=== PATIENT | male | born 1960 | race African-American/Black ===

== ENCOUNTER 2017-10-23 14:41 | Inpatient (IN) | payer OTHER ==
[2017-10-23 15:20] VITALS: BMI 28.8
--- NOTE | 2017-10-23 16:39 | HP ---
COWS - Scale Resting Pulse: 1= [place] 81-100 Sweatin=Flushed/Facial Moisture Restless Observation: 1= Difficult to Sit Still Pupil Size: 2= Moderately Dilated Bone or Joint Aches: 2= Severe Diffuse Aches Runny Nose/ Eye Tearin= None GI Upset > 30mins: 1= Stomach Cramp Tremor Observation: 1= Tremor [place], Not Seen Yawning Observation: 0= None Anxiety or Irritability: 2=Irritable/Anxious Goose Flesh Skin: 0=Smooth Skin COWS Score: 12 Admission [facility] Chief Complaint: Patient presents for Opiod withdrawal symptoms. Allergies/Adverse Reactions: Allergies Allergy/AdvReac Type Severity Reaction Status Date / Time Penicillins Allergy Severe Difficulty Verified 10/23/17 15:45 Breathing tomato [Tomato] Allergy Severe Hives Verified 10/23/17 15:45 pasta Allergy Severe Hives Uncoded 10/23/17 15:45 History of Present Illness: Patient presents for opiod withdrawal symptoms. Patient started taking Percocet at age 48 prescribed. After discontinuation of medication from MD patient started buying Percocet in the street. Patient takes up to 8 10/325mg tablets daily. Patient denies taking prescribed or non-prescribed Xanax. UDS negative for BZOs. Last time Percocet taken was early this morning. Patient also smoke crack/cocaine for 28 years. Smokes up to 100 dollars daily. Last time used was yesterday. PMH includes asthma. Denies SI/HI and suicide attempts. - Ebola screening Have you traveled outside of the country in the last 21 days: No Have you had contact with anyone from an Ebola affected area: No Have you been sick,other than usual withdrawal symptoms: No Do you have a fever: No - Review of Systems Constitutional: Chills, Night Sweats, Changes in sleep EENT: reports: No Symptoms Reported Respiratory: reports: No Symptoms reported Cardiac: reports: No Symptoms Reported GI: reports: Poor Fluid Intake, Abdominal cramping : reports: No Symptoms Reported Musculoskeletal: reports: Joint Pain, Muscle Pain Integumentary: reports: Sweating Neuro: reports: Headache, Tremors Endocrine: reports: No Symptoms Reported Hematology: reports: No Symptoms Reported Psychiatric: reports: Orientated x3, Anxious, Depressed Patient History - Patient Medical History Hx Anemia: No Hx Asthma: Yes (ON PUMP) Hx Chronic Obstructive Pulmonary Disease (COPD): No Hx Cancer: No Hx Cardiac Disorders: No Hx Congestive Heart Failure: No Hx Hypertension: Yes (not on meds) Hx Hypercholesterolemia: No Hx Pacemaker: No HX Cerebrovascular Accident: No Hx Seizures: No Hx Dementia: No Hx Diabetes: No Hx Gastrointestinal Disorders: No Hx Liver Disease: Yes Hx Genitourinary Disorders: No Hx Sexually Transmitted Disorders: Yes (GONORRHEA 1993) Hx Renal Disease (ESRD): No Hx Thyroid Disease: No Hx Human Immunodeficiency Virus (HIV): No Hx Hepatitis C: Yes (not treated) Hx Depression: No Hx Suicide Attempt: No Hx Bipolar Disorder: No Hx Schizophrenia: No - Patient Surgical History Past Surgical History: Yes Hx Neurologic Surgery: No Hx Cataract Extraction: No Hx Cardiac Surgery: No Hx Lung Surgery: No Hx Breast Surgery: No Hx Breast Biopsy: No Hx Abdominal Surgery: No Hx Appendectomy: Yes (1973) Hx Cholecystectomy: No Hx Genitourinary Surgery: No Hx Section: No Hx Orthopedic Surgery: Yes (right hip replacement in 07/2009) Hx Hysterectomy: No Other Surgical History: left mandible in 1988 Anesthesia Reaction: No - PPD History Results: CXR(-)03/25 PPD to be Administered?: No - Smoking Cessation Smoking history: Former smoker Have you smoked in the past 12 months: No Aproximately how many cigarettes per day: 2 If you are a former smoker, when did you quit?: 12/2015 Cigars Per Day: 0 Hx Chewing Tobacco Use: No Initiated information on smoking cessation: No - Substance & Tx. History Hx Alcohol Use: No Hx Substance Use: Yes Substance Use Type: Cocaine, Opiates Hx Substance Use Treatment: Yes - Substances Abused Cocaine Route: Smoking Frequency: 3-6 times per week Amount used: $100 Age of first use: 28 Date of Last Use: 10/22/17 PERCOCET Route: Oral Frequency: Daily Amount used: 5 -6 10MG PILLS DAILY Age of first use: 48 Date of Last Use: 10/22/17 Family Disease History - Family Disease History Family Disease History: [place]: Mother (breast), Other: Father (chronic alcoholism ) Admission Physical Exam BHS - Vital Signs Vital Signs: Vital Signs - 24 hr 10/23/17 10/23/17 15:18 15:44 Temperature 98.7 F 98.7 F Pulse Rate 93 H 93 H Respiratory 19 19 Rate Blood Pressure 143/91 143/91 - Physical General Appearance: Yes: Appropriately Dressed, Disheveled, Tremorous, Sweating , Anxious HEENTM: Yes: EOMI, Hearing grossly Normal, Normal ENT Inspection, Normocephalic , Normal Voice, CHAN, Pharynx Normal, Other (left lateral nose keloid) Respiratory: Yes: Chest Non-Tender, Lungs Clear, Normal Breath Sounds, No Respiratory Distress, No Accessory Muscle Use Neck: Yes: No masses,lesions,Nodules, Supple Breast: Yes: Breast Exam Deferred Cardiology: Yes: Regular Rhythm, Regular Rate, S1, S2 Abdominal: Yes: Normal Bowel Sounds, Non Tender, Soft Genitourinary: Yes: Within Normal Limits Back: Yes: Muscle Spasm Musculoskeletal: Yes: full range of Motion, Gait Steady, Back pain, Muscle Pain Extremities: Yes: Normal Inspection, Normal Range of Motion, Non-Tender, Tremors 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
[2017-10-23] MEDS ORDERED: MAGNESIUM CITRATE 300 ML BOTTLE PO PRN (16:47)
[2017-10-23] MEDS ORDERED: IBUPROFEN 400 MG TABLET (FP) PO PRN (16:47)
[2017-10-23] MEDS ORDERED: P-EPHED 60MG/TRIPROLIDI 2.5MG TABLET PO PRN (16:47)
[2017-10-23] MEDS ORDERED: MENTHOL/PHENOL 1 EACH UD MM PRN (16:47)
[2017-10-23] MEDS ORDERED: MAGNESIUM HYDROX 2400MG/30ML ORAL SUSPENSION 30 ML CUP PO PRN (16:47)
[2017-10-23] MEDS ORDERED: LOPERAMIDE HCL 2 MG CAPSULE PO PRN (16:47)
[2017-10-23] MEDS ORDERED: hydrOXYzine PAMOATE 50 MG CAPSULE (FP) PO PRN (16:47)
[2017-10-23] MEDS ORDERED: guaiFENesin/D-METHORPHAN HB 10 ML UNIT-DOSE CUPS PO PRN (16:47)
[2017-10-23] MEDS ORDERED: MAG HYDROX/AL HYDROX/SIMETH 30 ML UNIT-DOSE CUP PO PRN (16:47)
[2017-10-23] MEDS ORDERED: ACETAMINOPHEN 325 MG TABLET (FP) PO PRN (16:47)
[2017-10-23] MEDS ORDERED: ALBUTEROL SO4 18 GM HFA INHALER IH PRN (16:48)
[2017-10-23] MEDS ORDERED: METHADONE HCL 10 MG TABLET (FOR DETOX USE ONLY) PO ONE ×2 (18:00→23:00)
[2017-10-23] MEDS ORDERED: MELATONIN 5 MG TABLETS PO PRN (22:00)
[2017-10-23] MEDS: THIAMINE HCL 100 MG TABLET (FP) PO SCH (22:34)
[2017-10-24] MEDS: diazePAM 5 MG TABLET PO PRN ×2 (05:33→22:09)
--- NOTE | 2017-10-24 09:23 | EKG ---
Test Reason : Blood Pressure : / mmHG Vent. Rate : 075 BPM Atrial Rate : 075 BPM P-R Int : 138 ms QRS Dur : 084 ms QT Int : 374 ms P-R-T Axes : 069 049 038 degrees QTc Int : 417 ms NORMAL SINUS RHYTHM MINIMAL VOLTAGE CRITERIA FOR LVH, MAY BE NORMAL VARIANT BORDERLINE ECG WHEN COMPARED WITH ECG OF 09-AUG-2014 15:28, NO SIGNIFICANT CHANGE WAS FOUND Confirmed by KAYA HUFFMAN, LARISSA ([id number]) on 10/24/2017 9:23:00 AM Referred By: Confirmed By:LARISSA KIRKPATRICK MD
[2017-10-24 09:59] LABS: URINE APPEARANCE CLEAR; URINE BILIRUBIN NEGATIVE (<2.0 mg/dL); URINE COLOR YELLOW; URINE GLUCOSE (UA) NEGATIVE (NEGATIVE); URINE KETONE NEGATIVE (NEGATIVE); URINE LEUK ESTERASE NEGATIVE (NEGATIVE); URINE NITRITE NEGATIVE (NEGATIVE); URINE PROTEIN NEGATIVE (NEGATIVE)
[2017-10-24 10:00] LABS: HEMATOCRIT 38.8 % (35.4-49); HEMOGLOBIN 12.6 GM/dL (11.7-16.9); MCH 25.5 pg (25.7-33.7); MCHC 32.5 g/dl (32.0-35.9); MEAN CELL VOLUME 78.5 fl (80-96); MEAN PLT VOLUME 10.2 fl (7.5-11.1); PLATELET COUNT 126 K/MM3 (134-434); RBC 4.95 M/mm3 (4.00-5.60); RDW 18.6 % (11.9-15.9); WHITE BLOOD COUNT 6.7 K/mm3 (4.0-10.0)
[2017-10-24] MEDS ORDERED: METHADONE HCL 10 MG TABLET (FOR DETOX USE ONLY) PO ONE (10:00)
[2017-10-24] MEDS: PRENATAL VITAMINS W/ FOLIC ACID TABLET (FP) PO SCH (10:14)
[2017-10-24 10:42] LABS: CHLORIDE 104 mmol/L (98-107); POTASSIUM 3.8 mmol/L (3.5-5.1); SODIUM 141 mmol/L (136-145)
[2017-10-24 11:12] LABS: ALBUMIN 2.8 g/dl (3.4-5.0); ALK PHOS 207 U/L (45-117); ANION GAP 9 (8-16); BILIRUBIN,TOTAL 0.5 mg/dL (0.2-1.0); BLOOD UREA NITROGEN 17 mg/dL (7-18); CO2 28 mmol/L (21-32); CREATININE 0.9 mg/dL (0.7-1.3); GLUCOSE,RANDOM 251 mg/dL (74-106); SGOT/AST 78 U/L (15-37); SGPT/ALT 124 U/L (12-78)
--- NOTE | 2017-10-24 13:37 | PN ---
S COWS - Scale Resting Pulse: 1= [place] 81-100 Sweatin=Flushed/Facial Moisture Restless Observation: 1= Difficult to Sit Still Pupil Size: 0= Normal to Room Light Bone or Joint Aches: 1= Mild Discomfort Runny Nose/ Eye Tearin= Nasal Congestion GI Upset > 30mins: 2= Nausea/Diarrhea Tremor Observation of Outstretched Hands: 2= Slight Tremor Visible Yawning Observation: 0= None Anxiety or Irritability: 2=Irritable/Anxious Goose Flesh Skin: 0=Smooth Skin COWS Score: 12 S Progress Note (SOAP) Subjective: Denies any complaints Requesting "powder" for foot Objective: 10/24/17 13:34 A & O x 3 Ambulating steadily on unit Refusing to answer assessment questions Irritable Vital Signs Temperature 97.3 F L 10/24/17 10:14 Pulse Rate 95 H 10/24/17 10:14 Respiratory Rate 20 10/24/17 10:14 Blood Pressure 153/83 10/24/17 10:14 O2 Sat by Pulse Oximetry (%) Refuse Bp meds, syayes "I am fine, I dont want anything except the podwer for my foot" Laboratory Last Values WBC 6.7 K/mm3 (4.0-10.0) D 10/24/17 08:00 RBC 4.95 M/mm3 (4.00-5.60) 10/24/17 08:00 Hgb 12.6 GM/dL (11.7-16.9) 10/24/17 08:00 Hct 38.8 % (35.4-49) 10/24/17 08:00 MCV 78.5 fl (80-96) L 10/24/17 08:00 MCH 25.5 pg (25.7-33.7) L 10/24/17 08:00 MCHC 32.5 g/dl (32.0-35.9) 10/24/17 08:00 RDW 18.6 % (11.9-15.9) H 10/24/17 08:00 Plt Count 126 K/MM3 (134-434) L D 10/24/17 08:00 MPV 10.2 fl (7.5-11.1) 10/24/17 08:00 Sodium 141 mmol/L (136-145) 10/24/17 08:00 Potassium 3.8 mmol/L (3.5-5.1) 10/24/17 08:00 Chloride 104 mmol/L (98-107) 10/24/17 08:00 Carbon Dioxide 28 mmol/L (21-32) 10/24/17 08:00 Anion Gap 9 (8-16) 10/24/17 08:00 BUN 17 mg/dL (7-18) 10/24/17 08:00 Creatinine 0.9 mg/dL (0.7-1.3) 10/24/17 08:00 Creat Clearance w eGFR > 60 (>60) 10/24/17 08:00 Random Glucose 251 mg/dL (74-106) H D 10/24/17 08:00 Calcium 8.0 mg/dL (8.5-10.1) L 10/24/17 08:00 Total Bilirubin 0.5 mg/dL (0.2-1.0) D 10/24/17 08:00 AST 78 U/L (15-37) H D 10/24/17 08:00 ALT 124 U/L (12-78) H D 10/24/17 08:00 Alkaline Phosphatase 207 U/L (45-117) H D 10/24/17 08:00 Total Protein 6.0 g/dl (6.4-8.2) L 10/24/17 08:00 Albumin 2.8 g/dl (3.4-5.0) L D 10/24/17 08:00 Urine Color Yellow 10/24/17 08:00 Urine Appearance Clear 10/24/17 08:00 Urine pH 5.0 (5.0-8.0) 10/24/17 08:00 Ur Specific [place] 1.020 (1.001-1.035) 10/24/17 08:00 Urine Protein Negative (NEGATIVE) 10/24/17 08:00 Urine Glucose (UA) Negative (NEGATIVE) 10/24/17 08:00 Urine Ketones Negative (NEGATIVE) 10/24/17 08:00 Urine Blood Negative (NEGATIVE) 10/24/17 08:00 Urine Nitrite Negative (NEGATIVE) 10/24/17 08:00 Urine Bilirubin Negative (<2.0 mg/dL) 10/24/17 08:00 Urine Urobilinogen 2.0 mg/dL (0.2-1.0) 10/24/17 08:00 Ur Leukocyte Esterase Negative (NEGATIVE) 10/24/17 08:00 labs noted. High liver ezymes, + urinobilinogen in line with HEp C 10/24/17 13:38 Assessment: 10/24/17 13:37 withdrawal sx No fungal infection noted to feet Plan: Continue detox efusing Bp meds
[2017-10-24] MEDS: THIAMINE HCL 100 MG TABLET (FP) PO SCH (22:09)
[2017-10-25] MEDS ORDERED: METHADONE HCL 5 MG TABLET (FOR DETOX USE ONLY) PO ONE (10:00)
[2017-10-25] MEDS: PRENATAL VITAMINS W/ FOLIC ACID TABLET (FP) PO SCH (10:14)
--- NOTE | 2017-10-25 13:33 | PN ---
S COWS - Scale Resting Pulse: 2= [place] 101-120 Sweatin= Chills/Flushing Restless Observation: 1= Difficult to Sit Still Pupil Size: 1= Pupils >than Normal Bone or Joint Aches: 1= Mild Discomfort Runny Nose/ Eye Tearin= Nasal Congestion GI Upset > 30mins: 1= Stomach Cramp Tremor Observation of Outstretched Hands: 1= Tremor [place], Not Seen Yawning Observation: 1= 1-2x During Session Anxiety or Irritability: 1=Feels Anxious/Irritable Goose Flesh Skin: 0=Smooth Skin COWS Score: 11 S Progress Note (SOAP) Subjective: BODY RESTLESSNESS JOINT PAIN SWEAT GI DISTRESS ANXIETY Objective: 10/25/17 13:33 Vital Signs Temperature 97.7 F 10/25/17 09:49 Pulse Rate 97 H 10/25/17 09:49 Respiratory Rate 18 10/25/17 09:49 Blood Pressure 129/91 10/25/17 09:49 O2 Sat by Pulse Oximetry (%) Laboratory Last Values WBC 6.7 K/mm3 (4.0-10.0) D 10/24/17 08:00 RBC 4.95 M/mm3 (4.00-5.60) 10/24/17 08:00 Hgb 12.6 GM/dL (11.7-16.9) 10/24/17 08:00 Hct 38.8 % (35.4-49) 10/24/17 08:00 MCV 78.5 fl (80-96) L 10/24/17 08:00 MCH 25.5 pg (25.7-33.7) L 10/24/17 08:00 MCHC 32.5 g/dl (32.0-35.9) 10/24/17 08:00 RDW 18.6 % (11.9-15.9) H 10/24/17 08:00 Plt Count 126 K/MM3 (134-434) L D 10/24/17 08:00 MPV 10.2 fl (7.5-11.1) 10/24/17 08:00 Sodium 141 mmol/L (136-145) 10/24/17 08:00 Potassium 3.8 mmol/L (3.5-5.1) 10/24/17 08:00 Chloride 104 mmol/L (98-107) 10/24/17 08:00 Carbon Dioxide 28 mmol/L (21-32) 10/24/17 08:00 Anion Gap 9 (8-16) 10/24/17 08:00 BUN 17 mg/dL (7-18) 10/24/17 08:00 Creatinine 0.9 mg/dL (0.7-1.3) 10/24/17 08:00 Creat Clearance w eGFR > 60 (>60) 10/24/17 08:00 Random Glucose 251 mg/dL (74-106) H D 10/24/17 08:00 Calcium 8.0 mg/dL (8.5-10.1) L 10/24/17 08:00 Total Bilirubin 0.5 mg/dL (0.2-1.0) D 10/24/17 08:00 AST 78 U/L (15-37) H D 10/24/17 08:00 ALT 124 U/L (12-78) H D 10/24/17 08:00 Alkaline Phosphatase 207 U/L (45-117) H D 10/24/17 08:00 Total Protein 6.0 g/dl (6.4-8.2) L 10/24/17 08:00 Albumin 2.8 g/dl (3.4-5.0) L D 10/24/17 08:00 Urine Color Yellow 10/24/17 08:00 Urine Appearance Clear 10/24/17 08:00 Urine pH 5.0 (5.0-8.0) 10/24/17 08:00 Ur Specific [place] 1.020 (1.001-1.035) 10/24/17 08:00 Urine Protein Negative (NEGATIVE) 10/24/17 08:00 Urine Glucose (UA) Negative (NEGATIVE) 10/24/17 08:00 Urine Ketones Negative (NEGATIVE) 10/24/17 08:00 Urine Blood Negative (NEGATIVE) 10/24/17 08:00 Urine Nitrite Negative (NEGATIVE) 10/24/17 08:00 Urine Bilirubin Negative (<2.0 mg/dL) 10/24/17 08:00 Urine Urobilinogen 2.0 mg/dL (0.2-1.0) 10/24/17 08:00 Ur Leukocyte Esterase Negative (NEGATIVE) 10/24/17 08:00 RPR Titer Nonreactive (NONREACTIVE) 10/24/17 08:00 HIV 1&2 Antibody Screen Negative 10/24/17 08:00 HIV P24 Antigen Negative 10/24/17 08:00 LAB NOTED Assessment: 10/25/17 13:33 WITHDRAWAL SX Plan: CONTINUE DETOX
--- NOTE | 2017-10-25 16:52 | PN ---
S Progress Note Note: Pt's BP continues to be elevated. C/o headache, denies any other c/o Clonidine STAT dose ordered [facility] for a.m Bp monitoring ongoing
[2017-10-25] MEDS ORDERED: cloNIDine HCL 0.1 MG TABLET PO ONE (17:00)
[2017-10-25] MEDS: amLODIPine BESYLATE 10 MG TABLET (FP) PO SCH (17:46)
[2017-10-25] MEDS: THIAMINE HCL 100 MG TABLET (FP) PO SCH (22:32)
[2017-10-25] MEDS: diazePAM 5 MG TABLET PO PRN (22:32)
[2017-10-26] MEDS ORDERED: METHADONE HCL 5 MG TABLET (FOR DETOX USE ONLY) PO ONE (10:00)
[2017-10-26] MEDS: PRENATAL VITAMINS W/ FOLIC ACID TABLET (FP) PO SCH (10:37)
[2017-10-26] MEDS: amLODIPine BESYLATE 10 MG TABLET (FP) PO SCH (10:37)
--- NOTE | 2017-10-26 14:43 | PN ---
BHS Progress Note (SOAP) Subjective: joint pain body ache the nurse offers tylenal / motrin / naproxin patient refuses chill hot trouble sleep at night patient reported fell "last night" in his room, and today in his room, denies dizziness denies shortness of breath due to no consequences of limitations from fall and refusal of ER evaluation and no x ray available after 1300 order x ray both hips for 10/27/17 Objective: 10/26/17 14:43 Vital Signs Temperature 98.8 F 10/26/17 14:04 Pulse Rate 95 H 10/26/17 14:04 Respiratory Rate 18 10/26/17 14:04 Blood Pressure 147/86 10/26/17 14:04 O2 Sat by Pulse Oximetry (%) Laboratory Last Values WBC 6.7 K/mm3 (4.0-10.0) D 10/24/17 08:00 RBC 4.95 M/mm3 (4.00-5.60) 10/24/17 08:00 Hgb 12.6 GM/dL (11.7-16.9) 10/24/17 08:00 Hct 38.8 % (35.4-49) 10/24/17 08:00 MCV 78.5 fl (80-96) L 10/24/17 08:00 MCH 25.5 pg (25.7-33.7) L 10/24/17 08:00 MCHC 32.5 g/dl (32.0-35.9) 10/24/17 08:00 RDW 18.6 % (11.9-15.9) H 10/24/17 08:00 Plt Count 126 K/MM3 (134-434) L D 10/24/17 08:00 MPV 10.2 fl (7.5-11.1) 10/24/17 08:00 Sodium 141 mmol/L (136-145) 10/24/17 08:00 Potassium 3.8 mmol/L (3.5-5.1) 10/24/17 08:00 Chloride 104 mmol/L (98-107) 10/24/17 08:00 Carbon Dioxide 28 mmol/L (21-32) 10/24/17 08:00 Anion Gap 9 (8-16) 10/24/17 08:00 BUN 17 mg/dL (7-18) 10/24/17 08:00 Creatinine 0.9 mg/dL (0.7-1.3) 10/24/17 08:00 Creat Clearance w eGFR > 60 (>60) 10/24/17 08:00 Random Glucose 251 mg/dL (74-106) H D 10/24/17 08:00 Calcium 8.0 mg/dL (8.5-10.1) L 10/24/17 08:00 Total Bilirubin 0.5 mg/dL (0.2-1.0) D 10/24/17 08:00 AST 78 U/L (15-37) H D 10/24/17 08:00 ALT 124 U/L (12-78) H D 10/24/17 08:00 Alkaline Phosphatase 207 U/L (45-117) H D 10/24/17 08:00 Total Protein 6.0 g/dl (6.4-8.2) L 10/24/17 08:00 Albumin 2.8 g/dl (3.4-5.0) L D 10/24/17 08:00 Urine Color Yellow 10/24/17 08:00 Urine Appearance Clear 10/24/17 08:00 Urine pH 5.0 (5.0-8.0) 10/24/17 08:00 Ur Specific [place] 1.020 (1.001-1.035) 10/24/17 08:00 Urine Protein Negative (NEGATIVE) 10/24/17 08:00 Urine Glucose (UA) Negative (NEGATIVE) 10/24/17 08:00 Urine Ketones Negative (NEGATIVE) 10/24/17 08:00 Urine Blood Negative (NEGATIVE) 10/24/17 08:00 Urine Nitrite Negative (NEGATIVE) 10/24/17 08:00 Urine Bilirubin Negative (<2.0 mg/dL) 10/24/17 08:00 Urine Urobilinogen 2.0 mg/dL (0.2-1.0) 10/24/17 08:00 Ur Leukocyte Esterase Negative (NEGATIVE) 10/24/17 08:00 RPR Titer Nonreactive (NONREACTIVE) 10/24/17 08:00 HIV 1&2 Antibody Screen Negative 10/24/17 08:00 HIV P24 Antigen Negative 10/24/17 08:00 lab noted patient ambulating on lam way helping peer sitting down on vital sign chair unwitnessed fall protocol #1 fall precaution ER evaluation patient refuses ER evaluation risks and benefits ER evaluation explained "I do not want to go the the ER" threaten to walk out the unit if ER evaluation 10/26/17 14:48 Assessment: 10/26/17 14:47 withdrawal sx ER evaluation unwitnessed fall 10/26/17 14:48 [id number] ambulance was call in the process of giving report to the ER patient yelling out loud that he does not want to go to ER Plan: continue detox the nurse call off the ambulance hold information to ER offer a cane for ambulation when artificial hip "locked" patient refuses the cane
[2017-10-26] MEDS: LISINOPRIL 5 MG TABLET (FP) PO SCH (22:22)
[2017-10-26] MEDS: THIAMINE HCL 100 MG TABLET (FP) PO SCH (22:23)
[2017-10-27] MEDS ORDERED: METHADONE HCL 10 MG TABLET (FOR DETOX USE ONLY) PO ONE (10:00)
[2017-10-27] MEDS: LISINOPRIL 5 MG TABLET (FP) PO SCH ×2 (10:41→22:40)
[2017-10-27] MEDS: amLODIPine BESYLATE 10 MG TABLET (FP) PO SCH (10:41)
[2017-10-27] MEDS: PRENATAL VITAMINS W/ FOLIC ACID TABLET (FP) PO SCH (10:43)
--- NOTE | 2017-10-27 11:41 | PN ---
BHS Progress Note (SOAP) Subjective: feeling better less joints pain slept through out the night patient refuses x ray of the hips denies pain denies alteration in usual gait Objective: 10/27/17 11:39 Vital Signs Temperature 98.2 F 10/27/17 09:30 Pulse Rate 104 H 10/27/17 09:30 Respiratory Rate 20 10/27/17 09:30 Blood Pressure 133/98 10/27/17 09:30 O2 Sat by Pulse Oximetry (%) Laboratory Last Values WBC 6.7 K/mm3 (4.0-10.0) D 10/24/17 08:00 RBC 4.95 M/mm3 (4.00-5.60) 10/24/17 08:00 Hgb 12.6 GM/dL (11.7-16.9) 10/24/17 08:00 Hct 38.8 % (35.4-49) 10/24/17 08:00 MCV 78.5 fl (80-96) L 10/24/17 08:00 MCH 25.5 pg (25.7-33.7) L 10/24/17 08:00 MCHC 32.5 g/dl (32.0-35.9) 10/24/17 08:00 RDW 18.6 % (11.9-15.9) H 10/24/17 08:00 Plt Count 126 K/MM3 (134-434) L D 10/24/17 08:00 MPV 10.2 fl (7.5-11.1) 10/24/17 08:00 Sodium 141 mmol/L (136-145) 10/24/17 08:00 Potassium 3.8 mmol/L (3.5-5.1) 10/24/17 08:00 Chloride 104 mmol/L (98-107) 10/24/17 08:00 Carbon Dioxide 28 mmol/L (21-32) 10/24/17 08:00 Anion Gap 9 (8-16) 10/24/17 08:00 BUN 17 mg/dL (7-18) 10/24/17 08:00 Creatinine 0.9 mg/dL (0.7-1.3) 10/24/17 08:00 Creat Clearance w eGFR > 60 (>60) 10/24/17 08:00 Random Glucose 251 mg/dL (74-106) H D 10/24/17 08:00 Calcium 8.0 mg/dL (8.5-10.1) L 10/24/17 08:00 Total Bilirubin 0.5 mg/dL (0.2-1.0) D 10/24/17 08:00 AST 78 U/L (15-37) H D 10/24/17 08:00 ALT 124 U/L (12-78) H D 10/24/17 08:00 Alkaline Phosphatase 207 U/L (45-117) H D 10/24/17 08:00 Total Protein 6.0 g/dl (6.4-8.2) L 10/24/17 08:00 Albumin 2.8 g/dl (3.4-5.0) L D 10/24/17 08:00 Urine Color Yellow 10/24/17 08:00 Urine Appearance Clear 10/24/17 08:00 Urine pH 5.0 (5.0-8.0) 10/24/17 08:00 Ur Specific [place] 1.020 (1.001-1.035) 10/24/17 08:00 Urine Protein Negative (NEGATIVE) 10/24/17 08:00 Urine Glucose (UA) Negative (NEGATIVE) 10/24/17 08:00 Urine Ketones Negative (NEGATIVE) 10/24/17 08:00 Urine Blood Negative (NEGATIVE) 10/24/17 08:00 Urine Nitrite Negative (NEGATIVE) 10/24/17 08:00 Urine Bilirubin Negative (<2.0 mg/dL) 10/24/17 08:00 Urine Urobilinogen 2.0 mg/dL (0.2-1.0) 10/24/17 08:00 Ur Leukocyte Esterase Negative (NEGATIVE) 10/24/17 08:00 RPR Titer Nonreactive (NONREACTIVE) 10/24/17 08:00 HIV 1&2 Antibody Screen Negative 10/24/17 08:00 HIV P24 Antigen Negative 10/24/17 08:00 lab noted Assessment: 10/27/17 11:40 mild withdrawal sx Plan: medically supervised detox
[2017-10-27] MEDS: THIAMINE HCL 100 MG TABLET (FP) PO SCH (22:40)
[2017-10-28] MEDS ORDERED: METHADONE HCL 5 MG TABLET (FOR DETOX USE ONLY) PO ONE (06:00)
--- NOTE | 2017-10-28 09:00 | DS ---
[facility] Detox Discharge Summary Admission Date: 10/23/17 Discharge Date: 10/28/17 - History Present History: Opioid Dependence Additional Comments: 56 years old male admitted 10/23/17 for opiate withdrawal sx completed opiate detox regimen tolerate well denies opiate withdrawal sx alert oriented x 3 no acute distress aftercare [facility] - Physical Exam Results Vital Signs: Vital Signs Temperature 98.4 F 10/27/17 22:21 Pulse Rate 98 H 10/27/17 22:21 Respiratory Rate 18 10/28/17 03:30 Blood Pressure 143/80 10/27/17 22:21 O2 Sat by Pulse Oximetry (%) Pertinent Admission Physical Exam Findings: opiate withdrawal sx Vital Signs Temperature 98.4 F 10/27/17 22:21 Pulse Rate 98 H 10/27/17 22:21 Respiratory Rate 18 10/28/17 03:30 Blood Pressure 143/80 10/27/17 22:21 O2 Sat by Pulse Oximetry (%) Laboratory Last Values WBC 6.7 K/mm3 (4.0-10.0) D 10/24/17 08:00 RBC 4.95 M/mm3 (4.00-5.60) 10/24/17 08:00 Hgb 12.6 GM/dL (11.7-16.9) 10/24/17 08:00 Hct 38.8 % (35.4-49) 10/24/17 08:00 MCV 78.5 fl (80-96) L 10/24/17 08:00 MCH 25.5 pg (25.7-33.7) L 10/24/17 08:00 MCHC 32.5 g/dl (32.0-35.9) 10/24/17 08:00 RDW 18.6 % (11.9-15.9) H 10/24/17 08:00 Plt Count 126 K/MM3 (134-434) L D 10/24/17 08:00 MPV 10.2 fl (7.5-11.1) 10/24/17 08:00 Sodium 141 mmol/L (136-145) 10/24/17 08:00 Potassium 3.8 mmol/L (3.5-5.1) 10/24/17 08:00 Chloride 104 mmol/L (98-107) 10/24/17 08:00 Carbon Dioxide 28 mmol/L (21-32) 10/24/17 08:00 Anion Gap 9 (8-16) 10/24/17 08:00 BUN 17 mg/dL (7-18) 10/24/17 08:00 Creatinine 0.9 mg/dL (0.7-1.3) 10/24/17 08:00 Creat Clearance w eGFR > 60 (>60) 10/24/17 08:00 Random Glucose 251 mg/dL (74-106) H D 10/24/17 08:00 Calcium 8.0 mg/dL (8.5-10.1) L 10/24/17 08:00 Total Bilirubin 0.5 mg/dL (0.2-1.0) D 10/24/17 08:00 AST 78 U/L (15-37) H D 10/24/17 08:00 ALT 124 U/L (12-78) H D 10/24/17 08:00 Alkaline Phosphatase 207 U/L (45-117) H D 10/24/17 08:00 Total Protein 6.0 g/dl (6.4-8.2) L 10/24/17 08:00 Albumin 2.8 g/dl (3.4-5.0) L D 10/24/17 08:00 Urine Color Yellow 10/24/17 08:00 Urine Appearance Clear 10/24/17 08:00 Urine pH 5.0 (5.0-8.0) 10/24/17 08:00 Ur Specific [place] 1.020 (1.001-1.035) 10/24/17 08:00 Urine Protein Negative (NEGATIVE) 10/24/17 08:00 Urine Glucose (UA) Negative (NEGATIVE) 10/24/17 08:00 Urine Ketones Negative (NEGATIVE) 10/24/17 08:00 Urine Blood Negative (NEGATIVE) 10/24/17 08:00 Urine Nitrite Negative (NEGATIVE) 10/24/17 08:00 Urine Bilirubin Negative (<2.0 mg/dL) 10/24/17 08:00 Urine Urobilinogen 2.0 mg/dL (0.2-1.0) 10/24/17 08:00 Ur Leukocyte Esterase Negative (NEGATIVE) 10/24/17 08:00 RPR Titer Nonreactive (NONREACTIVE) 10/24/17 08:00 HIV 1&2 Antibody Screen Negative 10/24/17 08:00 HIV P24 Antigen Negative 10/24/17 08:00 lab noted - Treatment Hospital Course: Detox Protocol Followed, Detoxed Safely, Responded well, Discharged Condition Good, Rehab Referral Accepted Patient has Accepted a Rehab Referral to: [facility] - Medication Discharge Medications: Ambulatory Orders Albuterol Sulfate Inhaler - [Ventolin HFA Inhaler -] 2 inh PO Q4H PRN #1 inhaler 10/27/17 Amlodipine Besylate [Norvasc -] 10 mg PO DAILY #30 tablet 10/27/17 - Diagnosis (1) Opioid dependence with withdrawal Current Visit: Yes Status: Acute (2) Hypertension Current Visit: Yes Status: Chronic Qualifiers: Hypertension type: essential hypertension Qualified Code(s): I10 - Essential (primary) hypertension (3) Asthma Current Visit: Yes Status: Chronic Qualifiers: Asthma severity: mild Asthma persistence: intermittent Asthma complication type: with status asthmaticus Qualified Code(s): J45.22 - Mild intermittent asthma with status asthmaticus (4) Hepatitis C Current Visit: No Status: Resolved Qualifiers: Viral hepatitis chronicity: chronic Hepatic coma status: without hepatic coma Qualified Code(s): B18.2 - Chronic viral hepatitis C - AMA Did Patient Leave Against Medical Advice: No
[2017-10-28 11:22] VITALS: BP 120/83; PULSE 102; TEMP 98.4
[2017-10-28] MEDS: PRENATAL VITAMINS W/ FOLIC ACID TABLET (FP) PO SCH (11:26)
[2017-10-28] MEDS: LISINOPRIL 5 MG TABLET (FP) PO SCH (11:26)
[2017-10-28] MEDS: amLODIPine BESYLATE 10 MG TABLET (FP) PO SCH (11:26)
== END 2017-10-28 11:55 | disposition home or self-care (01) | DRG 773 ==
LOC: YASAS 14:41 → Y6N 17:43
PROVIDERS: ADMIT Family Medicine Addiction Medicine; ATTEND Family Medicine Addiction Medicine
PROC: HZ2ZZZZ Detoxification Services for Substance Abuse Treatment (ICD-10-PCS; principal; 2017-10-23)
DX: F11.23 Opioid dependence with withdrawal (principal); F14.20 Cocaine dependence, uncomplicated; F17.210 Nicotine dependence, cigarettes, uncomplicated; F19.24 Other psychoactive substance dependence with psychoactive substance-induced mood disorder; F41.8 Other specified anxiety disorders; I10 Essential (primary) hypertension; J45.22 Mild intermittent asthma with status asthmaticus; B18.2 Chronic viral hepatitis C; Z86.19 Personal history of other infectious and parasitic diseases; Z96.641 Presence of right artificial hip joint; Z91.018 Allergy to other foods; Z88.0 Allergy status to penicillin
CPT/HCPCS: 36415; 71046-TC-FY; 80053; 81003; 85027; 86593; 87389; 93005; 93010; J0735

== ENCOUNTER 2018-01-07 11:27 | Inpatient (IN) | payer OTHER ==
[2018-01-07 13:16] VITALS: BMI 22.2
--- NOTE | 2018-01-07 18:20 | HP ---
COWS - Scale Resting Pulse: 2= [place] 101-120 Sweatin= Chills/Flushing Restless Observation: 1= Difficult to Sit Still Pupil Size: 1= Pupils >than Normal Bone or Joint Aches: 2= Severe Diffuse Aches Runny Nose/ Eye Tearin= Runny Nose/Eyes GI Upset > 30mins: 2= Nausea/Diarrhea Tremor Observation: 0= None Yawning Observation: 1= 1-2x During Session Anxiety or Irritability: 1=Feels Anxious/Irritable Goose Flesh Skin: 3=Piloerection COWS Score: 16 Admission ROS S - HPI Chief Complaint: WITHDRAWAL SYMPTOMS Allergies/Adverse Reactions: Allergies Allergy/AdvReac Type Severity Reaction Status Date / Time Penicillins Allergy Severe Difficulty Verified 01/07/18 16:24 Breathing tomato [Tomato] Allergy Severe Hives Verified 01/07/18 16:24 pasta Allergy Severe Hives Uncoded 01/07/18 16:24 History of Present Illness: 57 Y.O. MAN WITH A HISTORY 8 YEAR HISTORY OF OPIATE DEPENDENCE IS HERE SEEKING DETOX. HE HAS HAD MULTIPLE ADMISSIONS HERE FOR DETOX WITH HIS LAST ADMISSION BEING 10/2017. DOES NOT HAVE A SIGNIFICANT PERIOD OF ILLICIT DRUG ABSTINENCE. Exam Limitations: Physical Impairment - Ebola screening Have you traveled outside of the country in the last 21 days: No Have you been sick,other than usual withdrawal symptoms: No - Review of Systems Constitutional: Chills, Loss of Appetite, Night Sweats, Unintentional Wgt. Loss EENT: reports: Blurred Vision, Tearing Respiratory: reports: No Symptoms reported Cardiac: reports: No Symptoms Reported GI: reports: Diarrhea : reports: No Symptoms Reported Musculoskeletal: reports: Back Pain, Joint Pain (B/L HIP PAIN) Integumentary: reports: No Symptoms Reported Neuro: reports: No Symptoms reported Endocrine: reports: No Symptoms Reported Hematology: reports: No Symptoms Reported Psychiatric: reports: Orientated x3 Other Systems: Reviewed and Negative Patient History - Patient Medical History Hx Anemia: No Hx Asthma: Yes (ON PUMP) Hx Chronic Obstructive Pulmonary Disease (COPD): Yes Hx Cancer: No Hx Cardiac Disorders: No Hx Congestive Heart Failure: No Hx Hypertension: Yes (not on meds) Hx Hypercholesterolemia: No Hx Pacemaker: No HX Cerebrovascular Accident: No Hx Seizures: No Hx Dementia: No Hx Diabetes: No Hx Gastrointestinal Disorders: No Hx Liver Disease: Yes (HEP B (TREATED)) Hx Genitourinary Disorders: No Hx Sexually Transmitted Disorders: Yes (GONORRHEA 1993) Hx Renal Disease (ESRD): No Hx Thyroid Disease: No Hx Human Immunodeficiency Virus (HIV): No Hx Hepatitis C: Yes (not treated) Hx Depression: No Hx Suicide Attempt: No Hx Bipolar Disorder: No Hx Schizophrenia: No - Patient Surgical History Past Surgical History: Yes Hx Neurologic Surgery: No Hx Cataract Extraction: No Hx Cardiac Surgery: No Hx Lung Surgery: No Hx Breast Surgery: No Hx Breast Biopsy: No Hx Abdominal Surgery: No Hx Appendectomy: Yes (1973) Hx Cholecystectomy: No Hx Genitourinary Surgery: No Hx Section: No Hx Orthopedic Surgery: Yes (right wrist fx repair 1973; right hip replacement in 07/2009) Hx Hysterectomy: No Other Surgical History: left mandible in 1988 Anesthesia Reaction: No - PPD History Documented Results: Positive w/proof Results: CXR(-)10/2017 PPD to be Administered?: No - Reproductive History Patient is a Female of Child Bearing Age (11 -55 yrs old): No - Smoking Cessation Smoking history: Former smoker Have you smoked in the past 12 months: No Aproximately how many cigarettes per day: 2 If you are a former smoker, when did you quit?: 12/2015 Cigars Per Day: 0 Hx Chewing Tobacco Use: No Initiated information on smoking cessation: No - Substance & Tx. History Hx Alcohol Use: No Hx Substance Use: Yes Substance Use Type: Opiates Hx Substance Use Treatment: Yes (DETOX: 10/2017; REHAB: 2015) - Substances Abused OXYCODONE Route: Oral Frequency: Daily Amount used: 4-6 30 MG PILLS Age of first use: 48 Date of Last Use: 01/07/18 Family Disease History - Family Disease History Family Disease History: CA: Mother (breast), Other: Father (chronic alcoholism ) Admission Physical Exam BHS - Vital Signs Vital Signs: Vital Signs - 24 hr 01/07/18 13:13 Temperature 99 F Pulse Rate 116 H Respiratory 18 Rate Blood Pressure 151/86 - Physical General Appearance: Yes: Sweating, Anxious HEENTM: Yes: Hearing grossly Normal, Normocephalic, Other (LEFT-SIDED FACIAL DROOPING. 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 NML intact, Fully Oriented, Alert, Motor Strength 5/5, Normal Mood/Affect, Normal Response Integumentary: Yes: Normal Color, Dry, Warm Lymphatic: Yes: Within Normal Limits - Diagnostic (1) Bear's palsy Current Visit: Yes Status: Acute (2) Myopia of left eye Current Visit: Yes Status: Acute (3) Opioid dependence with withdrawal Current Visit: Yes Status: Acute (4) Asthma Current Visit: Yes Status: Chronic Qualifiers: Asthma severity: mild Asthma persistence: intermittent Asthma complication type: with status asthmaticus Qualified Code(s): J45.22 - Mild intermittent asthma with status asthmaticus (5) COPD (chronic obstructive pulmonary disease) Current Visit: Yes Status: Chronic (6) Cocaine dependence Current Visit: Yes Status: Chronic Qualifiers: Substance use status: uncomplicated Qualified Code(s): F14.20 - Cocaine dependence, uncomplicated (7) History of hip replacement, total Current Visit: No Status: Chronic (8) Hypertension Current Visit: Yes Status: Chronic Qualifiers: Hypertension type: essential hypertension Qualified Code(s): I10 - Essential (primary) hypertension (9) Hepatitis C Current Visit: No Status: Resolved Qualifiers: Viral hepatitis chronicity: chronic Hepatic coma status: without hepatic coma Qualified Code(s): B18.2 - Chronic viral hepatitis C Cleared for Admission S - Detox or Rehab [facility] Level of Care: Medically Managed Detox Regimen/Protocol: Methadone [facility] Breath Alcohol Content Breath Alcohol Content: 0 Urine Drug Screen - Results Drug Screen Negative: No Urine Drug Screen Results: AIN-Cocaine, MTD-Methadone, OXY-Oxycodone
[2018-01-07] MEDS ORDERED: hydrOXYzine PAMOATE 50 MG CAPSULE (FP) PO PRN (18:28)
[2018-01-07] MEDS ORDERED: MAGNESIUM HYDROX 2400MG/30ML ORAL SUSPENSION 30 ML CUP PO PRN (18:28)
[2018-01-07] MEDS ORDERED: MENTHOL/PHENOL 1 EACH UD MM PRN (18:28)
[2018-01-07] MEDS ORDERED: IBUPROFEN 400 MG TABLET (FP) PO PRN (18:28)
[2018-01-07] MEDS ORDERED: MAG HYDROX/AL HYDROX/SIMETH 30 ML UNIT-DOSE CUP PO PRN (18:28)
[2018-01-07] MEDS ORDERED: MAGNESIUM CITRATE 300 ML BOTTLE PO PRN (18:28)
[2018-01-07] MEDS ORDERED: METHADONE HCL 10 MG TABLET (FOR DETOX USE ONLY) PO ONE ×2 (18:28→23:00)
[2018-01-07] MEDS ORDERED: guaiFENesin/D-METHORPHAN HB 10 ML UNIT-DOSE CUPS PO PRN (18:28)
[2018-01-07] MEDS ORDERED: ACETAMINOPHEN 325 MG TABLET (FP) PO PRN (18:28)
[2018-01-07] MEDS ORDERED: LOPERAMIDE HCL 2 MG CAPSULE PO PRN (18:28)
[2018-01-07] MEDS ORDERED: P-EPHED 60MG/TRIPROLIDI 2.5MG TABLET PO PRN (18:28)
[2018-01-07] MEDS ORDERED: COLLOIDAL OATMEAL 1 BAR EACH TP PRN (18:29)
[2018-01-07] MEDS ORDERED: ALBUTEROL SO4 8 GM HFA INHALER IH PRN (18:30)
[2018-01-07] MEDS: amLODIPine BESYLATE 10 MG TABLET (FP) PO SCH (19:27)
[2018-01-07] MEDS ORDERED: diphenhydrAMINE HCL 25 MG CAPSULE (FP) PO PRN (22:00)
[2018-01-07] MEDS ORDERED: MELATONIN 5 MG TABLETS PO PRN (22:00)
[2018-01-07] MEDS: THIAMINE HCL 100 MG TABLET (FP) PO SCH (22:24)
[2018-01-07] MEDS: diazePAM 5 MG TABLET PO PRN (22:24)
[2018-01-08 02:01] LABS: URINE APPEARANCE CLEAR; URINE BILIRUBIN NEGATIVE (<2.0 mg/dL); URINE COLOR DKYELLOW; URINE GLUCOSE (UA) 1+ (NEGATIVE); URINE KETONE NEGATIVE (NEGATIVE); URINE LEUK ESTERASE NEGATIVE (NEGATIVE); URINE NITRITE NEGATIVE (NEGATIVE); URINE PROTEIN NEGATIVE (NEGATIVE)
[2018-01-08] MEDS ORDERED: PRENATAL VITAMINS W/ FOLIC ACID TABLET (FP) PO SCH (10:00)
[2018-01-08] MEDS ORDERED: METHADONE HCL 10 MG TABLET (FOR DETOX USE ONLY) PO ONE (10:00)
--- NOTE | 2018-01-08 10:28 | EKG ---
Test Reason : Blood Pressure : / mmHG Vent. Rate : 092 BPM Atrial Rate : 092 BPM P-R Int : 136 ms QRS Dur : 076 ms QT Int : 348 ms P-R-T Axes : 066 041 052 degrees QTc Int : 430 ms NORMAL SINUS RHYTHM WITH SINUS ARRHYTHMIA MODERATE VOLTAGE CRITERIA FOR LVH, MAY BE NORMAL VARIANT BORDERLINE ECG WHEN COMPARED WITH ECG OF 23-OCT-2017 18:43, NO SIGNIFICANT CHANGE WAS FOUND Confirmed by KAYA HUFFMAN, LARISSA ([id number]) on 01/08/2018 10:28:31 AM Referred By: Confirmed By:LARISSA KIRKPATRICK MD
[2018-01-08 10:56] LABS: HEMATOCRIT 42.7 % (35.4-49); HEMOGLOBIN 13.6 GM/dL (11.7-16.9); MCH 25.3 pg (25.7-33.7); MCHC 31.8 g/dl (32.0-35.9); MEAN CELL VOLUME 79.6 fl (80-96); MEAN PLT VOLUME 10.9 fl (7.5-11.1); PLATELET COUNT 171 K/MM3 (134-434); RBC 5.37 M/mm3 (4.00-5.60); RDW 16.3 % (11.9-15.9); WHITE BLOOD COUNT 9.5 K/mm3 (4.0-10.0)
[2018-01-08 11:09] LABS: CHLORIDE 104 mmol/L (98-107); SODIUM 137 mmol/L (136-145)
[2018-01-08 11:18] LABS: ALBUMIN 2.9 g/dl (3.4-5.0); ALK PHOS 248 U/L (45-117); ANION GAP 8 MMOL/L (8-16); BILIRUBIN,TOTAL 0.4 mg/dL (0.2-1.0); BLOOD UREA NITROGEN 20 mg/dL (7-18); CO2 25 mmol/L (21-32); CREATININE 0.7 mg/dL (0.7-1.3); GLUCOSE,RANDOM 281 mg/dL (74-106); SGPT/ALT 123 U/L (12-78); TOT PROT 7.1 g/dl (6.4-8.2)
[2018-01-08 11:29] LABS: POTASSIUM 4.2 mmol/L (3.5-5.1); SGOT/AST 123 U/L (15-37)
--- NOTE | 2018-01-08 11:38 | PN ---
BHS COWS - Scale Resting Pulse: 1= SC 81-100 Sweatin= Chills/Flushing Restless Observation: 3= Extraneous Movement Pupil Size: 1= Pupils >than Normal Bone or Joint Aches: 2= Severe Diffuse Aches Runny Nose/ Eye Tearin= Runny Nose/Eyes GI Upset > 30mins: 2= Nausea/Diarrhea Tremor Observation of Outstretched Hands: 2= Slight Tremor Visible Yawning Observation: 2= >3x During Session Anxiety or Irritability: 2=Irritable/Anxious Goose Flesh Skin: 0=Smooth Skin COWS Score: 18 BHS Progress Note (SOAP) Subjective: alert,irritable,anxious,tremor,pain in the body and back Objective: 01/08/18 11:34 Vital Signs Temperature 9.8 F L 01/08/18 11:22 Pulse Rate 91 H 01/08/18 11:22 Respiratory Rate 18 01/08/18 11:22 Blood Pressure 136/79 01/08/18 11:22 O2 Sat by Pulse Oximetry (%) ekg nsr with sinus arrhythmia,lvh qt/qtc 348/430 Laboratory Last Values WBC 9.5 K/mm3 (4.0-10.0) 01/08/18 07:13 RBC 5.37 M/mm3 (4.00-5.60) 01/08/18 07:13 Hgb 13.6 GM/dL (11.7-16.9) 01/08/18 07:13 Hct 42.7 % (35.4-49) 01/08/18 07:13 MCV 79.6 fl (80-96) L 01/08/18 07:13 MCH 25.3 pg (25.7-33.7) L 01/08/18 07:13 MCHC 31.8 g/dl (32.0-35.9) L 01/08/18 07:13 RDW 16.3 % (11.9-15.9) H 01/08/18 07:13 Plt Count 171 K/MM3 (134-434) D 01/08/18 07:13 MPV 10.9 fl (7.5-11.1) 01/08/18 07:13 Sodium 137 mmol/L (136-145) 01/08/18 07:13 Potassium 4.2 mmol/L (3.5-5.1) 01/08/18 07:13 Chloride 104 mmol/L (98-107) 01/08/18 07:13 Carbon Dioxide 25 mmol/L (21-32) 01/08/18 07:13 Anion Gap 8 MMOL/L (8-16) 01/08/18 07:13 BUN 20 mg/dL (7-18) H 01/08/18 07:13 Creatinine 0.7 mg/dL (0.7-1.3) 01/08/18 07:13 Creat Clearance w eGFR > 60 (>60) 01/08/18 07:13 Random Glucose 281 mg/dL (74-106) H 01/08/18 07:13 Calcium 8.0 mg/dL (8.5-10.1) L 01/08/18 07:13 Total Bilirubin 0.4 mg/dL (0.2-1.0) 01/08/18 07:13 AST 123 U/L (15-37) H D 01/08/18 07:13 ALT 123 U/L (12-78) H 01/08/18 07:13 Alkaline Phosphatase 248 U/L (45-117) H 01/08/18 07:13 Total Protein 7.1 g/dl (6.4-8.2) 01/08/18 07:13 Albumin 2.9 g/dl (3.4-5.0) L 01/08/18 07:13 Urine Color Dkyellow 01/08/18 00:45 Urine Appearance Clear 01/08/18 00:45 Urine pH 6.0 (5.0-8.0) 01/08/18 00:45 Ur Specific [place] 1.023 (1.001-1.035) 01/08/18 00:45 Urine Protein Negative (NEGATIVE) 01/08/18 00:45 Urine Glucose (UA) 1+ (NEGATIVE) H 01/08/18 00:45 Urine Ketones Negative (NEGATIVE) 01/08/18 00:45 Urine Blood Negative (NEGATIVE) 01/08/18 00:45 Urine Nitrite Negative (NEGATIVE) 01/08/18 00:45 Urine Bilirubin Negative (<2.0 mg/dL) 01/08/18 00:45 Urine Urobilinogen 2.0 mg/dL (0.2-1.0) 01/08/18 00:45 Ur Leukocyte Esterase Negative (NEGATIVE) 01/08/18 00:45 Assessment: 01/08/18 11:37 withdrawal symptom Plan: continue detox,glucose 281,ast 123,[id number],d/c tylenol,fasting glucose,bgm monitoring,repeat cmp,inr in am
[2018-01-08] MEDS: amLODIPine BESYLATE 10 MG TABLET (FP) PO SCH (12:03)
[2018-01-08] MEDS: diazePAM 5 MG TABLET PO PRN (22:09)
[2018-01-08] MEDS: THIAMINE HCL 100 MG TABLET (FP) PO SCH (22:09)
[2018-01-09 09:16] VITALS: BP 141/97; PULSE 116; TEMP 97.9
[2018-01-09] MEDS ORDERED: METHADONE HCL 5 MG TABLET (FOR DETOX USE ONLY) PO ONE (10:00)
[2018-01-09 10:07] LABS: INR 0.95 (0.83-1.09); PROTHROMBIN TIME (PATIENT) 10.7 SEC (9.7-13.0)
[2018-01-09 10:22] LABS: CHLORIDE 103 mmol/L (98-107); POTASSIUM 4.1 mmol/L (3.5-5.1); SODIUM 137 mmol/L (136-145)
[2018-01-09 10:49] LABS: ALBUMIN 2.7 g/dl (3.4-5.0); ALK PHOS 200 U/L (45-117); ANION GAP 8 MMOL/L (8-16); BILIRUBIN,TOTAL 0.5 mg/dL (0.2-1.0); BLOOD UREA NITROGEN 19 mg/dL (7-18); CALCIUM 8.2 mg/dL (8.5-10.1); CO2 26 mmol/L (21-32); CREATININE 0.8 mg/dL (0.7-1.3); GLUCOSE,RANDOM 228 mg/dL (74-106); SGOT/AST 136 U/L (15-37); SGPT/ALT 130 U/L (12-78); TOT PROT 6.7 g/dl (6.4-8.2)
--- NOTE | 2018-01-09 11:30 | DS ---
[facility] Detox Discharge Summary Admission Date: 01/07/18 Discharge Date: 01/09/18 - History Present History: Opioid Dependence Additional Comments: patient insists to leave the detox facility states that he wants to go to [facility] rehab patient agrees to call [facility] one day next week for appointment discussed smoking cessation and low carbohydrate diet - Physical Exam Results Vital Signs: Vital Signs Temperature 97.9 F 01/09/18 09:15 Pulse Rate 116 H 01/09/18 09:15 Respiratory Rate 18 01/09/18 09:15 Blood Pressure 141/97 01/09/18 09:15 O2 Sat by Pulse Oximetry (%) Pertinent Admission Physical Exam Findings: opiate withdrawal sx Vital Signs Temperature 97.9 F 01/09/18 09:15 Pulse Rate 116 H 01/09/18 09:15 Respiratory Rate 18 01/09/18 09:15 Blood Pressure 141/97 01/09/18 09:15 O2 Sat by Pulse Oximetry (%) Laboratory Last Values WBC 9.5 K/mm3 (4.0-10.0) 01/08/18 07:13 RBC 5.37 M/mm3 (4.00-5.60) 01/08/18 07:13 Hgb 13.6 GM/dL (11.7-16.9) 01/08/18 07:13 Hct 42.7 % (35.4-49) 01/08/18 07:13 MCV 79.6 fl (80-96) L 01/08/18 07:13 MCH 25.3 pg (25.7-33.7) L 01/08/18 07:13 MCHC 31.8 g/dl (32.0-35.9) L 01/08/18 07:13 RDW 16.3 % (11.9-15.9) H 01/08/18 07:13 Plt Count 171 K/MM3 (134-434) D 01/08/18 07:13 MPV 10.9 fl (7.5-11.1) 01/08/18 07:13 PT with INR 10.70 SEC (9.7-13.0) 01/09/18 07:40 INR 0.95 (0.83-1.09) 01/09/18 07:40 Sodium 137 mmol/L (136-145) 01/09/18 07:40 Potassium 4.1 mmol/L (3.5-5.1) 01/09/18 07:40 Chloride 103 mmol/L (98-107) 01/09/18 07:40 Carbon Dioxide 26 mmol/L (21-32) 01/09/18 07:40 Anion Gap 8 MMOL/L (8-16) 01/09/18 07:40 BUN 19 mg/dL (7-18) H 01/09/18 07:40 Creatinine 0.8 mg/dL (0.7-1.3) 01/09/18 07:40 Creat Clearance w eGFR > 60 (>60) 01/09/18 07:40 POC Glucometer 220 UNITS (80-120) 01/09/18 07:31 Random Glucose 228 mg/dL (74-106) H 01/09/18 07:40 Calcium 8.2 mg/dL (8.5-10.1) L 01/09/18 07:40 Total Bilirubin 0.5 mg/dL (0.2-1.0) 01/09/18 07:40 AST 136 U/L (15-37) H 01/09/18 07:40 ALT 130 U/L (12-78) H 01/09/18 07:40 Alkaline Phosphatase 200 U/L (45-117) H D 01/09/18 07:40 Total Protein 6.7 g/dl (6.4-8.2) 01/09/18 07:40 Albumin 2.7 g/dl (3.4-5.0) L 01/09/18 07:40 Urine Color Dkyellow 01/08/18 00:45 Urine Appearance Clear 01/08/18 00:45 Urine pH 6.0 (5.0-8.0) 01/08/18 00:45 Ur Specific [place] 1.023 (1.001-1.035) 01/08/18 00:45 Urine Protein Negative (NEGATIVE) 01/08/18 00:45 Urine Glucose (UA) 1+ (NEGATIVE) H 01/08/18 00:45 Urine Ketones Negative (NEGATIVE) 01/08/18 00:45 Urine Blood Negative (NEGATIVE) 01/08/18 00:45 Urine Nitrite Negative (NEGATIVE) 01/08/18 00:45 Urine Bilirubin Negative (<2.0 mg/dL) 01/08/18 00:45 Urine Urobilinogen 2.0 mg/dL (0.2-1.0) 01/08/18 00:45 Ur Leukocyte Esterase Negative (NEGATIVE) 01/08/18 00:45 RPR Titer Nonreactive (NONREACTIVE) 01/08/18 07:13 lab noted health teaching on opiate misuse related hepatitc renal as well as endocran system - Treatment Hospital Course: Detox Protocol Followed, Responded well Patient has Accepted a Rehab Referral to: [facility] - Medication Discharge Medications: Ambulatory Orders Albuterol Sulfate Inhaler - [Ventolin HFA Inhaler -] 2 inh PO Q4H PRN #1 inhaler 10/27/17 Amlodipine Besylate [Norvasc -] 10 mg PO DAILY #30 tablet 10/27/17 - Diagnosis (1) Opioid dependence with withdrawal Status: Acute (2) Hypertension Status: Chronic Qualifiers: Hypertension type: essential hypertension Qualified Code(s): I10 - Essential (primary) hypertension (3) Asthma Status: Chronic Qualifiers: Asthma severity: mild Asthma persistence: intermittent Asthma complication type: with status asthmaticus Qualified Code(s): J45.22 - Mild intermittent asthma with status asthmaticus (4) COPD (chronic obstructive pulmonary disease) Status: Chronic Qualifiers: COPD type: emphysema Emphysema type: unspecified Qualified Code(s): J43.9 - Emphysema, unspecified (5) Chronic tachycardia Status: Chronic - AMA Did Patient Leave Against Medical Advice: Yes
[2018-01-10] MEDS ORDERED: METHADONE HCL 5 MG TABLET (FOR DETOX USE ONLY) PO ONE (10:00)
[2018-01-11] MEDS ORDERED: METHADONE HCL 10 MG TABLET (FOR DETOX USE ONLY) PO ONE (10:00)
[2018-01-12] MEDS ORDERED: METHADONE HCL 5 MG TABLET (FOR DETOX USE ONLY) PO ONE (06:00)
== END 2018-01-09 09:26 | disposition left against medical advice (07) | DRG 770 ==
LOC: YASAS 11:27 → Y6N 17:57
PROC: HZ2ZZZZ Detoxification Services for Substance Abuse Treatment (ICD-10-PCS; principal; 2018-01-07)
DX: F11.23 Opioid dependence with withdrawal (principal); F14.23 Cocaine dependence with withdrawal; I10 Essential (primary) hypertension; J45.22 Mild intermittent asthma with status asthmaticus; J43.9 Emphysema, unspecified; R00.0 Tachycardia, unspecified; B18.2 Chronic viral hepatitis C; G51.0 Bell's palsy; H52.12 Myopia, left eye; R73.9 Hyperglycemia, unspecified; Z96.641 Presence of right artificial hip joint; Z87.891 Personal history of nicotine dependence; Z86.19 Personal history of other infectious and parasitic diseases
CPT/HCPCS: 36415; 80053; 81003; 82962; 85027; 85610; 86593; 93005; 93010

== ENCOUNTER 2018-02-26 14:12 | Inpatient (IN) | payer OTHER ==
[2018-02-26 17:13] VITALS: BMI 27.6
--- NOTE | 2018-02-26 19:09 | HP ---
COWS - Scale Resting Pulse: 2= [place] 101-120 Sweatin= Chills/Flushing Restless Observation: 1= Difficult to Sit Still Pupil Size: 1= Pupils >than Normal Bone or Joint Aches: 4=Acute Joint/Muscle Pain Runny Nose/ Eye Tearin= None GI Upset > 30mins: 0= None Tremor Observation: 0= None Yawning Observation: 1= 1-2x During Session Anxiety or Irritability: 2=Irritable/Anxious Goose Flesh Skin: 0=Smooth Skin COWS Score: 12 CIWA Score - CIWA Score Nausea/Vomitin-No Nausea/No Vomiting Muscle Tremors: None Anxiety: 2 Agitation: 0-Normal Activity Paroxysmal Sweats: No Perspiration Orientation: 0-Oriented Tacttile Disturbances: 0-None Auditory Disturbances: 0-None Visual Disturbances: 2-Mild Sensitivity Headache: 6-Very Severe CIWA-Ar Total Score: 10 Admission ROS BHS - HPI Allergies/Adverse Reactions: Allergies Allergy/AdvReac Type Severity Reaction Status Date / Time Penicillins Allergy Severe Difficulty Verified 02/26/18 17:52 Breathing tomato [Tomato] Allergy Severe Hives Verified 02/26/18 17:52 pasta Allergy Severe Hives Uncoded 02/26/18 17:52 History of Present Illness: pt here requesting detox from opiates and alcohol use , reports 6-8 pills of oxycodone ivdu in [place] , needles from the store, denies sharing or re- using , reports x 30 years use , prior detox at this facility , latest use this morning , current symptoms as reported on COWS . ETOH use : 1 pint every other day , denies withdrawal symptoms , denies seizures, blackouts , tremors , + fall while intoxicated 2 days ago, denies injury . PMHx: asthma pshx : total r thr 06/12 steroid abuse psych : denies meds : denies allergies : as above . tobacco : denies utox + camilla , oxy cocaine : 50 $ / day Exam Limitations: No Limitations - Ebola screening Have you traveled outside of the country in the last 21 days: No Have you had contact with anyone from an Ebola affected area: No Have you been sick,other than usual withdrawal symptoms: No Do you have a fever: No - Review of Systems Constitutional: See HPI EENT: reports: See HPI, Other (reports difficulty reading at distance , does not have glasses) Respiratory: reports: Cough, Other (reprots cough x 2 days , reports yellowish sputum) Cardiac: reports: No Symptoms Reported GI: reports: No Symptoms Reported : reports: No Symptoms Reported Integumentary: reports: No Symptoms Reported Neuro: reports: Headache Endocrine: reports: No Symptoms Reported Hematology: reports: No Symptoms Reported Psychiatric: reports: Judgement Intact, Mood/Affect Appropiate, Orientated x3 Patient History - Patient Medical History Hx Anemia: No Hx Asthma: Yes (ON PUMP) Hx Chronic Obstructive Pulmonary Disease (COPD): Yes Hx Cancer: No Hx Cardiac Disorders: No Hx Congestive Heart Failure: No Hx Hypertension: Yes (not on meds) Hx Hypercholesterolemia: No Hx Pacemaker: No HX Cerebrovascular Accident: No Hx Seizures: No Hx Dementia: No Hx Diabetes: No Hx Gastrointestinal Disorders: No Hx Liver Disease: Yes (HEP B (TREATED)) Hx Genitourinary Disorders: No Hx Sexually Transmitted Disorders: Yes (GONORRHEA 1993) Hx Renal Disease (ESRD): No Hx Thyroid Disease: No Hx Human Immunodeficiency Virus (HIV): No Hx Hepatitis C: Yes (not treated) Hx Depression: No Hx Suicide Attempt: No Hx Bipolar Disorder: No Hx Schizophrenia: No - Patient Surgical History Past Surgical History: Yes Hx Neurologic Surgery: No Hx Cataract Extraction: No Hx Cardiac Surgery: No Hx Lung Surgery: No Hx Breast Surgery: No Hx Breast Biopsy: No Hx Abdominal Surgery: No Hx Appendectomy: Yes (1973) Hx Cholecystectomy: No Hx Genitourinary Surgery: No Hx Section: No Hx Orthopedic Surgery: Yes (right wrist fx repair 1973; right hip replacement in 07/2009) Hx Hysterectomy: No Other Surgical History: left mandible in 1988 Anesthesia Reaction: No - PPD History Results: CXR(-)10/2017 - Smoking Cessation Smoking history: Former smoker Have you smoked in the past 12 months: No Aproximately how many cigarettes per day: 2 If you are a former smoker, when did you quit?: 12/2015 Cigars Per Day: 0 Hx Chewing Tobacco Use: No Initiated information on smoking cessation: No - Substances Abused Alcohol Route: Oral Frequency: Daily Amount used: 1/2 GALLON VODKA Age of first use: 14 Date of Last Use: 02/26/18 Crack Route: Smoking Frequency: Daily Amount used: $15-100 Age of first use: 28 Date of Last Use: 02/26/18 Oxycontin Route: Injection Frequency: Daily Amount used: 8-9 5MG PILLS Age of first use: 30 Date of Last Use: 02/26/18 Family Disease History - Family Disease History Family Disease History: CA: Mother (breast), Other: Father (chronic alcoholism ) Admission Physical Exam [facility] - Vital Signs Vital Signs: Vital Signs - 24 hr 02/26/18 17:11 Temperature 99.1 F Pulse Rate 102 H Respiratory 18 Rate Blood Pressure 113/75 - Physical General Appearance: Yes: Mild Distress HEENTM: Yes: EOMI, Normal ENT Inspection, Normocephalic Respiratory: Yes: Chest Non-Tender, Decreased Breath Sounds Neck: Yes: No masses,lesions,Nodules Breast: Yes: Breast Exam Deferred Cardiology: Yes: Regular Rhythm, Regular Rate, Tachycardia Abdominal: Yes: Normal Bowel Sounds, Soft, Protuberent Genitourinary: Yes: Within Normal Limits Back: Yes: Normal Inspection Musculoskeletal: Yes: full range of Motion, Gait Steady Extremities: Yes: Normal Capillary Refill, Normal Inspection, Normal Range of Motion, Non-Tender Neurological: Yes: Within Normal Limits, Fully Oriented, Alert, Motor Strength 5 /5, Normal Mood/Affect Integumentary: Yes: Normal Color, Dry, Warm Lymphatic: Yes: Within Normal Limits - Diagnostic (1) Alcohol dependence with uncomplicated withdrawal Current Visit: No Status: Acute (2) Cocaine dependence with withdrawal Current Visit: No Status: Acute (3) Opioid dependence with withdrawal Current Visit: No Status: Acute S Breath Alcohol Content Breath Alcohol Content: 0 Urine Drug Screen - Results Drug Screen Negative: No Urine Drug Screen Results: CAMILLA-Cocaine, OXY-Oxycodone
[2018-02-26] MEDS ORDERED: P-EPHED 60MG/TRIPROLIDI 2.5MG TABLET PO PRN (19:18)
[2018-02-26] MEDS ORDERED: LOPERAMIDE HCL 2 MG CAPSULE PO PRN (19:18)
[2018-02-26] MEDS ORDERED: MAGNESIUM HYDROX 2400MG/30ML ORAL SUSPENSION 30 ML CUP PO PRN (19:18)
[2018-02-26] MEDS ORDERED: MAGNESIUM CITRATE 300 ML BOTTLE PO PRN (19:18)
[2018-02-26] MEDS ORDERED: MAG HYDROX/AL HYDROX/SIMETH 30 ML UNIT-DOSE CUP PO PRN (19:18)
[2018-02-26] MEDS ORDERED: METHADONE HCL 10 MG TABLET (FOR DETOX USE ONLY) PO ONE ×2 (19:18→23:00)
[2018-02-26] MEDS ORDERED: guaiFENesin/D-METHORPHAN HB 10 ML UNIT-DOSE CUPS PO PRN (19:18)
[2018-02-26] MEDS ORDERED: ACETAMINOPHEN 325 MG TABLET (FP) PO PRN (19:18)
[2018-02-26] MEDS ORDERED: diazePAM 5 MG TABLET PO ONE (19:18)
[2018-02-26] MEDS ORDERED: MENTHOL/PHENOL 1 EACH UD MM PRN (19:18)
[2018-02-26] MEDS ORDERED: ALBUTEROL SO4 0.083% IH SOL 2.5 MG/3 ML VIAL.NEB. NEB PRN (19:20)
[2018-02-26] MEDS ORDERED: MELATONIN 5 MG TABLETS PO PRN (22:00)
[2018-02-26] MEDS: diazePAM 5 MG TABLET PO SCH (22:11)
[2018-02-26] MEDS: THIAMINE HCL 100 MG TABLET (FP) PO SCH (22:11)
[2018-02-27] MEDS: diazePAM 5 MG TABLET PO SCH ×3 (05:48→22:08)
[2018-02-27] MEDS: diazePAM 5 MG TABLET PO PRN (09:18)
[2018-02-27] MEDS ORDERED: METHADONE HCL 10 MG TABLET (FOR DETOX USE ONLY) PO SCH (10:00)
[2018-02-27] MEDS: PRENATAL VITAMINS W/ FOLIC ACID TABLET (FP) PO SCH (10:14)
[2018-02-27 10:41] LABS: URINE APPEARANCE CLEAR; URINE BILIRUBIN NEGATIVE (<2.0 mg/dL); URINE COLOR LTYELLOW; URINE GLUCOSE (UA) 3+ (NEGATIVE); URINE KETONE NEGATIVE (NEGATIVE); URINE LEUK ESTERASE NEGATIVE (NEGATIVE); URINE NITRITE NEGATIVE (NEGATIVE); URINE PROTEIN NEGATIVE (NEGATIVE); URINE UROBILINOGEN NEGATIVE mg/dL (0.2-1.0)
[2018-02-27 11:00] LABS: HEMATOCRIT 40.2 % (35.4-49); HEMOGLOBIN 12.5 GM/dL (11.7-16.9); MCH 24.3 pg (25.7-33.7); MEAN CELL VOLUME 78.4 fl (80-96); MEAN PLT VOLUME 10.2 fl (7.5-11.1); PLATELET COUNT 152 K/MM3 (134-434); RBC 5.13 M/mm3 (4.00-5.60); RDW 16.3 % (11.9-15.9); WHITE BLOOD COUNT 5.8 K/mm3 (4.0-10.0)
[2018-02-27 11:14] LABS: ALBUMIN 2.8 g/dl (3.4-5.0); ALK PHOS 271 U/L (45-117); ANION GAP 8 MMOL/L (8-16); BILIRUBIN,TOTAL 0.5 mg/dL (0.2-1); BLOOD UREA NITROGEN 20 mg/dL (7-18); CALCIUM 8.1 mg/dL (8.5-10.1); CHLORIDE 99 mmol/L (98-107); CO2 29 mmol/L (21-32); CREATININE 0.8 mg/dL (0.55-1.3); GLUCOSE,RANDOM 289 mg/dL (74-106); POTASSIUM 4.1 mmol/L (3.5-5.1); SGOT/AST 124 U/L (15-37); SGPT/ALT 130 U/L (13-61); SODIUM 136 mmol/L (136-145); TOT PROT 6.5 g/dl (6.4-8.2)
[2018-02-27] MEDS ORDERED: MINERAL OIL/PETROLAT/WATER TOPICAL CREAM 113 GM JAR TP PRN (11:23)
--- NOTE | 2018-02-27 11:30 | PN ---
[facility] CIWA - CIWA Score Nausea/Vomitin-No Nausea/No Vomiting Muscle Tremors: 2 Anxiety: 2 Agitation: 2 Paroxysmal Sweats: No Perspiration Orientation: 0-Oriented Tacttile Disturbances: 3-Moderate Itch/Numb/Burn Auditory Disturbances: 0-None Visual Disturbances: 0-None Headache: 0-None Present CIWA-Ar Total Score: 9 BHS COWS - Scale Resting Pulse: 1= [place] 81-100 Sweatin= No chills or Flushing Restless Observation: 1= Difficult to Sit Still Pupil Size: 1= Pupils >than Normal Bone or Joint Aches: 2= Severe Diffuse Aches Runny Nose/ Eye Tearin= None GI Upset > 30mins: 0= None Tremor Observation of Outstretched Hands: 2= Slight Tremor Visible Yawning Observation: 0= None Anxiety or Irritability: 2=Irritable/Anxious Goose Flesh Skin: 0=Smooth Skin COWS Score: 9 S Progress Note (SOAP) Subjective: PATIENT C/O RIGHT HIP PAIN AND BODY ACHES, SHAKES, ANXIETY AND RESTLESSNESS. Objective: 02/27/18 11:28 Vital Signs Temperature 98.1 F 02/27/18 09:46 Pulse Rate 106 H 02/27/18 09:46 Respiratory Rate 18 02/27/18 09:46 Blood Pressure 127/76 02/27/18 09:46 O2 Sat by Pulse Oximetry (%) Laboratory Tests 02/27/18 02/27/18 08:00 08:50 Sodium 136 Potassium 4.1 Chloride 99 Carbon Dioxide 29 Anion Gap 8 BUN 20 H Creatinine 0.8 Creat Clearance w eGFR > 60 Random Glucose 289 H Calcium 8.1 L Total Bilirubin 0.5 AST 124 H ALT 130 H Alkaline Phosphatase 271 H Total Protein 6.5 Albumin 2.8 L Urine Color Ltyellow Urine Appearance Clear Urine pH 7.0 Ur Specific [place] 1.027 Urine Protein Negative Urine Glucose (UA) 3+ H Urine Ketones Negative Urine Blood Negative Urine Nitrite Negative Urine Bilirubin Negative Urine Urobilinogen Negative Ur Leukocyte Esterase Negative PE: +DRY SKIN ALERT AND ORIENTED CAR S1S2 RESP CTA BL EXT +TREMORS, +RIGHT HIP PAIN- LEVEL 5/10 RADIATES TO RIGHT LEG Assessment: 02/27/18 11:29 ELEVATED LFTS WITHDRAWAL SYNDROME Plan: CONTINUE DETOX ADD FLEXERIL TO REGIMEN EUCERIN CREAM FOR DRY SKIN CONTINUE ORAL FLUIDS CHECK AMMONIA LEVEL.
--- NOTE | 2018-02-27 18:09 | EKG ---
Test Reason : Blood Pressure : / mmHG Vent. Rate : 098 BPM Atrial Rate : 098 BPM P-R Int : 134 ms QRS Dur : 078 ms QT Int : 342 ms P-R-T Axes : 062 027 038 degrees QTc Int : 436 ms NORMAL SINUS RHYTHM MINIMAL VOLTAGE CRITERIA FOR LVH, MAY BE NORMAL VARIANT BORDERLINE ECG WHEN COMPARED WITH ECG OF 07-JAN-2018 19:03, NO SIGNIFICANT CHANGE WAS FOUND Confirmed by BRANDEN HUFFMAN, JOAN ([id number]) on 02/27/2018 6:08:44 PM Referred By: Confirmed By:JOAN OTERO MD
[2018-02-27] MEDS: THIAMINE HCL 100 MG TABLET (FP) PO SCH (22:08)
[2018-02-28] MEDS: diazePAM 5 MG TABLET PO PRN (09:05)
[2018-02-28] MEDS: METHADONE HCL 5 MG TABLET (FOR DETOX USE ONLY) PO SCH (10:33)
[2018-02-28] MEDS: PRENATAL VITAMINS W/ FOLIC ACID TABLET (FP) PO SCH (10:33)
[2018-02-28] MEDS: diazePAM 5 MG TABLET PO SCH ×2 (10:33→22:38)
--- NOTE | 2018-02-28 13:17 | PN ---
[facility] CIWA - CIWA Score Nausea/Vomitin Muscle Tremors: 3 Anxiety: 3 Agitation: 3 Paroxysmal Sweats: 3 Orientation: 0-Oriented Tacttile Disturbances: 0-None Auditory Disturbances: 0-None Visual Disturbances: 0-None Headache: 1-Very Mild CIWA-Ar Total Score: 15 [facility] COWS - Scale Resting Pulse: 0= FL 80 or Below Sweatin= Chills/Flushing Restless Observation: 3= Extraneous Movement Pupil Size: 1= Pupils >than Normal Bone or Joint Aches: 2= Severe Diffuse Aches Runny Nose/ Eye Tearin= Runny Nose/Eyes GI Upset > 30mins: 1= Stomach Cramp Tremor Observation of Outstretched Hands: 2= Slight Tremor Visible Yawning Observation: 0= None Anxiety or Irritability: 2=Irritable/Anxious Goose Flesh Skin: 0=Smooth Skin COWS Score: 14 [facility] Progress Note (SOAP) Subjective: Tremor, chills, sweating, interrupted sleep Objective: 02/28/18 13:11 Last Vital Signs Temp Pulse Resp BP Pulse Ox 97.3 F L 72 18 139/83 02/28/18 09:26 02/28/18 09:26 02/28/18 09:26 02/28/18 09:26 Laboratory Tests 02/27/18 02/27/18 02/27/18 08:00 08:00 08:00 WBC 5.8 RBC 5.13 Hgb 12.5 Hct 40.2 MCV 78.4 L MCH 24.3 L MCHC 31.0 L RDW 16.3 H Plt Count 152 MPV 10.2 Sodium 136 Potassium 4.1 Chloride 99 Carbon Dioxide 29 Anion Gap 8 BUN 20 H Creatinine 0.8 Creat Clearance w eGFR > 60 Random Glucose 289 H Calcium 8.1 L Total Bilirubin 0.5 AST 124 H ALT 130 H Alkaline Phosphatase 271 H Ammonia Total Protein 6.5 Albumin 2.8 L Urine Color Urine Appearance Urine pH Ur Specific [place] Urine Protein Urine Glucose (UA) Urine Ketones Urine Blood Urine Nitrite Urine Bilirubin Urine Urobilinogen Ur Leukocyte Esterase RPR Titer Nonreactive 02/27/18 02/28/18 08:50 07:30 WBC RBC Hgb Hct MCV MCH MCHC RDW Plt Count MPV Sodium Potassium Chloride Carbon Dioxide Anion Gap BUN Creatinine Creat Clearance w eGFR Random Glucose Calcium Total Bilirubin AST ALT Alkaline Phosphatase Ammonia 130.13 H Total Protein Albumin Urine Color Ltyellow Urine Appearance Clear Urine pH 7.0 Ur Specific [place] 1.027 Urine Protein Negative Urine Glucose (UA) 3+ H Urine Ketones Negative Urine Blood Negative Urine Nitrite Negative Urine Bilirubin Negative Urine Urobilinogen Negative Ur Leukocyte Esterase Negative RPR Titer Labs reviewed: bun 20, elevated LFTs (AST, ALT, Alk phos), serum glucose 289, ammonia level 130.13; UA 3+ glucose Assessment: 02/28/18 13:17 Withdrawal symptoms Noted with azotemia, hyperglycemia, elevated LFTs, hyperammonemia and glycosuria Plan: Continue detox Azotemia: encouraged PO water intake for hydration Hyperglycemia: most likely due to DM, start diabetic diet (diabetic/low sodium) , start finger stick and insulin sliding scale with coverage, random finger stick x 1 now, consider initiating PO antidiabetic regimen if warranted, repeat fasting glucose, send HbA1c Elevated LFTs: most likely due to alcohol dependence, repeat AST, ALT, Alkaline phosphatase in AM Hyperammonemia: start lactulose 30ml PO TID, repeat ammonia level in AM Glycosuria: most likely due to DM, repeat UA in 2 days
[2018-02-28] MEDS: LACTULOSE 20 GM/30 ML UDC (FOR ORAL USE ONLY) PO SCH ×3 (15:46→22:44)
[2018-02-28] MEDS: INSULIN SLIDING SCALE (NOVOLOG) 1 VIAL SQ SCH (17:30)
[2018-02-28] MEDS: THIAMINE HCL 100 MG TABLET (FP) PO SCH (22:38)
[2018-02-28] MEDS: CYCLOBENZAPRINE HCL 10 MG TABLET (FP) PO PRN (22:41)
[2018-02-28] MEDS: IBUPROFEN 400 MG TABLET (FP) PO PRN (22:41)
[2018-03-01] MEDS: LACTULOSE 20 GM/30 ML UDC (FOR ORAL USE ONLY) PO SCH ×3 (06:22→22:26)
[2018-03-01] MEDS: INSULIN SLIDING SCALE (NOVOLOG) 1 VIAL SQ SCH ×3 (06:22→16:42)
[2018-03-01] MEDS ORDERED: TRIMETHOBENZAMIDE HCL 200MG/2ML INJ IM ONE (10:21)
--- NOTE | 2018-03-01 10:25 | PN ---
[facility] Progress Note (SOAP) Subjective: sweats sleep disturbance Vomitting not feeling well Objective: 03/01/18 10:23 In bed A & O x 3 Vital Signs Temperature 96.1 F L 03/01/18 10:00 Pulse Rate 91 H 03/01/18 10:00 Respiratory Rate 18 03/01/18 10:00 Blood Pressure 137/84 03/01/18 10:00 O2 Sat by Pulse Oximetry (%) Assessment: 03/01/18 10:24 withdrawal sx Plan: tigan for vomiting continue detox increase po hydration when able to tolerate
[2018-03-01] MEDS ORDERED: ONDANSETRON *ODT* 4 MG TABLET SL ONE (13:00)
[2018-03-01] MEDS: IBUPROFEN 400 MG TABLET (FP) PO PRN ×2 (13:06→22:13)
[2018-03-01] MEDS: diazePAM 5 MG TABLET PO SCH ×2 (14:43→22:13)
[2018-03-01] MEDS: METHADONE HCL 5 MG TABLET (FOR DETOX USE ONLY) PO SCH (14:44)
[2018-03-01] MEDS: PRENATAL VITAMINS W/ FOLIC ACID TABLET (FP) PO SCH (14:45)
--- NOTE | 2018-03-01 18:33 | PN ---
[facility] Progress Note (SOAP) Subjective: C/o chest pain which increases when takes a deep breath. States has COPD. States feverish earlier today. C/o generalized body aches. Objective: Alert and oriented. Lungs brionna inspi/exp wheeze throughout. No rales/crackles. O2 Sat = 97% Vital Signs 03/01/18 03/01/18 03/01/18 14:11 14:55 17:11 Temperature 102.7 F H 100.5 F H 100.0 F H Pulse Rate 117 H 104 H Respiratory 18 18 Rate Blood Pressure 125/83 111/79 03/01/18 17:12 Temperature 99.0 F Pulse Rate 92 H Respiratory 18 Rate Blood Pressure 113/76 EKG - reviewed BGM - refused CMP Sodium 136 mmol/L (136-145) 02/27/18 08:00 Potassium 4.1 mmol/L (3.5-5.1) 02/27/18 08:00 Chloride 99 mmol/L (98-107) 02/27/18 08:00 Carbon Dioxide 29 mmol/L (21-32) 02/27/18 08:00 Anion Gap 8 MMOL/L (8-16) 02/27/18 08:00 BUN 20 mg/dL (7-18) H 02/27/18 08:00 Creatinine 0.8 mg/dL (0.55-1.3) 02/27/18 08:00 Creat Clearance w eGFR > 60 (>60) 02/27/18 08:00 Random Glucose 289 mg/dL (74-106) H 02/27/18 08:00 Calcium 8.1 mg/dL (8.5-10.1) L 02/27/18 08:00 Total Bilirubin 0.5 mg/dL (0.2-1) 02/27/18 08:00 AST 124 U/L (15-37) H 02/27/18 08:00 ALT 130 U/L (13-61) H 02/27/18 08:00 Alkaline Phosphatase 271 U/L (45-117) H 02/27/18 08:00 Ammonia 130.13 umol/L (11-32) H 02/28/18 07:30 Total Protein 6.5 g/dl (6.4-8.2) 02/27/18 08:00 Albumin 2.8 g/dl (3.4-5.0) L 02/27/18 08:00 Labs reviewed. Assessment: COPD- Asthma exacerbation Opiate and alcohol withdrawal. Hyperglycemia Elevated Serum Ammonia levels Plan: Albuterol neb treatment Cough meds Continue detox Encourage compliance w/ treatment regimen.
[2018-03-01] MEDS: THIAMINE HCL 100 MG TABLET (FP) PO SCH (22:13)
[2018-03-01] MEDS: CYCLOBENZAPRINE HCL 10 MG TABLET (FP) PO PRN (22:14)
[2018-03-01] MEDS ORDERED: guaiFENesin 200 MG/10 ML 10 ML UNIT-DOSE CUPS PO PRN (22:31)
[2018-03-01] MEDS ORDERED: LACTULOSE 20 GM/30 ML UDC (FOR ORAL USE ONLY) PO ONE (23:25)
[2018-03-02] MEDS: INSULIN SLIDING SCALE (NOVOLOG) 1 VIAL SQ SCH ×3 (06:43→18:24)
[2018-03-02] MEDS: LACTULOSE 20 GM/30 ML UDC (FOR ORAL USE ONLY) PO SCH ×3 (06:43→22:23)
[2018-03-02] MEDS ORDERED: METHADONE HCL 10 MG TABLET (FOR DETOX USE ONLY) PO SCH (10:00)
[2018-03-02] MEDS ORDERED: diazePAM 5 MG TABLET PO SCH (10:00)
[2018-03-02] MEDS: PRENATAL VITAMINS W/ FOLIC ACID TABLET (FP) PO SCH (10:28)
--- NOTE | 2018-03-02 11:14 | PN ---
[facility] Progress Note Note: PATIENT CONTINUES WITH DETOX REGIMEN. PATIENT ANXIOUS/IRRITABLE AT TIMES. REFUSING BGM DESPITE EDUCATING REGARGDING RISKS FACTORS WITH NONCOMPLIANCE. Vital Signs Temperature 98.4 F 03/02/18 09:34 Pulse Rate 97 H 03/02/18 09:34 Respiratory Rate 17 03/02/18 09:34 Blood Pressure 120/75 03/02/18 09:34 O2 Sat by Pulse Oximetry (%) Laboratory Tests 02/27/18 02/27/18 02/27/18 08:00 08:00 08:00 WBC 5.8 RBC 5.13 Hgb 12.5 Hct 40.2 MCV 78.4 L MCH 24.3 L MCHC 31.0 L RDW 16.3 H Plt Count 152 MPV 10.2 Sodium 136 Potassium 4.1 Chloride 99 Carbon Dioxide 29 Anion Gap 8 BUN 20 H Creatinine 0.8 Creat Clearance w eGFR > 60 Random Glucose 289 H Calcium 8.1 L Total Bilirubin 0.5 AST 124 H ALT 130 H Alkaline Phosphatase 271 H Ammonia Total Protein 6.5 Albumin 2.8 L Urine Color Urine Appearance Urine pH Ur Specific [place] Urine Protein Urine Glucose (UA) Urine Ketones Urine Blood Urine Nitrite Urine Bilirubin Urine Urobilinogen Ur Leukocyte Esterase RPR Titer Nonreactive 02/27/18 02/28/18 08:50 07:30 WBC RBC Hgb Hct MCV MCH MCHC RDW Plt Count MPV Sodium Potassium Chloride Carbon Dioxide Anion Gap BUN Creatinine Creat Clearance w eGFR Random Glucose Calcium Total Bilirubin AST ALT Alkaline Phosphatase Ammonia 130.13 H Total Protein Albumin Urine Color Ltyellow Urine Appearance Clear Urine pH 7.0 Ur Specific [place] 1.027 Urine Protein Negative Urine Glucose (UA) 3+ H Urine Ketones Negative Urine Blood Negative Urine Nitrite Negative Urine Bilirubin Negative Urine Urobilinogen Negative Ur Leukocyte Esterase Negative RPR Titer WITHDRAWAL SX ELEVATED AMMONIA LEVEL CONTINUE DETOX ORDERED ENCOURAGE ORAL FLUIDS CONTINUE TO MONITOR CLINICALLY
[2018-03-02 17:35] LABS: URINE APPEARANCE CLEAR; URINE BILIRUBIN NEGATIVE (<2.0 mg/dL); URINE COLOR LTYELLOW; URINE GLUCOSE (UA) 3+ (NEGATIVE); URINE KETONE NEGATIVE (NEGATIVE); URINE LEUK ESTERASE NEGATIVE (NEGATIVE); URINE NITRITE NEGATIVE (NEGATIVE); URINE PROTEIN NEGATIVE (NEGATIVE)
[2018-03-02] MEDS: THIAMINE HCL 100 MG TABLET (FP) PO SCH (22:20)
[2018-03-03] MEDS ORDERED: ONDANSETRON *ODT* 4 MG TABLET SL PRN (05:08)
[2018-03-03] MEDS ORDERED: METHADONE HCL 5 MG TABLET (FOR DETOX USE ONLY) PO SCH (06:00)
[2018-03-03] MEDS: LACTULOSE 20 GM/30 ML UDC (FOR ORAL USE ONLY) PO SCH ×3 (06:58→23:08)
[2018-03-03] MEDS: INSULIN SLIDING SCALE (NOVOLOG) 1 VIAL SQ SCH ×3 (06:58→17:54)
[2018-03-03] MEDS ORDERED: METHADONE HCL 5 MG TABLET (FOR DETOX USE ONLY) ONE (10:19)
[2018-03-03] MEDS: PRENATAL VITAMINS W/ FOLIC ACID TABLET (FP) PO SCH (10:19)
--- NOTE | 2018-03-03 12:32 | PN ---
[facility] Progress Note Note: PATIENT COMPLETED DETOX REGIMEN. STATED " I FEEL SICK". PATIENT C/O COUGH, CHILLS AND BODY ACHES. Vital Signs Temperature 100.7 F H 03/03/18 10:28 Pulse Rate 110 H 03/03/18 10:28 Respiratory Rate 20 03/03/18 10:28 Blood Pressure 119/79 03/03/18 10:28 O2 Sat by Pulse Oximetry (%) Laboratory Tests 02/27/18 02/27/18 02/27/18 08:00 08:00 08:00 WBC 5.8 RBC 5.13 Hgb 12.5 Hct 40.2 MCV 78.4 L MCH 24.3 L MCHC 31.0 L RDW 16.3 H Plt Count 152 MPV 10.2 Sodium 136 Potassium 4.1 Chloride 99 Carbon Dioxide 29 Anion Gap 8 BUN 20 H Creatinine 0.8 Creat Clearance w eGFR > 60 POC Glucometer Random Glucose 289 H Calcium 8.1 L Total Bilirubin 0.5 AST 124 H ALT 130 H Alkaline Phosphatase 271 H Ammonia Total Protein 6.5 Albumin 2.8 L Urine Color Urine Appearance Urine pH Ur Specific [place] Urine Protein Urine Glucose (UA) Urine Ketones Urine Blood Urine Nitrite Urine Bilirubin Urine Urobilinogen Ur Leukocyte Esterase RPR Titer Nonreactive 02/27/18 02/28/18 03/02/18 08:50 07:30 12:30 WBC RBC Hgb Hct MCV MCH MCHC RDW Plt Count MPV Sodium Potassium Chloride Carbon Dioxide Anion Gap BUN Creatinine Creat Clearance w eGFR POC Glucometer Random Glucose Calcium Total Bilirubin AST ALT Alkaline Phosphatase Ammonia 130.13 H 104.08 H Total Protein Albumin Urine Color Ltyellow Urine Appearance Clear Urine pH 7.0 Ur Specific [place] 1.027 Urine Protein Negative Urine Glucose (UA) 3+ H Urine Ketones Negative Urine Blood Negative Urine Nitrite Negative Urine Bilirubin Negative Urine Urobilinogen Negative Ur Leukocyte Esterase Negative RPR Titer 03/02/18 03/02/18 13:33 16:24 WBC RBC Hgb Hct MCV MCH MCHC RDW Plt Count MPV Sodium Potassium Chloride Carbon Dioxide Anion Gap BUN Creatinine Creat Clearance w eGFR POC Glucometer 349 Random Glucose Calcium Total Bilirubin AST ALT Alkaline Phosphatase Ammonia Total Protein Albumin Urine Color Ltyellow Urine Appearance Clear Urine pH 8.0 Ur Specific [place] 1.028 Urine Protein Negative Urine Glucose (UA) 3+ H Urine Ketones Negative Urine Blood Negative Urine Nitrite Negative Urine Bilirubin Negative Urine Urobilinogen 2.0 Ur Leukocyte Esterase Negative RPR Titer LOW GRADE TEMP WITHDRAWAL SX ELEVATED AMMONIA LEVEL CXR ORDERED RESULTS SHOW NO CHANGES SINCE PREVIOUS XRAY LEVAQUIN 500MG DAILY X 7 DAYS CONTINUE LACTULOSE ENCOURAGE ORAL FLUIDS MOTRIN PRN FOR TEMP CONTINUE TO MONITOR
--- NOTE | 2018-03-03 19:28 | PN ---
S Progress Note Note: Vital Signs Temperature 100.4 F H 03/03/18 17:48 Pulse Rate 94 H 03/03/18 17:48 Respiratory Rate 16 03/03/18 17:48 Blood Pressure 118/76 03/03/18 17:48 O2 Sat by Pulse Oximetry (%) Patient with elevated temp on levoquin, refuses ibuprofen for fever Patient Aox3, no distress resting comfortably in bed full ROM skin intact Patient advised on the importance to adhere to treatment recommendations and risk of declining tx. Patient verbalize understanding. Will start ASA 81 mg QD for elevated temp increase fluids continue to monitor
[2018-03-03] MEDS: ASPIRIN COATED 81 MG TABLET.EC PO SCH (19:46)
[2018-03-03] MEDS: THIAMINE HCL 100 MG TABLET (FP) PO SCH (23:08)
[2018-03-04] MEDS: LACTULOSE 20 GM/30 ML UDC (FOR ORAL USE ONLY) PO SCH ×2 (06:13→13:05)
[2018-03-04] MEDS: INSULIN SLIDING SCALE (NOVOLOG) 1 VIAL SQ SCH ×2 (06:48→11:37)
[2018-03-04 09:43] VITALS: BP 125/88; PULSE 95; TEMP 97
[2018-03-04] MEDS: ASPIRIN COATED 81 MG TABLET.EC PO SCH (10:15)
[2018-03-04] MEDS: PRENATAL VITAMINS W/ FOLIC ACID TABLET (FP) PO SCH (10:15)
--- NOTE | 2018-03-04 11:26 | DS ---
[facility] Detox Discharge Summary Admission Date: 02/26/18 Discharge Date: 03/04/18 - History Present History: Alcohol Dependence, Opioid Dependence - Physical Exam Results Vital Signs: Vital Signs Temperature 97.0 F L 03/04/18 09:42 Pulse Rate 95 H 03/04/18 09:42 Respiratory Rate 18 03/04/18 09:42 Blood Pressure 125/88 03/04/18 09:42 O2 Sat by Pulse Oximetry (%) Pertinent Admission Physical Exam Findings: PATIENT COMPLETED DETOX WITHOUT ADVERSE EVENT. PATIENT MEDICALLY STABLE. DENIES SI/HI. PATIENT STATES HE FEELS BETTER. CXR NEGATIVE. PATIENT CONTINUES WITH LEVAQUIN AND IS AFEBRILE THIS MORNING. ACCEPTED REHAB REFERRAL TO [facility]. PATIENT ENCOURAGED TO COMPLETE REHAB TO PREVENT RELAPSE. - Treatment Hospital Course: Detox Protocol Followed, Detoxed Safely, Responded well, Discharged Condition Good, Rehab Referral Accepted Patient has Accepted a Rehab Referral to: [facility] - Medication Discharge Medications: Ambulatory Orders NK [No Known Home Medication] 02/26/18 - Diagnosis (1) Alcohol dependence with uncomplicated withdrawal Current Visit: Yes Status: Resolved - AMA Did Patient Leave Against Medical Advice: No
== END 2018-03-04 13:59 | disposition other institution (70) | DRG 773 ==
LOC: YASAS 14:12 → Y3N 17:55
PROC: HZ2ZZZZ Detoxification Services for Substance Abuse Treatment (ICD-10-PCS; principal; 2018-02-26)
DX: F11.23 Opioid dependence with withdrawal (principal); F10.230 Alcohol dependence with withdrawal, uncomplicated; F14.23 Cocaine dependence with withdrawal; F12.20 Cannabis dependence, uncomplicated; F19.282 Other psychoactive substance dependence with psychoactive substance-induced sleep disorder; I10 Essential (primary) hypertension; R50.9 Fever, unspecified; E72.20 Disorder of urea cycle metabolism, unspecified; R73.9 Hyperglycemia, unspecified; J44.1 Chronic obstructive pulmonary disease with (acute) exacerbation; J45.22 Mild intermittent asthma with status asthmaticus; R00.0 Tachycardia, unspecified; R94.5 Abnormal results of liver function studies; B18.2 Chronic viral hepatitis C; H52.12 Myopia, left eye; R81 Glycosuria; R79.89 Other specified abnormal findings of blood chemistry; Z87.891 Personal history of nicotine dependence; Z88.0 Allergy status to penicillin
CPT/HCPCS: 36415; 71046-TC-FY; 80053; 81003; 82140; 82962; 85027; 86593; 93005; 93010; 94640; Q0162

== ENCOUNTER 2018-03-04 14:22 | Inpatient (IN) | payer OTHER ==
[2018-03-04] MEDS ORDERED: MAG HYDROX/AL HYDROX/SIMETH 30 ML UNIT-DOSE CUP PO PRN (15:02)
[2018-03-04] MEDS ORDERED: LOPERAMIDE HCL 2 MG CAPSULE PO PRN (15:02)
[2018-03-04] MEDS ORDERED: MAGNESIUM HYDROX 2400MG/30ML ORAL SUSPENSION 30 ML CUP PO PRN (15:02)
[2018-03-04] MEDS ORDERED: guaiFENesin/D-METHORPHAN HB 10 ML UNIT-DOSE CUPS PO PRN (15:02)
[2018-03-04] MEDS ORDERED: ACETAMINOPHEN 325 MG TABLET (FP) PO PRN (15:02)
[2018-03-04] MEDS ORDERED: P-EPHED 60MG/TRIPROLIDI 2.5MG TABLET PO PRN (15:02)
[2018-03-04] MEDS ORDERED: IBUPROFEN 400 MG TABLET (FP) PO PRN (15:02)
[2018-03-04] MEDS ORDERED: MAGNESIUM CITRATE 300 ML BOTTLE PO PRN (15:02)
[2018-03-04] MEDS ORDERED: MENTHOL/PHENOL 1 EACH UD MM PRN (15:02)
[2018-03-04] MEDS ORDERED: hydrOXYzine PAMOATE 25 MG CAPSULE (FP) PO PRN (15:02)
[2018-03-04] MEDS ORDERED: CYCLOBENZAPRINE HCL 10 MG TABLET (FP) PO PRN (15:03)
--- NOTE | 2018-03-04 15:06 | HP ---
[facility]ARG[facility] Rehab Assess/Revision - Admission History Admitted to Rehab from: [facility] [place] - Vital signs Vital Signs: Vital Signs Period Temp Pulse Resp BP Sys/Reyna Pulse Ox Last 24 Hr 98.7 F 99 18 124/88 - Findings Detox History & Physical reviewed: Yes Concur with findings: Yes Inpatient Rehab Admission - Initial Determination Are CD services needed?: Yes Free of communicable disease: Yes Not in need of hospitalization: Yes - Rehab Admission Criteria Previous failed treatment: Yes Poor recovery environment: Yes Comorbidities: Yes Lacks judgement: Yes Patient is meeting Inpatient Rehab admission criteria:: Yes
--- NOTE | 2018-03-04 16:23 | HP ---
Psychiatrist Admission - Data Date of interview: 03/04/18 Admission source: [facility] Identifying data: Patient is a 57 year old single male, without children, domiciled, unemployed, and is supported by [facility]. This is one of multiple admissions for patient. Patient admitted to for alcohol dependence although he denies drinking alcohol. As per admission note he reported drinking 1/2 gallon of vodka daily Medical History: Asthma, hypertension, Hep C, Hep B (treated) Gonorrhea in 1993 , COPD, right wrist fx repair 1973; right hip replacement in 07/2009, left mandible surgery in 1988 Psychiatric History: Patient giving minimal information on psychiatric history. Patient reports two psychiatric hospitalizations, most recently at [facility] in 2016 for PTSD. States he was diagnosed with PTSD in 2009 after a "[facility] incident." Patient denies h/o outpatient psychiatric care. He denies h/o suicide attempt. Physical/Sexual Abuse/Trauma History: denies. Vital Signs: Vital Signs - 24 hr 03/04/18 14:30 Temperature 98.7 F Pulse Rate 99 H Respiratory 18 Rate Blood Pressure 124/88 Allergies/Adverse Reactions: Allergies Allergy/AdvReac Type Severity Reaction Status Date / Time Penicillins Allergy Severe Difficulty Verified 03/04/18 14:29 Breathing tomato [Tomato] Allergy Severe Hives Verified 03/04/18 14:29 pasta Allergy Severe Hives Uncoded 03/04/18 14:29 Date of last physical exam: 02/26/18 Concur with the findings of this exam: Yes - Substance Abuse/Tx History Hx Alcohol Use: Yes (he denies but as per chart he reported drinking 1/2 gallon of vodka daily) Hx Substance Use: Yes (Varies) Substance Use Type: Opiates Hx Substance Use Treatment: Yes ([facility] in 2016) Mental Status Exam - Mental Status Exam Alert and Oriented to: Time, Place, Person Cognitive Function: Good Patient Appearance: Well Groomed Mood: Withdrawn, Euthymic, Irritable Affect: Mood Congruent Patient Behavior: Cooperative Speech Pattern: Appropriate Voice Loudness: Mildly Soft/Quiet Thought Process: Intact, Goal Oriented Thought Disorder: Not Present Hallucinations: Denies Suicidal Ideation: Denies Homicidal Ideation: Denies Insight/Judgement: Poor Sleep: Fair Appetite: Fair Muscle strength/Tone: Normal Gait/Station: Normal Psychiatric Findings - Problem List ([place] 1, 2,3) (1) Substance induced mood disorder Current Visit: Yes Status: Acute (2) Alcohol dependence Current Visit: Yes Status: Acute (3) Cocaine dependence Current Visit: No Status: Chronic Qualifiers: Substance use status: uncomplicated Qualified Code(s): F14.20 - Cocaine dependence, uncomplicated (4) Opioid dependence Current Visit: Yes Status: Acute - Initial Treatment Plan Initial Treatment Plan: Psychoeducation provided. Detoxification in progress. Observation.
[2018-03-04] MEDS: INSULIN SLIDING SCALE (NOVOLOG) 1 VIAL SQ SCH (16:47)
[2018-03-04] MEDS: LACTULOSE 20 GM/30 ML UDC (FOR ORAL USE ONLY) PO SCH (21:42)
[2018-03-04] MEDS: THIAMINE HCL 100 MG TABLET (FP) PO SCH (21:43)
[2018-03-04] MEDS ORDERED: MELATONIN 5 MG TABLETS PO PRN (22:00)
[2018-03-05] MEDS: LACTULOSE 20 GM/30 ML UDC (FOR ORAL USE ONLY) PO SCH ×2 (06:25→21:37)
[2018-03-05] MEDS: INSULIN SLIDING SCALE (NOVOLOG) 1 VIAL SQ SCH ×3 (06:26→16:57)
[2018-03-05] MEDS: PRENATAL VITAMINS W/ FOLIC ACID TABLET (FP) PO SCH (10:13)
[2018-03-05] MEDS: ASPIRIN 81 MG CHEWABLE TABLETS PO SCH (10:13)
--- NOTE | 2018-03-05 11:32 | PN ---
[facility] Progress Note Note: PT ADMITTED TO REHAB FROM DETOX YESTERDAY. PT WAS SPOKEN TO TODAY RE: NONCOMPLIANCE TO BGM AND HYPERGLYCEMIC CARE, HIGH AMMONIA MONITORING AND LACTULOSE ADMINISTRATION . PT HAS A LONG STANDING HX OF HYPERGLYCEMIA FROM PREVIOUS ADMISSIONS BUT OFTEN REFUSES TREATMENT OR DENIES HE HAS NO DM. PT REPORTS HE HAS NOT FOLLOWED UP WITH PRIMARY CARE. PT HAS A HX OF HTN,ASTHMA,HEP C AND AVASCULAR NECROSIS OF HIP. STATES HIV+ SINCE 1992 AND ON ATRIPLA BUT DID NOT BRING HIS MEDICATION AND NO PHARMACY CONFIRMATION OF CURRENT USE. PT DENIES HAVING IT IN ALL PREVIOUS H/P AND LAST SEROLOGY TEST OF 10/24/17 INDICATES NEGATIVE RESULT. PT WAS SPOKEN TO ABOUT RESULTS AND CLAIM OF TAKING MEDICATION. PT DOES NOT APPEAR TO HAVE ANY EXPLANATION. PT STATES HE HAS PRIMARY CARE AT [facility] ON [address]. Vital Signs - 24 hr 03/04/18 03/05/18 03/05/18 14:30 00:30 03:30 Temperature 98.7 F Pulse Rate 99 H Respiratory 18 18 18 Rate Blood Pressure 124/88 03/05/18 07:07 Temperature 98.6 F Pulse Rate 90 Respiratory 18 Rate Blood Pressure 147/83 Laboratory Tests 03/05/18 08:35 Ammonia 77.44 H NAD PLAN:PT STATES HE WILL FOLLOW THROUGH WITH HIS PRIMARY CARE AFTER REHAB PT VERBALIZED HE WILL COMPLY WITH TREATMENT WHILE IN REHAB FOR HIS OWN HEALTH BENEFIT.
[2018-03-05] MEDS ORDERED: INSULIN (NOVOLOG) ASPART 100 UNITS/ML 10ML VIAL ONE ×2 (11:44→16:58)
[2018-03-05] MEDS: THIAMINE HCL 100 MG TABLET (FP) PO SCH (21:38)
[2018-03-06] MEDS ORDERED: INSULIN (NOVOLOG) ASPART 100 UNITS/ML 10ML VIAL ONE ×2 (06:26→11:55)
[2018-03-06] MEDS: INSULIN SLIDING SCALE (NOVOLOG) 1 VIAL SQ SCH ×3 (07:03→17:09)
[2018-03-06] MEDS: LACTULOSE 20 GM/30 ML UDC (FOR ORAL USE ONLY) PO SCH ×2 (10:16→21:47)
[2018-03-06] MEDS: ASPIRIN 81 MG CHEWABLE TABLETS PO SCH (10:16)
[2018-03-06] MEDS: PRENATAL VITAMINS W/ FOLIC ACID TABLET (FP) PO SCH (10:16)
[2018-03-06] MEDS: THIAMINE HCL 100 MG TABLET (FP) PO SCH (21:47)
[2018-03-07] MEDS ORDERED: INSULIN (NOVOLOG) ASPART 100 UNITS/ML 10ML VIAL ONE ×3 (06:31→23:01)
[2018-03-07] MEDS: INSULIN SLIDING SCALE (NOVOLOG) 1 VIAL SQ SCH ×3 (07:08→17:04)
[2018-03-07] MEDS: PRENATAL VITAMINS W/ FOLIC ACID TABLET (FP) PO SCH (09:46)
[2018-03-07] MEDS: ASPIRIN 81 MG CHEWABLE TABLETS PO SCH (09:46)
[2018-03-07] MEDS: LACTULOSE 20 GM/30 ML UDC (FOR ORAL USE ONLY) PO SCH ×2 (09:47→22:26)
[2018-03-07] MEDS: THIAMINE HCL 100 MG TABLET (FP) PO SCH (22:27)
[2018-03-08] MEDS: INSULIN SLIDING SCALE (NOVOLOG) 1 VIAL SQ SCH ×3 (06:40→16:55)
[2018-03-08] MEDS: ASPIRIN 81 MG CHEWABLE TABLETS PO SCH (10:36)
[2018-03-08] MEDS: LACTULOSE 20 GM/30 ML UDC (FOR ORAL USE ONLY) PO SCH ×2 (10:37→22:28)
[2018-03-08] MEDS: PRENATAL VITAMINS W/ FOLIC ACID TABLET (FP) PO SCH (10:37)
[2018-03-08] MEDS ORDERED: COLLOIDAL OATMEAL 1 BAR EACH TP PRN (11:50)
[2018-03-08] MEDS ORDERED: INSULIN (NOVOLOG) ASPART 100 UNITS/ML 10ML VIAL ONE ×2 (12:13→16:53)
[2018-03-08] MEDS: MINERAL OIL/PETROLAT/WATER TOPICAL CREAM 113 GM JAR TP SCH (14:33)
[2018-03-08] MEDS: THIAMINE HCL 100 MG TABLET (FP) PO SCH (22:28)
[2018-03-09] MEDS: INSULIN SLIDING SCALE (NOVOLOG) 1 VIAL SQ SCH ×3 (06:17→16:56)
[2018-03-09] MEDS: ASPIRIN 81 MG CHEWABLE TABLETS PO SCH (10:34)
[2018-03-09] MEDS: LACTULOSE 20 GM/30 ML UDC (FOR ORAL USE ONLY) PO SCH ×2 (10:34→22:15)
[2018-03-09] MEDS: PRENATAL VITAMINS W/ FOLIC ACID TABLET (FP) PO SCH (10:34)
[2018-03-09] MEDS: MINERAL OIL/PETROLAT/WATER TOPICAL CREAM 113 GM JAR TP SCH (10:34)
[2018-03-09] MEDS ORDERED: INSULIN (NOVOLOG) ASPART 100 UNITS/ML 10ML VIAL ONE ×2 (12:02→16:57)
[2018-03-09] MEDS: THIAMINE HCL 100 MG TABLET (FP) PO SCH (22:15)
[2018-03-10] MEDS ORDERED: INSULIN (NOVOLOG) ASPART 100 UNITS/ML 10ML VIAL ONE ×2 (06:36→17:04)
[2018-03-10] MEDS: INSULIN SLIDING SCALE (NOVOLOG) 1 VIAL SQ SCH ×3 (07:17→17:02)
[2018-03-10] MEDS: ASPIRIN 81 MG CHEWABLE TABLETS PO SCH (10:22)
[2018-03-10] MEDS: LACTULOSE 20 GM/30 ML UDC (FOR ORAL USE ONLY) PO SCH (10:22)
[2018-03-10] MEDS: PRENATAL VITAMINS W/ FOLIC ACID TABLET (FP) PO SCH (10:22)
[2018-03-10] MEDS: MINERAL OIL/PETROLAT/WATER TOPICAL CREAM 113 GM JAR TP SCH (10:23)
--- NOTE | 2018-03-10 11:57 | PN ---
[facility] Progress Note (SOAP) Subjective: PT REPORTS TO NURSE CINDY THAT HIS RIGHT HIP LOCKED UP ON HIM AND HE FELL LAST NIGHT WHILE GOING TO THE BATHROOM BUT BRACED HIMSELF WITH HIS HANDS ON THE FLOOR. DENIES ANY HEAD INVOLVEMENT. REPORTS HAPPENS SOMETIMES DUE TO HIS HIP PROBLEMS-HX OF TOTAL HIP REPLACEMENT. Objective: 03/10/18 15:21 Vital Signs (72 hours) 03/08/18 03/08/18 03/08/18 00:30 03:30 07:07 Temperature 98.9 F Pulse Rate 99 H Respiratory 18 18 18 Rate Blood Pressure 124/86 03/09/18 03/09/18 03/09/18 00:30 03:30 07:13 Temperature 98.4 F Pulse Rate 92 H Respiratory 18 18 18 Rate Blood Pressure 135/93 03/10/18 03/10/18 03/10/18 00:30 03:30 06:30 Temperature Pulse Rate Respiratory 18 18 18 Rate Blood Pressure 03/10/18 07:01 Temperature 99.0 F Pulse Rate 92 H Respiratory 18 Rate Blood Pressure 126/90 Laboratory Tests 03/05/18 03/05/18 03/05/18 08:35 11:38 16:55 POC Glucometer 338 223 Ammonia 77.44 H 03/06/18 03/06/18 03/06/18 06:23 11:52 17:08 POC Glucometer 214 335 158 Ammonia 03/07/18 03/07/18 03/07/18 06:28 11:55 16:58 POC Glucometer 218 390 197 Ammonia 03/08/18 03/08/18 03/08/18 06:39 12:08 16:38 POC Glucometer 159 279 329 Ammonia 03/09/18 03/09/18 03/09/18 06:15 11:58 16:53 POC Glucometer 162 264 267 Ammonia 03/10/18 03/10/18 06:32 11:50 POC Glucometer 227 187 Ammonia 03/10/18 15:21 NO INJURY NOTED Assessment: 03/10/18 15:22 FALL-UNWITNESSED Plan: FALL PROTOCOL #2
[2018-03-10 15:54] LABS: HEMATOCRIT 45.1 % (35.4-49); HEMOGLOBIN 14.3 GM/dL (11.7-16.9); MCH 24.9 pg (25.7-33.7); MCHC 31.7 g/dl (32.0-35.9); MEAN CELL VOLUME 78.4 fl (80-96); MEAN PLT VOLUME 10.7 fl (7.5-11.1); PLATELET COUNT 167 K/MM3 (134-434); RBC 5.75 M/mm3 (4.00-5.60); RDW 17.5 % (11.9-15.9); WHITE BLOOD COUNT 4.7 K/mm3 (4.0-10.0)
[2018-03-10 16:23] LABS: ALBUMIN 2.9 g/dl (3.4-5.0); ALK PHOS 247 U/L (45-117); ANION GAP 8 MMOL/L (8-16); BILIRUBIN,TOTAL 0.8 mg/dL (0.2-1); BLOOD UREA NITROGEN 14 mg/dL (7-18); CALCIUM 8.5 mg/dL (8.5-10.1); CHLORIDE 102 mmol/L (98-107); CO2 27 mmol/L (21-32); CREATININE 0.8 mg/dL (0.55-1.3); GLUCOSE,RANDOM 272 mg/dL (74-106); POTASSIUM 4.3 mmol/L (3.5-5.1); SGOT/AST 127 U/L (15-37); SGPT/ALT 118 U/L (13-61); SODIUM 138 mmol/L (136-145); TOT PROT 7.2 g/dl (6.4-8.2)
[2018-03-10] MEDS: THIAMINE HCL 100 MG TABLET (FP) PO SCH (23:15)
[2018-03-11] MEDS: INSULIN SLIDING SCALE (NOVOLOG) 1 VIAL SQ SCH ×3 (07:11→16:23)
[2018-03-11] MEDS: PRENATAL VITAMINS W/ FOLIC ACID TABLET (FP) PO SCH (10:39)
[2018-03-11] MEDS: ASPIRIN 81 MG CHEWABLE TABLETS PO SCH (10:39)
[2018-03-11] MEDS: MINERAL OIL/PETROLAT/WATER TOPICAL CREAM 113 GM JAR TP SCH (10:41)
[2018-03-11] MEDS ORDERED: INSULIN (NOVOLOG) ASPART 100 UNITS/ML 10ML VIAL ONE (16:23)
[2018-03-11] MEDS: THIAMINE HCL 100 MG TABLET (FP) PO SCH (21:43)
[2018-03-12] MEDS: INSULIN SLIDING SCALE (NOVOLOG) 1 VIAL SQ SCH ×3 (08:02→16:31)
[2018-03-12] MEDS: PRENATAL VITAMINS W/ FOLIC ACID TABLET (FP) PO SCH (10:36)
[2018-03-12] MEDS: MINERAL OIL/PETROLAT/WATER TOPICAL CREAM 113 GM JAR TP SCH (10:37)
[2018-03-12] MEDS: ASPIRIN 81 MG CHEWABLE TABLETS PO SCH (10:37)
[2018-03-12] MEDS ORDERED: INSULIN (NOVOLOG) ASPART 100 UNITS/ML 10ML VIAL ONE (12:02)
[2018-03-12] MEDS: THIAMINE HCL 100 MG TABLET (FP) PO SCH (21:44)
[2018-03-13] MEDS: INSULIN SLIDING SCALE (NOVOLOG) 1 VIAL SQ SCH ×3 (06:05→16:55)
[2018-03-13] MEDS: ASPIRIN 81 MG CHEWABLE TABLETS PO SCH (09:47)
[2018-03-13] MEDS: PRENATAL VITAMINS W/ FOLIC ACID TABLET (FP) PO SCH (09:47)
[2018-03-13] MEDS: MINERAL OIL/PETROLAT/WATER TOPICAL CREAM 113 GM JAR TP SCH (09:47)
[2018-03-13] MEDS ORDERED: INSULIN (NOVOLOG) ASPART 100 UNITS/ML 10ML VIAL ONE ×3 (11:55→16:54)
[2018-03-13] MEDS: THIAMINE HCL 100 MG TABLET (FP) PO SCH (22:39)
[2018-03-14] MEDS: INSULIN SLIDING SCALE (NOVOLOG) 1 VIAL SQ SCH ×3 (06:49→17:05)
[2018-03-14] MEDS: ASPIRIN 81 MG CHEWABLE TABLETS PO SCH (09:51)
[2018-03-14] MEDS: MINERAL OIL/PETROLAT/WATER TOPICAL CREAM 113 GM JAR TP SCH (09:51)
[2018-03-14] MEDS: PRENATAL VITAMINS W/ FOLIC ACID TABLET (FP) PO SCH (09:51)
[2018-03-14] MEDS ORDERED: INSULIN (NOVOLOG) ASPART 100 UNITS/ML 10ML VIAL ONE (11:50)
[2018-03-14] MEDS: THIAMINE HCL 100 MG TABLET (FP) PO SCH (21:35)
[2018-03-15] MEDS: INSULIN SLIDING SCALE (NOVOLOG) 1 VIAL SQ SCH ×2 (06:39→11:33)
[2018-03-15 06:55] VITALS: BP 112/71; PULSE 99; TEMP 97.8
[2018-03-15] MEDS: PRENATAL VITAMINS W/ FOLIC ACID TABLET (FP) PO SCH (10:28)
[2018-03-15] MEDS: ASPIRIN 81 MG CHEWABLE TABLETS PO SCH (10:28)
[2018-03-15] MEDS: MINERAL OIL/PETROLAT/WATER TOPICAL CREAM 113 GM JAR TP SCH (10:29)
--- NOTE | 2018-03-15 11:23 | PN ---
Psychiatric Progress Note Vital Signs: Vital Signs Period Temp Pulse Resp BP Sys/Reyna Pulse Ox Last 24 Hr 97.8 F 99 18-18 112/71 Date of Session: 03/15/18 Chief Complaint:: Discharge visit Current Medications: Active Medications Generic Name Dose Route Start Last Admin Trade Name Freq PRN Reason Stop Dose Admin Al Hydroxide/Mg Hydroxide 30 ml 03/04/18 15:02 Mylanta Oral Suspension - PO Q6H PRN DYSPEPSIA Aspirin 81 mg 03/05/18 10:00 03/15/18 10:28 Asa - PO 81 mg DAILY VERÓNICA Administration Cyclobenzaprine HCl 10 mg 03/04/18 15:03 Flexeril - PO TID PRN MUSCLE SPASMS Eucalyptus/Menthol/Phenol/Sorbitol 1 each 03/04/18 15:02 Cepastat Lozenge - MM Q4H PRN SORE THROAT Guaifenesin 10 ml 03/04/18 15:02 Robitussin Dm - PO Q6H PRN COUGH Hydroxyzine Pamoate 25 mg 03/04/18 15:02 Vistaril - PO Q4H PRN AGITATION Ibuprofen 400 mg 03/04/18 15:02 Motrin - PO Q6H PRN Pain Level 4-6 Insulin Aspart 1 vial 03/04/18 16:30 03/15/18 06:39 Novolog Vial Sliding Scale - SQ Not Given [facility]AC [facility] Protocol Loperamide HCl 4 mg 03/04/18 15:02 Imodium - PO Q6H PRN DIARRHEA Magnesium Citrate 300 ml 03/04/18 15:02 Citroma - PO Q48H PRN CONSTIPATION Magnesium Hydroxide 30 ml 03/04/18 15:02 Milk Of Magnesia - PO DAILY PRN CONSTIPATION Melatonin 5 mg 03/04/18 22:00 Melatonin PO HS PRN INSOMNIA Multi-Ingredient Lotion 1 applic 03/08/18 12:15 03/15/18 10:29 Eucerin (Small Jar) - TP 1 applic DAILY VERÓNICA Administration Multivit/Folic Acid/Iron 1 tab 03/05/18 10:00 03/15/18 10:28 Vitamins (Sjr) - PO 1 tab DAILY VERÓNICA Administration Pseudoephedrine/Triprolidine 1 combo 03/04/18 15:02 Actifed - PO TID PRN NASAL CONGESTION Thiamine HCl 100 mg 03/04/18 22:00 11/04/18 21:35 Vitamin B1 - PO Not Given HS [facility] Current Side Effect: No Lab tests ordered: No Lab tests reviewed: Yes Provider note:: nursing home treatment Total face to face time:: 30 Mental Status Exam - Mental Status Exam Alert and Oriented to: Time, Place, Person Cognitive Function: Grossly Intact Patient Appearance: Well Groomed Mood: Euthymic Affect: Appropriate, Normal Range Patient Behavior: Cooperative Speech Pattern: Clear Voice Loudness: Normal Thought Process: Goal Oriented Thought Disorder: Not Present Hallucinations: Denies Suicidal Ideation: Denies Homicidal Ideation: Denies Insight/Judgement: Fair Sleep: Fair Appetite: Good Muscle strength/Tone: Normal Gait/Station: Normal Psychiatric Treatment Plan - Problem List (1) Alcohol dependence Current Visit: Yes (2) Opioid dependence Current Visit: Yes (3) Substance induced mood disorder Current Visit: Yes (4) Bear's palsy Current Visit: No
--- NOTE | 2018-03-15 11:25 | PN ---
S Progress Note Note: REHAB COMPLETED AND PT REPORTS HE IS DISCHARGED TODAY TO FOLLOW UP WITH AFTERCARE REFERRAL. PT INSTRUCTED TO FOLLOW UP WITH HIS PMD FOR MEDICAL MANAGEMENT OF COMORBID CONDITIONS. Vital Signs 03/15/18 03/15/18 03:30 06:55 Temperature 97.8 F Pulse Rate 99 H Respiratory 18 18 Rate Blood Pressure 112/71 NAD PLAN':PT IS DISCHARGING TODAY.
[2018-03-15] MEDS ORDERED: INSULIN (NOVOLOG) ASPART 100 UNITS/ML 10ML VIAL ONE (11:32)
== END 2018-03-15 11:45 | disposition home or self-care (01) | DRG 772 ==
LOC: YASAS 14:22 → Y5N 14:24
PROVIDERS: ADMIT Psychiatry & Neurology Psychiatry; ATTEND Psychiatry & Neurology Psychiatry
PROC: HZ42ZZZ Group Counseling for Substance Abuse Treatment, Cognitive-Behavioral (ICD-10-PCS; principal; 2018-03-04)
DX: F11.20 Opioid dependence, uncomplicated (principal); F10.20 Alcohol dependence, uncomplicated; F14.20 Cocaine dependence, uncomplicated; F19.24 Other psychoactive substance dependence with psychoactive substance-induced mood disorder; G51.0 Bell's palsy; I10 Essential (primary) hypertension; J45.909 Unspecified asthma, uncomplicated; B18.2 Chronic viral hepatitis C; E11.9 Type 2 diabetes mellitus without complications; Z87.438 Personal history of other diseases of male genital organs; Z91.19 Patient's noncompliance with other medical treatment and regimen; Z96.641 Presence of right artificial hip joint; Z88.0 Allergy status to penicillin; W18.30XA Fall on same level, unspecified, initial encounter; Y93.9 Activity, unspecified; Y92.238 Other place in hospital as the place of occurrence of the external cause
CPT/HCPCS: 36415; 80053; 82140; 82962; 85027

== ENCOUNTER 2018-04-24 10:53 | Inpatient (IN) | payer OTHER ==
[2018-04-24 11:18] VITALS: BMI 29.7
--- NOTE | 2018-04-24 11:41 | HP ---
COWS - Scale Resting Pulse: 0= [place] 80 or Below Sweatin= Chills/Flushing Restless Observation: 1= Difficult to Sit Still Pupil Size: 0= Normal to Room Light Bone or Joint Aches: 1= Mild Discomfort Runny Nose/ Eye Tearin= Runny Nose/Eyes GI Upset > 30mins: 1= Stomach Cramp Tremor Observation: 2= Slight Tremor Visible Yawning Observation: 1= 1-2x During Session Anxiety or Irritability: 1=Feels Anxious/Irritable Goose Flesh Skin: 0=Smooth Skin COWS Score: 10 Admission ROS S - HPI Chief Complaint: I need help, I want to stop being an addict, this is it, I'm serious Allergies/Adverse Reactions: Allergies Allergy/AdvReac Type Severity Reaction Status Date / Time Penicillins Allergy Severe Difficulty Verified 04/24/18 12:23 Breathing pasta Allergy Severe Hives Uncoded 04/24/18 12:23 History of Present Illness: 57 yo gentleman here for opiate detox. This is one of multiple admissions for treatment. No seizures but states he has had black outs and overdoses, last one a few weeks ago. He was last here for detox and rehab 02/26-03/15/18. He was supposed to go to [facility] after leaving here but the bed was not available and he relapsed within a few days. urine tox + bzo and he admits to sometimes using ativan but not regularly. He is not currently drinking alcohol. Unable to check [place] as down for maintenance today until 10pm. Exam Limitations: Clinical Condition - Ebola screening Have you traveled outside of the country in the last 21 days: No (N) Have you had contact with anyone from an Ebola affected area: No Have you been sick,other than usual withdrawal symptoms: No Do you have a fever: No - Review of Systems Constitutional: Chills, Loss of Appetite, Changes in sleep EENT: reports: Blurred Vision, Nose Congestion Respiratory: reports: No Symptoms reported Cardiac: reports: No Symptoms Reported GI: reports: Diarrhea, Nausea : reports: Dysuria Musculoskeletal: reports: Back Pain, Muscle Pain Integumentary: reports: No Symptoms Reported Neuro: reports: Headache Endocrine: reports: No Symptoms Reported Hematology: reports: No Symptoms Reported Psychiatric: reports: Judgement Intact, Mood/Affect Appropiate, Anxious Patient History - Patient Medical History Hx Anemia: No Hx Asthma: Yes (non compliant with meds) Hx Chronic Obstructive Pulmonary Disease (COPD): Yes (non compliant with meds) Hx Cancer: No Hx Cardiac Disorders: No Hx Congestive Heart Failure: No Hx Hypertension: Yes (noncompliant with meds) Hx Hypercholesterolemia: No Hx Pacemaker: No HX Cerebrovascular Accident: No Hx Seizures: No Hx Dementia: No Hx Diabetes: Yes (no meds currently) Hx Gastrointestinal Disorders: No Hx Liver Disease: Yes (HEP B (TREATED)) Hx Genitourinary Disorders: No Hx Sexually Transmitted Disorders: Yes (GONORRHEA 1993) Hx Renal Disease (ESRD): No Hx Thyroid Disease: No Hx Human Immunodeficiency Virus (HIV): Yes (states it is not HIV1 or 2 but another kind, no meds CD4 =780 (HIV+ 1993)) Hx Hepatitis C: Yes (not treated) Hx Depression: No Hx Suicide Attempt: No (denies) Hx Bipolar Disorder: No Hx Schizophrenia: No Other Medical History: dry, sensitive skin; flat arches - Patient Surgical History Past Surgical History: Yes Hx Neurologic Surgery: No Hx Cataract Extraction: No Hx Cardiac Surgery: No Hx Lung Surgery: No Hx Breast Surgery: No Hx Breast Biopsy: No Hx Abdominal Surgery: No Hx Appendectomy: Yes (1973) Hx Cholecystectomy: No Hx Genitourinary Surgery: No Hx Section: No Hx Orthopedic Surgery: Yes (right wrist fx repair 1973; right hip replacement in 07/2009) Hx Hysterectomy: No Other Surgical History: left mandible in 1983 Anesthesia Reaction: No - PPD History Previous Implant?: Yes Documented Results: Positive w/o proof Implanted On Prior R Admission?: No Date: 05/11/95 (treated at , [facility]/B6) Results: CXR(-)10/2017 PPD to be Administered?: No - Reproductive History Patient is a Female of Child Bearing Age (11 -55 yrs old): No (male) - Smoking Cessation Smoking history: Current every day smoker Have you smoked in the past 12 months: No Aproximately how many cigarettes per day: 10 If you are a former smoker, when did you quit?: 12/2015 Cigars Per Day: 0 Hx Chewing Tobacco Use: No Initiated information on smoking cessation: Yes 'Breaking Loose' booklet given: 04/24/18 (give on floor) - Substance & Tx. History Hx Alcohol Use: No Hx Substance Use: Yes Substance Use Type: Opiates Hx Substance Use Treatment: Yes (detox, rehab) - Substances Abused roxicodone Route: Injection Frequency: 1-2 times per week Amount used: 120mg Age of first use: 45 Date of Last Use: 04/23/18 percocet Route: Oral Frequency: 3-6 times per week Amount used: eight percocet 10/325 Age of first use: 48 Date of Last Use: 04/22/18 ativan Route: Oral Frequency: 1-2 times per week Amount used: 1mg Age of first use: 50 Date of Last Use: 04/21/18 Family Disease History - Family Disease History Family Disease History: [place]: Mother (, breast cancer), Other: Father ( , chronic alcoholism ), Sister (twin sister- living -ex drug user) Admission Physical Exam [facility] - Vital Signs Vital Signs: Vital Signs - 24 hr 04/24/18 11:16 Temperature 96.2 F L Pulse Rate 120 H Respiratory 20 Rate Blood Pressure 128/99 - Physical General Appearance: Yes: Nourished, Appropriately Dressed, Moderate Distress, Obese, Irritable, Anxious HEENTM: Yes: EOMI, Hearing grossly Normal, Normocephalic, Normal Voice, Pharynx Normal, Other Respiratory: Yes: Normal Breath Sounds, No Respiratory Distress Neck: Yes: No masses,lesions,Nodules, Supple Breast: Yes: Breast Exam Deferred Cardiology: Yes: Regular Rhythm, Regular Rate Abdominal: Yes: Soft Genitourinary: Yes: Hesitency, Dysuria Back: Yes: Normal Inspection Musculoskeletal: Yes: full range of Motion, Gait Steady, Back pain, Muscle Pain Extremities: Yes: Normal Inspection, Non-Tender, Other (mild limp due to hip replacement) Neurological: Yes: Alert, Normal Mood/Affect, Normal Response Integumentary: Yes: Normal Color, Warm, [place] (left arm - no abscess noted), Other (grape size keloid left nasal fold) Lymphatic: Yes: Within Normal Limits - Addiitonal Findings: dgh=420 - Diagnostic (1) Opioid dependence with withdrawal Current Visit: Yes Status: Acute (2) HIV (human immunodeficiency virus infection) Current Visit: Yes Status: Chronic Comment: non type 1 or type 2 - (3) COPD (chronic obstructive pulmonary disease) Current Visit: Yes Status: Chronic Qualifiers: COPD type: emphysema Emphysema type: unspecified Qualified Code(s): J43.9 - Emphysema, unspecified (4) Hepatitis C Current Visit: Yes Status: Chronic Qualifiers: Viral hepatitis chronicity: chronic Hepatic coma status: without hepatic coma Qualified Code(s): B18.2 - Chronic viral hepatitis C (5) History of hip replacement, total Current Visit: Yes Status: Chronic Qualifiers: Laterality: right Qualified Code(s): Z96.641 - Presence of right artificial hip joint (6) Nicotine dependence Current Visit: Yes Status: Chronic (7) Sensitive skin Current Visit: Yes Status: Chronic (8) Diabetes mellitus Current Visit: Yes Status: Acute Qualifiers: Diabetes mellitus type: type 2 Diabetes mellitus note teller insulin use: without fdc use Diabetes mellitus complication status: with hyperglycemia Qualified Code(s): E11.65 - Type 2 diabetes mellitus with hyperglycemia Cleared for Admission BHS - Detox or Rehab [facility] Level of Care: Medically Managed Detox Regimen/Protocol: Methadone S Breath Alcohol Content Breath Alcohol Content: 0 Urine Drug Screen - Results Drug Screen Negative: No Urine Drug Screen Results: BZO-Benzodiazepines, OXY-Oxycodone
[2018-04-24] MEDS ORDERED: guaiFENesin/D-METHORPHAN HB 10 ML UNIT-DOSE CUPS PO PRN (11:56)
[2018-04-24] MEDS ORDERED: MAG HYDROX/AL HYDROX/SIMETH 30 ML UNIT-DOSE CUP PO PRN (11:56)
[2018-04-24] MEDS ORDERED: P-EPHED 60MG/TRIPROLIDI 2.5MG TABLET PO PRN (11:56)
[2018-04-24] MEDS ORDERED: IBUPROFEN 400 MG TABLET (FP) PO PRN (11:56)
[2018-04-24] MEDS ORDERED: ACETAMINOPHEN 325 MG TABLET (FP) PO PRN (11:56)
[2018-04-24] MEDS ORDERED: MAGNESIUM CITRATE 300 ML BOTTLE PO PRN (11:56)
[2018-04-24] MEDS ORDERED: LOPERAMIDE HCL 2 MG CAPSULE PO PRN (11:56)
[2018-04-24] MEDS ORDERED: MAGNESIUM HYDROX 2400MG/30ML ORAL SUSPENSION 30 ML CUP PO PRN (11:56)
[2018-04-24] MEDS ORDERED: MENTHOL/PHENOL 1 EACH UD MM PRN (11:56)
[2018-04-24] MEDS ORDERED: COLLOIDAL OATMEAL 1 BAR EACH TP PRN (11:58)
[2018-04-24] MEDS ORDERED: METHADONE HCL 10 MG TABLET (FOR DETOX USE ONLY) PO ONE ×2 (13:00→23:00)
[2018-04-24] MEDS ORDERED: INSULIN (NOVOLOG) ASPART 100 UNITS/ML 10ML VIAL SQ ONE (13:44)
[2018-04-24] MEDS ORDERED: INSULIN SLIDING SCALE (NOVOLOG) 1 VIAL SQ ONE (13:59)
[2018-04-24] MEDS: INSULIN SLIDING SCALE (NOVOLOG) 1 VIAL SQ SCH ×2 (17:30→22:26)
[2018-04-24 19:00] LABS: URINE APPEARANCE CLEAR; URINE BILIRUBIN NEGATIVE (<2.0 mg/dL); URINE COLOR YELLOW; URINE GLUCOSE (UA) 3+ (NEGATIVE); URINE KETONE NEGATIVE (NEGATIVE); URINE LEUK ESTERASE NEGATIVE (NEGATIVE); URINE NITRITE NEGATIVE (NEGATIVE); URINE PROTEIN NEGATIVE (NEGATIVE)
[2018-04-24] MEDS ORDERED: MELATONIN 5 MG TABLETS PO PRN (22:00)
[2018-04-24] MEDS: diazePAM 5 MG TABLET PO PRN (22:26)
[2018-04-24] MEDS: THIAMINE HCL 100 MG TABLET (FP) PO SCH (22:26)
[2018-04-25] MEDS: diazePAM 5 MG TABLET PO PRN (03:46)
[2018-04-25] MEDS ORDERED: INSULIN SLIDING SCALE (NOVOLOG) 1 VIAL SQ ONE (05:29)
[2018-04-25] MEDS: INSULIN SLIDING SCALE (NOVOLOG) 1 VIAL SQ SCH ×4 (06:53→22:45)
[2018-04-25] MEDS ORDERED: METHADONE HCL 10 MG TABLET (FOR DETOX USE ONLY) PO ONE (10:00)
[2018-04-25] MEDS: PRENATAL VITAMINS W/ FOLIC ACID TABLET (FP) PO SCH (10:11)
[2018-04-25 10:45] LABS: HEMATOCRIT 43.3 % (35.4-49); HEMOGLOBIN 13.3 GM/dL (11.7-16.9); MCH 24.7 pg (25.7-33.7); MCHC 30.8 g/dl (32.0-35.9); MEAN CELL VOLUME 80.2 fl (80-96); MEAN PLT VOLUME 10.8 fl (7.5-11.1); PLATELET COUNT 148 K/MM3 (134-434); RDW 16.8 % (11.9-15.9); WHITE BLOOD COUNT 13.5 K/mm3 (4.0-10.0)
[2018-04-25 10:56] LABS: ALBUMIN 3.2 g/dl (3.4-5.0); ALK PHOS 233 U/L (45-117); ANION GAP 10 MMOL/L (8-16); BILIRUBIN,TOTAL 0.6 mg/dL (0.2-1); BLOOD UREA NITROGEN 18 mg/dL (7-18); CALCIUM 7.9 mg/dL (8.5-10.1); CHLORIDE 103 mmol/L (98-107); CO2 24 mmol/L (21-32); CREATININE 0.8 mg/dL (0.55-1.3); GLUCOSE,RANDOM 265 mg/dL (74-106); SGOT/AST 58 U/L (15-37); SGPT/ALT 99 U/L (13-61); SODIUM 136 mmol/L (136-145); TOT PROT 7.1 g/dl (6.4-8.2)
[2018-04-25] MEDS: BACITRACIN 15 GM TUBE TOPICAL OINTMENT TP SCH ×2 (11:19→22:48)
[2018-04-25] MEDS ORDERED: metFORMIN HCL 500 MG TABLET (FP) PO ONE (17:22)
--- NOTE | 2018-04-25 17:33 | PN ---
BHS COWS - Scale Resting Pulse: 2= [place] 101-120 Sweatin= Chills/Flushing Restless Observation: 3= Extraneous Movement Pupil Size: 0= Normal to Room Light Bone or Joint Aches: 2= Severe Diffuse Aches Runny Nose/ Eye Tearin= Runny Nose/Eyes GI Upset > 30mins: 3= Vomiting/Diarrhea Tremor Observation of Outstretched Hands: 2= Slight Tremor Visible Yawning Observation: 1= 1-2x During Session Anxiety or Irritability: 2=Irritable/Anxious Goose Flesh Skin: 0=Smooth Skin COWS Score: 18 BHS Progress Note (SOAP) Subjective: Joint and back pain, sweating, chills, tremor, interrupted sleep, agitation. Patient reports pulling out toenails from big toes because they were hanging out. Objective: 04/25/18 17:30 Last Vital Signs Temp Pulse Resp BP Pulse Ox 97.2 F L 101 H 156 H 147/83 04/25/18 13:40 04/25/18 13:40 04/25/18 13:40 04/25/18 13:40 Resp: 156 (charting error, to be corrected) Elevated b/p noted (denies htn) Laboratory Tests 04/24/18 04/24/18 04/24/18 12:44 16:13 16:58 WBC RBC Hgb Hct MCV MCH MCHC RDW Plt Count MPV Platelet Comment Sodium Potassium Chloride Carbon Dioxide Anion Gap BUN Creatinine Creat Clearance w eGFR POC Glucometer 372 195 Random Glucose Calcium Total Bilirubin AST ALT Alkaline Phosphatase Total Protein Albumin Urine Color Yellow Urine Appearance Clear Urine pH 5.0 D Ur Specific [place] 1.033 Urine Protein Negative Urine Glucose (UA) 3+ H Urine Ketones Negative Urine Blood Negative Urine Nitrite Negative Urine Bilirubin Negative Urine Urobilinogen 2.0 Ur Leukocyte Esterase Negative RPR Titer 04/24/18 04/25/18 04/25/18 21:51 05:27 07:30 WBC 13.5 H RBC 5.40 Hgb 13.3 Hct 43.3 MCV 80.2 MCH 24.7 L MCHC 30.8 L RDW 16.8 H Plt Count 148 MPV 10.8 Platelet Comment No clumping noted Sodium Potassium Chloride Carbon Dioxide Anion Gap BUN Creatinine Creat Clearance w eGFR POC Glucometer 324 253 Random Glucose Calcium Total Bilirubin AST ALT Alkaline Phosphatase Total Protein Albumin Urine Color Urine Appearance Urine pH Ur Specific [place] Urine Protein Urine Glucose (UA) Urine Ketones Urine Blood Urine Nitrite Urine Bilirubin Urine Urobilinogen Ur Leukocyte Esterase RPR Titer 04/25/18 04/25/18 04/25/18 07:30 07:30 10:58 WBC RBC Hgb Hct MCV MCH MCHC RDW Plt Count MPV Platelet Comment Sodium 136 Potassium 4.0 Chloride 103 Carbon Dioxide 24 Anion Gap 10 BUN 18 Creatinine 0.8 Creat Clearance w eGFR > 60 POC Glucometer 350 Random Glucose 265 H Calcium 7.9 L Total Bilirubin 0.6 AST 58 H ALT 99 H Alkaline Phosphatase 233 H Total Protein 7.1 Albumin 3.2 L Urine Color Urine Appearance Urine pH Ur Specific [place] Urine Protein Urine Glucose (UA) Urine Ketones Urine Blood Urine Nitrite Urine Bilirubin Urine Urobilinogen Ur Leukocyte Esterase RPR Titer Nonreactive Labs reviewed: Ca 7.9, wbc 13.5, alk phos 233, UA shows 3+ glucose, elevated glucose due to DMT2 Assessment: 04/25/18 17:32 Withdrawal symptoms Noted with leukocytosis, hypocalcemia, elevated alkaline phosphatase, glycosuria Plan: Continue detox Leukocytosis: asymptomatic, repeat CBC Hypocalcemia: start calcium carbonate 650mg PO daily, repeat serum calcium in couple days Elevated alkaline phosphatase: repeat alk phos Glycosuria: encouraged PO water intake
[2018-04-25] MEDS: CALCIUM CARBONATE 650 MG TABLET PO SCH (20:28)
[2018-04-25] MEDS: THIAMINE HCL 100 MG TABLET (FP) PO SCH (22:48)
[2018-04-26] MEDS: INSULIN SLIDING SCALE (NOVOLOG) 1 VIAL SQ SCH ×4 (06:36→21:09)
[2018-04-26] MEDS: metFORMIN HCL 500 MG TABLET (FP) PO SCH ×2 (06:36→17:00)
[2018-04-26] MEDS ORDERED: INSULIN SLIDING SCALE (NOVOLOG) 1 VIAL SQ ONE (06:58)
[2018-04-26] MEDS ORDERED: METHADONE HCL 5 MG TABLET (FOR DETOX USE ONLY) PO ONE (10:00)
[2018-04-26 10:06] LABS: BASO % 0.2 % (0-2.0); EOS % 0.4 % (0-4.5); HEMATOCRIT 40.1 % (35.4-49); HEMOGLOBIN 13.2 GM/dL (11.7-16.9); LYMPH % 15.3 % (8-40); MCH 26.2 pg (25.7-33.7); MCHC 32.9 g/dl (32.0-35.9); MEAN CELL VOLUME 79.5 fl (80-96); MEAN PLT VOLUME 10.6 fl (7.5-11.1); MONO % 16.1 % (3.8-10.2); PLATELET COUNT 134 K/MM3 (134-434); RBC 5.04 M/mm3 (4.00-5.60); RDW 16.6 % (11.9-15.9); WHITE BLOOD COUNT 7.1 K/mm3 (4.0-10.0)
[2018-04-26] MEDS: PRENATAL VITAMINS W/ FOLIC ACID TABLET (FP) PO SCH (10:18)
[2018-04-26] MEDS: BACITRACIN 15 GM TUBE TOPICAL OINTMENT TP SCH ×2 (10:18→21:09)
[2018-04-26] MEDS: CALCIUM CARBONATE 650 MG TABLET PO SCH (11:59)
--- NOTE | 2018-04-26 13:32 | PN ---
BHS COWS - Scale Resting Pulse: 1= [place] 81-100 (manual count ap = 92) Sweatin= Chills/Flushing Restless Observation: 1= Difficult to Sit Still Pupil Size: 1= Pupils >than Normal Bone or Joint Aches: 2= Severe Diffuse Aches Runny Nose/ Eye Tearin= Nasal Congestion GI Upset > 30mins: 2= Nausea/Diarrhea Tremor Observation of Outstretched Hands: 1= Tremor [place], Not Seen Yawning Observation: 2= >3x During Session Anxiety or Irritability: 1=Feels Anxious/Irritable Goose Flesh Skin: 0=Smooth Skin COWS Score: 13 S Progress Note (SOAP) Subjective: body aches joints pain tremor social with peers in day room history of asthma and hypertension and diabetes Objective: 04/26/18 13:56 Vital Signs Temperature 98.5 F 04/26/18 13:07 Pulse Rate 112 H 04/26/18 13:07 Respiratory Rate 18 04/26/18 13:07 Blood Pressure 145/92 04/26/18 13:07 O2 Sat by Pulse Oximetry (%) Laboratory Last Values WBC 7.1 K/mm3 (4.0-10.0) 04/26/18 07:00 RBC 5.04 M/mm3 (4.00-5.60) 04/26/18 07:00 Hgb 13.2 GM/dL (11.7-16.9) 04/26/18 07:00 Hct 40.1 % (35.4-49) 04/26/18 07:00 MCV 79.5 fl (80-96) L 04/26/18 07:00 MCH 26.2 pg (25.7-33.7) 04/26/18 07:00 MCHC 32.9 g/dl (32.0-35.9) 04/26/18 07:00 RDW 16.6 % (11.9-15.9) H 04/26/18 07:00 Plt Count 134 K/MM3 (134-434) 04/26/18 07:00 MPV 10.6 fl (7.5-11.1) 04/26/18 07:00 Absolute Neuts (auto) 4.8 K/mm3 (1.5-8.0) 04/26/18 07:00 Neutrophils % 68.0 % (42.8-82.8) D 04/26/18 07:00 Lymphocytes % 15.3 % (8-40) D 04/26/18 07:00 Monocytes % 16.1 % (3.8-10.2) H D 04/26/18 07:00 Eosinophils % 0.4 % (0-4.5) D 04/26/18 07:00 Basophils % 0.2 % (0-2.0) 04/26/18 07:00 Nucleated RBC % 0 % (0-0) 04/26/18 07:00 Platelet Comment No clumping noted 04/25/18 07:30 Sodium 136 mmol/L (136-145) 04/25/18 07:30 Potassium 4.0 mmol/L (3.5-5.1) 04/25/18 07:30 Chloride 103 mmol/L (98-107) 04/25/18 07:30 Carbon Dioxide 24 mmol/L (21-32) 04/25/18 07:30 Anion Gap 10 MMOL/L (8-16) 04/25/18 07:30 BUN 18 mg/dL (7-18) 04/25/18 07:30 Creatinine 0.8 mg/dL (0.55-1.3) 04/25/18 07:30 Creat Clearance w eGFR > 60 (>60) 04/25/18 07:30 POC Glucometer 273 UNITS (80-120) 04/26/18 11:56 Random Glucose 265 mg/dL (74-106) H 04/25/18 07:30 Calcium 7.9 mg/dL (8.5-10.1) L 04/25/18 07:30 Total Bilirubin 0.6 mg/dL (0.2-1) 04/25/18 07:30 AST 58 U/L (15-37) H 04/25/18 07:30 ALT 99 U/L (13-61) H 04/25/18 07:30 Alkaline Phosphatase 227 U/L (45-117) H 04/26/18 07:00 Total Protein 7.1 g/dl (6.4-8.2) 04/25/18 07:30 Albumin 3.2 g/dl (3.4-5.0) L 04/25/18 07:30 Urine Color Yellow 04/24/18 16:13 Urine Appearance Clear 04/24/18 16:13 Urine pH 5.0 (5.0-8.0) D 04/24/18 16:13 Ur Specific [place] 1.033 (1.010-1.035) 04/24/18 16:13 Urine Protein Negative (NEGATIVE) 04/24/18 16:13 Urine Glucose (UA) 3+ (NEGATIVE) H 04/24/18 16:13 Urine Ketones Negative (NEGATIVE) 04/24/18 16:13 Urine Blood Negative (NEGATIVE) 04/24/18 16:13 Urine Nitrite Negative (NEGATIVE) 04/24/18 16:13 Urine Bilirubin Negative (<2.0 mg/dL) 04/24/18 16:13 Urine Urobilinogen 2.0 mg/dL (0.2-1.0) 04/24/18 16:13 Ur Leukocyte Esterase Negative (NEGATIVE) 04/24/18 16:13 RPR Titer Nonreactive (NONREACTIVE) 04/25/18 07:30 lab noted low C++ Assessment: 04/26/18 13:56 withdrawal sx Plan: continue detox
[2018-04-26] MEDS ORDERED: ALBUTEROL SO4 8 GM HFA INHALER IH PRN (13:33)
[2018-04-26] MEDS: amLODIPine BESYLATE 10 MG TABLET (FP) PO SCH (14:56)
[2018-04-26] MEDS: diazePAM 5 MG TABLET PO PRN (21:09)
[2018-04-26] MEDS: THIAMINE HCL 100 MG TABLET (FP) PO SCH (21:09)
[2018-04-27] MEDS ORDERED: INSULIN SLIDING SCALE (NOVOLOG) 1 VIAL SQ ONE (06:00)
[2018-04-27] MEDS: metFORMIN HCL 500 MG TABLET (FP) PO SCH ×2 (06:14→17:16)
[2018-04-27] MEDS: INSULIN SLIDING SCALE (NOVOLOG) 1 VIAL SQ SCH ×4 (07:37→22:08)
[2018-04-27] MEDS ORDERED: METHADONE HCL 5 MG TABLET (FOR DETOX USE ONLY) PO ONE (10:00)
[2018-04-27] MEDS: PRENATAL VITAMINS W/ FOLIC ACID TABLET (FP) PO SCH (10:13)
[2018-04-27] MEDS: diazePAM 5 MG TABLET PO PRN (10:13)
[2018-04-27] MEDS: BACITRACIN 15 GM TUBE TOPICAL OINTMENT TP SCH ×2 (10:14→22:08)
[2018-04-27] MEDS: amLODIPine BESYLATE 10 MG TABLET (FP) PO SCH (10:15)
[2018-04-27] MEDS: CALCIUM CARBONATE 650 MG TABLET PO SCH (10:15)
--- NOTE | 2018-04-27 14:37 | PN ---
BHS Progress Note (SOAP) Subjective: body aches tremor muscle cramping sweat restlessness dry skin Objective: 04/27/18 14:35 Vital Signs Temperature 99.2 F 04/27/18 09:11 Pulse Rate 97 H 04/27/18 09:11 Respiratory Rate 18 04/27/18 09:11 Blood Pressure 133/84 04/27/18 09:11 O2 Sat by Pulse Oximetry (%) Laboratory Last Values WBC 7.1 K/mm3 (4.0-10.0) 04/26/18 07:00 RBC 5.04 M/mm3 (4.00-5.60) 04/26/18 07:00 Hgb 13.2 GM/dL (11.7-16.9) 04/26/18 07:00 Hct 40.1 % (35.4-49) 04/26/18 07:00 MCV 79.5 fl (80-96) L 04/26/18 07:00 MCH 26.2 pg (25.7-33.7) 04/26/18 07:00 MCHC 32.9 g/dl (32.0-35.9) 04/26/18 07:00 RDW 16.6 % (11.9-15.9) H 04/26/18 07:00 Plt Count 134 K/MM3 (134-434) 04/26/18 07:00 MPV 10.6 fl (7.5-11.1) 04/26/18 07:00 Absolute Neuts (auto) 4.8 K/mm3 (1.5-8.0) 04/26/18 07:00 Neutrophils % 68.0 % (42.8-82.8) D 04/26/18 07:00 Lymphocytes % 15.3 % (8-40) D 04/26/18 07:00 Monocytes % 16.1 % (3.8-10.2) H D 04/26/18 07:00 Eosinophils % 0.4 % (0-4.5) D 04/26/18 07:00 Basophils % 0.2 % (0-2.0) 04/26/18 07:00 Nucleated RBC % 0 % (0-0) 04/26/18 07:00 Platelet Comment No clumping noted 04/25/18 07:30 Sodium 136 mmol/L (136-145) 04/25/18 07:30 Potassium 4.0 mmol/L (3.5-5.1) 04/25/18 07:30 Chloride 103 mmol/L (98-107) 04/25/18 07:30 Carbon Dioxide 24 mmol/L (21-32) 04/25/18 07:30 Anion Gap 10 MMOL/L (8-16) 04/25/18 07:30 BUN 18 mg/dL (7-18) 04/25/18 07:30 Creatinine 0.8 mg/dL (0.55-1.3) 04/25/18 07:30 Creat Clearance w eGFR > 60 (>60) 04/25/18 07:30 POC Glucometer 241 UNITS (80-120) 04/27/18 11:46 Random Glucose 265 mg/dL (74-106) H 04/25/18 07:30 Calcium 7.9 mg/dL (8.5-10.1) L 04/25/18 07:30 Total Bilirubin 0.6 mg/dL (0.2-1) 04/25/18 07:30 AST 58 U/L (15-37) H 04/25/18 07:30 ALT 99 U/L (13-61) H 04/25/18 07:30 Alkaline Phosphatase 227 U/L (45-117) H 04/26/18 07:00 Total Protein 7.1 g/dl (6.4-8.2) 04/25/18 07:30 Albumin 3.2 g/dl (3.4-5.0) L 04/25/18 07:30 Urine Color Yellow 04/24/18 16:13 Urine Appearance Clear 04/24/18 16:13 Urine pH 5.0 (5.0-8.0) D 04/24/18 16:13 Ur Specific [place] 1.033 (1.010-1.035) 04/24/18 16:13 Urine Protein Negative (NEGATIVE) 04/24/18 16:13 Urine Glucose (UA) 3+ (NEGATIVE) H 04/24/18 16:13 Urine Ketones Negative (NEGATIVE) 04/24/18 16:13 Urine Blood Negative (NEGATIVE) 04/24/18 16:13 Urine Nitrite Negative (NEGATIVE) 04/24/18 16:13 Urine Bilirubin Negative (<2.0 mg/dL) 04/24/18 16:13 Urine Urobilinogen 2.0 mg/dL (0.2-1.0) 04/24/18 16:13 Ur Leukocyte Esterase Negative (NEGATIVE) 04/24/18 16:13 RPR Titer Nonreactive (NONREACTIVE) 04/25/18 07:30 lab noted low Ca++ continue ca++ supplement 04/27/18 14:36 Assessment: 04/27/18 14:37 withdrawal sx 04/27/18 14:37 dry skin Plan: continue detox encourage provide aveeno soap eucerin cream
[2018-04-27] MEDS: MINERAL OIL/PETROLAT/WATER TOPICAL CREAM 113 GM JAR TP SCH ×2 (15:00→22:07)
[2018-04-27] MEDS: THIAMINE HCL 100 MG TABLET (FP) PO SCH (22:09)
[2018-04-28] MEDS: metFORMIN HCL 500 MG TABLET (FP) PO SCH ×2 (06:09→19:30)
[2018-04-28] MEDS: INSULIN SLIDING SCALE (NOVOLOG) 1 VIAL SQ SCH ×4 (06:29→22:50)
[2018-04-28] MEDS: amLODIPine BESYLATE 10 MG TABLET (FP) PO SCH (09:15)
[2018-04-28] MEDS: PRENATAL VITAMINS W/ FOLIC ACID TABLET (FP) PO SCH (09:15)
[2018-04-28] MEDS: CALCIUM CARBONATE 650 MG TABLET PO SCH (09:16)
[2018-04-28] MEDS: BACITRACIN 15 GM TUBE TOPICAL OINTMENT TP SCH ×2 (09:16→22:53)
[2018-04-28] MEDS ORDERED: METHADONE HCL 10 MG TABLET (FOR DETOX USE ONLY) PO ONE (10:00)
--- NOTE | 2018-04-28 11:03 | PN ---
[facility] Progress Note Note: PATIENT CONTINUES WITH DETOX REGIMEN. C/O INTERRUPTED SLEEP, MILD BODY ACHES. Vital Signs Temperature 98.2 F 04/28/18 09:02 Pulse Rate 110 H 04/28/18 09:02 Respiratory Rate 18 04/28/18 09:02 Blood Pressure 134/80 04/28/18 09:02 O2 Sat by Pulse Oximetry (%) Laboratory Tests 04/24/18 04/24/18 04/24/18 12:44 16:13 16:58 WBC RBC Hgb Hct MCV MCH MCHC RDW Plt Count MPV Absolute Neuts (auto) Neutrophils % Lymphocytes % Monocytes % Eosinophils % Basophils % Nucleated RBC % Platelet Comment Sodium Potassium Chloride Carbon Dioxide Anion Gap BUN Creatinine Creat Clearance w eGFR POC Glucometer 372 195 Random Glucose Calcium Total Bilirubin AST ALT Alkaline Phosphatase Total Protein Albumin Urine Color Yellow Urine Appearance Clear Urine pH 5.0 D Ur Specific [place] 1.033 Urine Protein Negative Urine Glucose (UA) 3+ H Urine Ketones Negative Urine Blood Negative Urine Nitrite Negative Urine Bilirubin Negative Urine Urobilinogen 2.0 Ur Leukocyte Esterase Negative RPR Titer 04/24/18 04/25/18 04/25/18 21:51 05:27 07:30 WBC 13.5 H RBC 5.40 Hgb 13.3 Hct 43.3 MCV 80.2 MCH 24.7 L MCHC 30.8 L RDW 16.8 H Plt Count 148 MPV 10.8 Absolute Neuts (auto) Neutrophils % Lymphocytes % Monocytes % Eosinophils % Basophils % Nucleated RBC % Platelet Comment No clumping noted Sodium Potassium Chloride Carbon Dioxide Anion Gap BUN Creatinine Creat Clearance w eGFR POC Glucometer 324 253 Random Glucose Calcium Total Bilirubin AST ALT Alkaline Phosphatase Total Protein Albumin Urine Color Urine Appearance Urine pH Ur Specific [place] Urine Protein Urine Glucose (UA) Urine Ketones Urine Blood Urine Nitrite Urine Bilirubin Urine Urobilinogen Ur Leukocyte Esterase RPR Titer 04/25/18 04/25/18 04/25/18 07:30 07:30 10:58 WBC RBC Hgb Hct MCV MCH MCHC RDW Plt Count MPV Absolute Neuts (auto) Neutrophils % Lymphocytes % Monocytes % Eosinophils % Basophils % Nucleated RBC % Platelet Comment Sodium 136 Potassium 4.0 Chloride 103 Carbon Dioxide 24 Anion Gap 10 BUN 18 Creatinine 0.8 Creat Clearance w eGFR > 60 POC Glucometer 350 Random Glucose 265 H Calcium 7.9 L Total Bilirubin 0.6 AST 58 H ALT 99 H Alkaline Phosphatase 233 H Total Protein 7.1 Albumin 3.2 L Urine Color Urine Appearance Urine pH Ur Specific [place] Urine Protein Urine Glucose (UA) Urine Ketones Urine Blood Urine Nitrite Urine Bilirubin Urine Urobilinogen Ur Leukocyte Esterase RPR Titer Nonreactive 04/25/18 04/25/18 04/26/18 16:27 22:44 05:30 WBC RBC Hgb Hct MCV MCH MCHC RDW Plt Count MPV Absolute Neuts (auto) Neutrophils % Lymphocytes % Monocytes % Eosinophils % Basophils % Nucleated RBC % Platelet Comment Sodium Potassium Chloride Carbon Dioxide Anion Gap BUN Creatinine Creat Clearance w eGFR POC Glucometer 183 287 167 Random Glucose Calcium Total Bilirubin AST ALT Alkaline Phosphatase Total Protein Albumin Urine Color Urine Appearance Urine pH Ur Specific [place] Urine Protein Urine Glucose (UA) Urine Ketones Urine Blood Urine Nitrite Urine Bilirubin Urine Urobilinogen Ur Leukocyte Esterase RPR Titer 04/26/18 04/26/18 04/26/18 07:00 07:00 11:56 WBC 7.1 RBC 5.04 Hgb 13.2 Hct 40.1 MCV 79.5 L MCH 26.2 MCHC 32.9 RDW 16.6 H Plt Count 134 MPV 10.6 Absolute Neuts (auto) 4.8 Neutrophils % 68.0 D Lymphocytes % 15.3 D Monocytes % 16.1 H D Eosinophils % 0.4 D Basophils % 0.2 Nucleated RBC % 0 Platelet Comment Sodium Potassium Chloride Carbon Dioxide Anion Gap BUN Creatinine Creat Clearance w eGFR POC Glucometer 273 Random Glucose Calcium Total Bilirubin AST ALT Alkaline Phosphatase 227 H Total Protein Albumin Urine Color Urine Appearance Urine pH Ur Specific [place] Urine Protein Urine Glucose (UA) Urine Ketones Urine Blood Urine Nitrite Urine Bilirubin Urine Urobilinogen Ur Leukocyte Esterase RPR Titer 04/26/18 04/26/18 04/27/18 16:32 20:58 05:44 WBC RBC Hgb Hct MCV MCH MCHC RDW Plt Count MPV Absolute Neuts (auto) Neutrophils % Lymphocytes % Monocytes % Eosinophils % Basophils % Nucleated RBC % Platelet Comment Sodium Potassium Chloride Carbon Dioxide Anion Gap BUN Creatinine Creat Clearance w eGFR POC Glucometer 176 262 179 Random Glucose Calcium Total Bilirubin AST ALT Alkaline Phosphatase Total Protein Albumin Urine Color Urine Appearance Urine pH Ur Specific [place] Urine Protein Urine Glucose (UA) Urine Ketones Urine Blood Urine Nitrite Urine Bilirubin Urine Urobilinogen Ur Leukocyte Esterase RPR Titer 12/04/27/18 04/27/18 11:46 16:32 20:36 WBC RBC Hgb Hct MCV MCH MCHC RDW Plt Count MPV Absolute Neuts (auto) Neutrophils % Lymphocytes % Monocytes % Eosinophils % Basophils % Nucleated RBC % Platelet Comment Sodium Potassium Chloride Carbon Dioxide Anion Gap BUN Creatinine Creat Clearance w eGFR POC Glucometer 241 185 195 Random Glucose Calcium Total Bilirubin AST ALT Alkaline Phosphatase Total Protein Albumin Urine Color Urine Appearance Urine pH Ur Specific [place] Urine Protein Urine Glucose (UA) Urine Ketones Urine Blood Urine Nitrite Urine Bilirubin Urine Urobilinogen Ur Leukocyte Esterase RPR Titer 04/28/18 05:29 WBC RBC Hgb Hct MCV MCH MCHC RDW Plt Count MPV Absolute Neuts (auto) Neutrophils % Lymphocytes % Monocytes % Eosinophils % Basophils % Nucleated RBC % Platelet Comment Sodium Potassium Chloride Carbon Dioxide Anion Gap BUN Creatinine Creat Clearance w eGFR POC Glucometer 145 Random Glucose Calcium Total Bilirubin AST ALT Alkaline Phosphatase Total Protein Albumin Urine Color Urine Appearance Urine pH Ur Specific [place] Urine Protein Urine Glucose (UA) Urine Ketones Urine Blood Urine Nitrite Urine Bilirubin Urine Urobilinogen Ur Leukocyte Esterase RPR Titer PE: ALERT AND ORIENTED X 3 SKIN WARM AND DRY CAR S1S2 RESP CTA BL EXT FULL ROM, AMB AD LYNN A/P WITHDRAWAL SX FOR D/C TO REHAB IN AM CONTINUE DETOX ENCOURAGE ORAL FLUIDS CONTINUE TO MONITOR CLINICALLY
[2018-04-28 21:49] VITALS: BP 132/80; PULSE 107; TEMP 99.6
[2018-04-28] MEDS: THIAMINE HCL 100 MG TABLET (FP) PO SCH (22:53)
[2018-04-28] MEDS: MINERAL OIL/PETROLAT/WATER TOPICAL CREAM 113 GM JAR TP SCH (22:53)
[2018-04-29] MEDS ORDERED: METHADONE HCL 5 MG TABLET (FOR DETOX USE ONLY) PO ONE (06:00)
[2018-04-29] MEDS: INSULIN SLIDING SCALE (NOVOLOG) 1 VIAL SQ SCH (07:01)
[2018-04-29] MEDS: metFORMIN HCL 500 MG TABLET (FP) PO SCH (07:01)
--- NOTE | 2018-04-29 13:11 | DS ---
[facility] Detox Discharge Summary Admission Date: 04/24/18 Discharge Date: 04/29/18 - History Present History: Opioid Dependence - Physical Exam Results Vital Signs: Vital Signs Temperature 99.6 F 04/28/18 21:47 Pulse Rate 107 H 04/28/18 21:47 Respiratory Rate 18 04/29/18 03:30 Blood Pressure 132/80 04/28/18 21:47 O2 Sat by Pulse Oximetry (%) Pertinent Admission Physical Exam Findings: PATIENT COMPLETED DETOX WITHOUT ADVERSE EVENT. PATIENT MEDICALLY STABLE AND DENIES SI/HI. PATIENT ENCOURAGED TO ATTEND GROUP MEETINGS TO PREVENT RELAPSE AND TO FOLLOW UP WITH PCP WITHIN ONE WEEK OF D/C. PATIENT GIVEN D/C INSTRUCTION BY STAFF. - Treatment Hospital Course: Detox Protocol Followed, Detoxed Safely, Responded well, Discharged Condition Good - Medication Discharge Medications: Ambulatory Orders Albuterol Sulfate Inhaler - [Ventolin Hfa Inhaler -] 2 inh PO Q4H 04/26/18 Amlodipine Besylate [Norvasc -] 10 mg PO DAILY 04/26/18 - Diagnosis (1) Opioid dependence with withdrawal Status: Resolved - AMA Did Patient Leave Against Medical Advice: No
== END 2018-04-29 09:10 | disposition home or self-care (01) | DRG 773 ==
LOC: YASAS 10:53 → Y3N 12:42
PROC: HZ2ZZZZ Detoxification Services for Substance Abuse Treatment (ICD-10-PCS; principal; 2018-04-27)
DX: F11.23 Opioid dependence with withdrawal (principal); F17.210 Nicotine dependence, cigarettes, uncomplicated; E11.65 Type 2 diabetes mellitus with hyperglycemia; E83.51 Hypocalcemia; L98.8 Other specified disorders of the skin and subcutaneous tissue; R74.8 Abnormal levels of other serum enzymes; D72.829 Elevated white blood cell count, unspecified; J43.9 Emphysema, unspecified; Z21 Asymptomatic human immunodeficiency virus [HIV] infection status; B18.2 Chronic viral hepatitis C; R81 Glycosuria; L85.3 Xerosis cutis; Z96.641 Presence of right artificial hip joint; Z88.0 Allergy status to penicillin; Z91.14 Patient's other noncompliance with medication regimen; Z87.438 Personal history of other diseases of male genital organs; E66.9 Obesity, unspecified; Z68.29 Body mass index [BMI] 29.0-29.9, adult
CPT/HCPCS: 36415; 80053; 81003; 82962; 84075; 85025; 85027; 86593

== ENCOUNTER 2018-06-03 12:19 | Inpatient (IN) | payer OTHER ==
[2018-06-03 13:17] VITALS: BMI 30.7
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
[2018-06-03] MEDS ORDERED: MAGNESIUM CITRATE 300 ML BOTTLE PO PRN (14:00)
[2018-06-03] MEDS ORDERED: MENTHOL/PHENOL 1 EACH UD MM PRN (14:00)
[2018-06-03] MEDS ORDERED: IBUPROFEN 400 MG TABLET (FP) PO PRN (14:00)
[2018-06-03] MEDS ORDERED: guaiFENesin/D-METHORPHAN HB 10 ML UNIT-DOSE CUPS PO PRN (14:00)
[2018-06-03] MEDS ORDERED: ACETAMINOPHEN 325 MG TABLET (FP) PO PRN (14:00)
[2018-06-03] MEDS ORDERED: MAGNESIUM HYDROX 2400MG/30ML ORAL SUSPENSION 30 ML CUP PO PRN (14:00)
[2018-06-03] MEDS ORDERED: MAG HYDROX/AL HYDROX/SIMETH 30 ML UNIT-DOSE CUP PO PRN (14:00)
[2018-06-03] MEDS ORDERED: P-EPHED 60MG/TRIPROLIDI 2.5MG TABLET PO PRN (14:00)
[2018-06-03] MEDS ORDERED: COLLOIDAL OATMEAL 1 BAR EACH TP PRN (14:04)
[2018-06-03] MEDS ORDERED: METHADONE HCL 10 MG TABLET (FOR DETOX USE ONLY) PO ONE ×2 (17:00→23:00)
[2018-06-03] MEDS: ALBUTEROL SO4 8 GM HFA INHALER IH SCH ×2 (17:39→22:12)
[2018-06-03] MEDS: cloNIDine HCL 0.1 MG TABLET PO PRN (22:11)
[2018-06-03] MEDS: THIAMINE HCL 100 MG TABLET (FP) PO SCH (22:11)
[2018-06-03] MEDS: hydrOXYzine PAMOATE 25 MG CAPSULE (FP) PO PRN (22:14)
[2018-06-04] MEDS: ALBUTEROL SO4 8 GM HFA INHALER IH SCH ×2 (04:14→05:45)
[2018-06-04] MEDS: cloNIDine HCL 0.1 MG TABLET PO PRN ×2 (06:18→22:18)
[2018-06-04] MEDS ORDERED: ALBUTEROL SO4 8 GM HFA INHALER IH PRN (09:43)
[2018-06-04] MEDS ORDERED: METHADONE HCL 10 MG TABLET (FOR DETOX USE ONLY) PO ONE (10:00)
[2018-06-04] MEDS: PRENATAL VITAMINS W/ FOLIC ACID TABLET (FP) PO SCH (10:18)
[2018-06-04 10:44] LABS: ALBUMIN 2.9 g/dl (3.4-5.0); ALK PHOS 258 U/L (45-117); ANION GAP 10 MMOL/L (8-16); BILIRUBIN,TOTAL 0.3 mg/dL (0.2-1); BLOOD UREA NITROGEN 16 mg/dL (7-18); CALCIUM 8.1 mg/dL (8.5-10.1); CHLORIDE 104 mmol/L (98-107); CO2 24 mmol/L (21-32); CREATININE 0.9 mg/dL (0.55-1.3); POTASSIUM 3.9 mmol/L (3.5-5.1); SGOT/AST 53 U/L (15-37); SGPT/ALT 95 U/L (13-61); SODIUM 138 mmol/L (136-145); TOT PROT 6.8 g/dl (6.4-8.2)
[2018-06-04 10:50] LABS: HEMATOCRIT 37.7 % (35.4-49); HEMOGLOBIN 12.5 GM/dL (11.7-16.9); MCH 26.3 pg (25.7-33.7); MCHC 33.1 g/dl (32.0-35.9); MEAN CELL VOLUME 79.5 fl (80-96); MEAN PLT VOLUME 9.9 fl (7.5-11.1); PLATELET COUNT 152 K/MM3 (134-434); RBC 4.74 M/mm3 (4.00-5.60); RDW 15.6 % (11.9-15.9)
[2018-06-04 12:39] LABS: GLUCOSE,RANDOM 313 mg/dL (74-106)
--- NOTE | 2018-06-04 13:16 | PN ---
[facility] COWS - Scale Resting Pulse: 1= [place] 81-100 Sweatin=Flushed/Facial Moisture Restless Observation: 1= Difficult to Sit Still Pupil Size: 0= Normal to Room Light Bone or Joint Aches: 1= Mild Discomfort Runny Nose/ Eye Tearin= Nasal Congestion GI Upset > 30mins: 0= None Tremor Observation of Outstretched Hands: 1= Tremor [place], Not Seen Yawning Observation: 0= None Anxiety or Irritability: 1=Feels Anxious/Irritable Goose Flesh Skin: 3=Piloerection COWS Score: 11 BHS Progress Note (SOAP) Subjective: dry skin sweats interrupted sleep Objective: 06/04/18 13:14 Vital Signs Temperature 98.1 F 06/04/18 09:56 Pulse Rate 88 06/04/18 09:56 Respiratory Rate 18 06/04/18 09:56 Blood Pressure 132/84 06/04/18 09:56 O2 Sat by Pulse Oximetry (%) Laboratory Tests 06/04/18 06/04/18 07:00 07:00 WBC 9.0 RBC 4.74 Hgb 12.5 Hct 37.7 MCV 79.5 L MCH 26.3 MCHC 33.1 RDW 15.6 Plt Count 152 MPV 9.9 Sodium 138 Potassium 3.9 Chloride 104 Carbon Dioxide 24 Anion Gap 10 BUN 16 Creatinine 0.9 Creat Clearance w eGFR > 60 Random Glucose 313 H* Calcium 8.1 L Total Bilirubin 0.3 AST 53 H ALT 95 H Alkaline Phosphatase 258 H Total Protein 6.8 Albumin 2.9 L aaox3 ambulating no acute distress Assessment: 06/04/18 13:14 withdrawal sx Plan: continue detox increase fluids lac hydrin lotion
[2018-06-04] MEDS: AMMONIUM LACTATE 12% LOTION 225 GM BOTTLE TP SCH ×2 (15:27→22:18)
[2018-06-04] MEDS ORDERED: INSULIN (NOVOLOG) ASPART 100 UNITS/ML 10ML VIAL ONE (17:03)
[2018-06-04] MEDS: INSULIN (NOVOLOG) ASPART 100 UNITS/ML 10ML VIAL SQ SCH (17:05)
[2018-06-04] MEDS: THIAMINE HCL 100 MG TABLET (FP) PO SCH (22:18)
[2018-06-04] MEDS: hydrOXYzine PAMOATE 25 MG CAPSULE (FP) PO PRN (22:18)
[2018-06-04] MEDS: MELATONIN 5 MG TABLETS PO PRN (22:18)
[2018-06-05] MEDS: INSULIN (NOVOLOG) ASPART 100 UNITS/ML 10ML VIAL SQ SCH ×3 (07:52→17:26)
[2018-06-05] MEDS ORDERED: METHADONE HCL 5 MG TABLET (FOR DETOX USE ONLY) PO ONE (10:00)
[2018-06-05] MEDS: PRENATAL VITAMINS W/ FOLIC ACID TABLET (FP) PO SCH (11:05)
[2018-06-05] MEDS: AMMONIUM LACTATE 12% LOTION 225 GM BOTTLE TP SCH ×2 (11:06→22:21)
--- NOTE | 2018-06-05 13:54 | PN ---
[facility] COWS - Scale Resting Pulse: 0= [place] 80 or Below Sweatin=Flushed/Facial Moisture Restless Observation: 1= Difficult to Sit Still Pupil Size: 0= Normal to Room Light Bone or Joint Aches: 1= Mild Discomfort Runny Nose/ Eye Tearin= Nasal Congestion GI Upset > 30mins: 2= Nausea/Diarrhea Tremor Observation of Outstretched Hands: 1= Tremor [place], Not Seen Yawning Observation: 0= None Anxiety or Irritability: 2=Irritable/Anxious Goose Flesh Skin: 0=Smooth Skin COWS Score: 10 BHS Progress Note (SOAP) Subjective: Tremors, interrupted sleep and irritability Objective: 06/05/18 13:52 Vital Signs 06/05/18 06/05/18 06:00 09:50 Temperature 97.9 F 97.9 F Pulse Rate 74 85 Respiratory 18 18 Rate Blood Pressure 104/60 148/89 Laboratory Last Values WBC 9.0 K/mm3 (4.0-10.0) 06/04/18 07:00 RBC 4.74 M/mm3 (4.00-5.60) 06/04/18 07:00 Hgb 12.5 GM/dL (11.7-16.9) 06/04/18 07:00 Hct 37.7 % (35.4-49) 06/04/18 07:00 MCV 79.5 fl (80-96) L 06/04/18 07:00 MCH 26.3 pg (25.7-33.7) 06/04/18 07:00 MCHC 33.1 g/dl (32.0-35.9) 06/04/18 07:00 RDW 15.6 % (11.9-15.9) 06/04/18 07:00 Plt Count 152 K/MM3 (134-434) 06/04/18 07:00 MPV 9.9 fl (7.5-11.1) 06/04/18 07:00 Sodium 138 mmol/L (136-145) 06/04/18 07:00 Potassium 3.9 mmol/L (3.5-5.1) 06/04/18 07:00 Chloride 104 mmol/L (98-107) 06/04/18 07:00 Carbon Dioxide 24 mmol/L (21-32) 06/04/18 07:00 Anion Gap 10 MMOL/L (8-16) 06/04/18 07:00 BUN 16 mg/dL (7-18) 06/04/18 07:00 Creatinine 0.9 mg/dL (0.55-1.3) 06/04/18 07:00 Creat Clearance w eGFR > 60 (>60) 06/04/18 07:00 POC Glucometer 150 UNITS (80-120) 06/05/18 11:16 Random Glucose 313 mg/dL (74-106) H* 06/04/18 07:00 Calcium 8.1 mg/dL (8.5-10.1) L 06/04/18 07:00 Total Bilirubin 0.3 mg/dL (0.2-1) 06/04/18 07:00 AST 53 U/L (15-37) H 06/04/18 07:00 ALT 95 U/L (13-61) H 06/04/18 07:00 Alkaline Phosphatase 258 U/L (45-117) H 06/04/18 07:00 Total Protein 6.8 g/dl (6.4-8.2) 06/04/18 07:00 Albumin 2.9 g/dl (3.4-5.0) L 06/04/18 07:00 RPR Titer Nonreactive (NONREACTIVE) 06/04/18 07:00 Labs noted Elevated serum glucose, capillary blood glucose levels in the 150s Assessment: 06/05/18 13:55 Withdrawal sx Plan: Continue detox Continue insulin sliding scale
[2018-06-05] MEDS ORDERED: INSULIN (NOVOLOG) ASPART 100 UNITS/ML 10ML VIAL ONE (16:54)
[2018-06-05] MEDS: THIAMINE HCL 100 MG TABLET (FP) PO SCH (22:21)
[2018-06-05] MEDS: MELATONIN 5 MG TABLETS PO PRN (22:21)
[2018-06-06] MEDS ORDERED: INSULIN (NOVOLOG) ASPART 100 UNITS/ML 10ML VIAL ONE (07:42)
[2018-06-06] MEDS: INSULIN (NOVOLOG) ASPART 100 UNITS/ML 10ML VIAL SQ SCH ×3 (07:46→17:48)
[2018-06-06] MEDS ORDERED: METHADONE HCL 10 MG TABLET (FOR DETOX USE ONLY) PO ONE (10:00)
[2018-06-06] MEDS: PRENATAL VITAMINS W/ FOLIC ACID TABLET (FP) PO SCH (10:17)
[2018-06-06] MEDS: AMMONIUM LACTATE 12% LOTION 225 GM BOTTLE TP SCH ×2 (12:01→23:43)
[2018-06-06] MEDS ORDERED: cloNIDine HCL 0.1 MG TABLET PO PRN (17:37)
--- NOTE | 2018-06-06 17:40 | PN ---
S Progress Note (SOAP) Subjective: Itching, back pain, irritable, joint pain, chills, interrupted sleep Objective: 06/06/18 17:36 Last Vital Signs Temp Pulse Resp BP Pulse Ox 99.7 F H 104 H 18 144/95 06/06/18 14:35 06/06/18 14:35 06/06/18 14:35 06/06/18 14:35 HTN noted (has h/o htn, on prn clonidine) Laboratory Tests 06/04/18 06/04/18 06/04/18 07:00 07:00 07:00 WBC 9.0 RBC 4.74 Hgb 12.5 Hct 37.7 MCV 79.5 L MCH 26.3 MCHC 33.1 RDW 15.6 Plt Count 152 MPV 9.9 Sodium 138 Potassium 3.9 Chloride 104 Carbon Dioxide 24 Anion Gap 10 BUN 16 Creatinine 0.9 Creat Clearance w eGFR > 60 POC Glucometer Random Glucose 313 H* Calcium 8.1 L Total Bilirubin 0.3 AST 53 H ALT 95 H Alkaline Phosphatase 258 H Total Protein 6.8 Albumin 2.9 L RPR Titer Nonreactive 06/04/18 06/05/18 06/05/18 16:37 06:01 11:16 WBC RBC Hgb Hct MCV MCH MCHC RDW Plt Count MPV Sodium Potassium Chloride Carbon Dioxide Anion Gap BUN Creatinine Creat Clearance w eGFR POC Glucometer 158 175 150 Random Glucose Calcium Total Bilirubin AST ALT Alkaline Phosphatase Total Protein Albumin RPR Titer 06/05/18 06/06/18 06/06/18 16:45 05:28 11:57 WBC RBC Hgb Hct MCV MCH MCHC RDW Plt Count MPV Sodium Potassium Chloride Carbon Dioxide Anion Gap BUN Creatinine Creat Clearance w eGFR POC Glucometer 181 336 140 Random Glucose Calcium Total Bilirubin AST ALT Alkaline Phosphatase Total Protein Albumin RPR Titer Labs reviewed Assessment: 06/06/18 17:38 Withdrawal symptoms Plan: Continue detox Encouraged PO water hydration Encouraged adherence to diabetic diet Patient for discharge tomorrow. To follow up with his PCP within 1 week.
[2018-06-06] MEDS: THIAMINE HCL 100 MG TABLET (FP) PO SCH (23:42)
[2018-06-07] MEDS ORDERED: METHADONE HCL 5 MG TABLET (FOR DETOX USE ONLY) PO ONE (06:00)
[2018-06-07] MEDS: INSULIN (NOVOLOG) ASPART 100 UNITS/ML 10ML VIAL SQ SCH (08:03)
--- NOTE | 2018-06-07 09:42 | DS ---
[facility] Detox Discharge Summary Admission Date: 06/03/18 Discharge Date: 06/07/18 - History Present History: Alcohol Dependence, Cocaine Dependence, Opioid Dependence - Physical Exam Results Vital Signs: Vital Signs Temperature 98.6 F 06/06/18 17:39 Pulse Rate 103 H 06/06/18 17:39 Respiratory Rate 18 06/07/18 03:30 Blood Pressure 132/88 06/06/18 17:39 O2 Sat by Pulse Oximetry (%) - Treatment Hospital Course: Detox Protocol Followed, Detoxed Safely, Responded well, Discharged Condition Good, Rehab Referral Accepted - Medication Discharge Medications: Ambulatory Orders Albuterol Sulfate Inhaler - [Ventolin Hfa Inhaler -] 2 inh PO Q4H 04/26/18 - Diagnosis (1) Opioid dependence with withdrawal Current Visit: Yes Status: Chronic (2) Asthma Current Visit: Yes Status: Chronic Qualifiers: Asthma severity: mild Asthma persistence: intermittent Asthma complication type: unspecified Qualified Code(s): J45.20 - Mild intermittent asthma, uncomplicated (3) COPD (chronic obstructive pulmonary disease) Current Visit: Yes Status: Chronic Qualifiers: COPD type: emphysema Emphysema type: unspecified Qualified Code(s): J43.9 - Emphysema, unspecified (4) Cocaine dependence with withdrawal Current Visit: Yes Status: Chronic (5) Diabetes mellitus Current Visit: Yes Status: Chronic Qualifiers: Diabetes mellitus type: type 2 Diabetes mellitus long-term insulin use: 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 Diabetes mellitus complication status: with hyperglycemia Qualified Code(s): E11.65 - Type 2 diabetes mellitus with hyperglycemia (6) Hepatitis C Current Visit: Yes Status: Chronic Qualifiers: Viral hepatitis chronicity: chronic Hepatic coma status: without hepatic coma Qualified Code(s): B18.2 - Chronic viral hepatitis C (7) Hypertension Current Visit: Yes Status: Chronic Qualifiers: Hypertension type: essential hypertension Qualified Code(s): I10 - Essential (primary) hypertension (8) Myopia of left eye Current Visit: No Status: Acute (9) Chronic tachycardia Current Visit: No Status: Chronic (10) HIV (human immunodeficiency virus infection) Current Visit: No Status: Chronic Qualifiers: HIV symptom status: unspecified Qualified Code(s): B20 - Human immunodeficiency virus [HIV] disease (11) History of hip replacement, total Current Visit: No Status: Chronic Qualifiers: Laterality: right Qualified Code(s): Z96.641 - Presence of right artificial hip joint (12) Nicotine dependence Current Visit: Yes Status: Chronic (13) PTSD (post-traumatic stress disorder) Current Visit: No Status: Chronic (14) Anxiety and depression Current Visit: No Status: Suspected (15) Drug-induced mood disorder Current Visit: No Status: Suspected - AMA Did Patient Leave Against Medical Advice: No (pt declined reha; going to see his PCP)
[2018-06-07 09:52] VITALS: BP 148/100; PULSE 102; TEMP 98.2
[2018-06-07] MEDS: PRENATAL VITAMINS W/ FOLIC ACID TABLET (FP) PO SCH (10:04)
[2018-06-07] MEDS: AMMONIUM LACTATE 12% LOTION 225 GM BOTTLE TP SCH (10:05)
== END 2018-06-07 10:49 | disposition home or self-care (01) | DRG 773 ==
LOC: YASAS 12:19 → Y6N 16:12
PROVIDERS: ADMIT Neuromusculoskeletal Medicine & OMM; ATTEND Neuromusculoskeletal Medicine & OMM
PROC: HZ2ZZZZ Detoxification Services for Substance Abuse Treatment (ICD-10-PCS; principal; 2018-06-03)
DX: F11.23 Opioid dependence with withdrawal (principal); F14.20 Cocaine dependence, uncomplicated; F17.210 Nicotine dependence, cigarettes, uncomplicated; F19.24 Other psychoactive substance dependence with psychoactive substance-induced mood disorder; F41.8 Other specified anxiety disorders; F32.9 Major depressive disorder, single episode, unspecified; F43.10 Post-traumatic stress disorder, unspecified; Z21 Asymptomatic human immunodeficiency virus [HIV] infection status; I10 Essential (primary) hypertension; J45.20 Mild intermittent asthma, uncomplicated; J43.9 Emphysema, unspecified; E11.65 Type 2 diabetes mellitus with hyperglycemia; H52.12 Myopia, left eye; B18.2 Chronic viral hepatitis C; Z96.641 Presence of right artificial hip joint; Z88.0 Allergy status to penicillin; Z79.4 Long term (current) use of insulin
CPT/HCPCS: 36415; 80053; 82962; 85027; 86593; J0735

== ENCOUNTER 2018-10-19 11:21 | Inpatient (IN) | payer OTHER ==
[2018-10-19 11:48] VITALS: BMI 28.1
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
[2018-10-19] MEDS ORDERED: AMMONIUM LACTATE 12% LOTION 225 GM BOTTLE TP PRN (14:03)
[2018-10-19] MEDS ORDERED: COLLOIDAL OATMEAL 1 BAR EACH TP PRN (14:03)
[2018-10-19] MEDS ORDERED: ACETAMINOPHEN 325 MG TABLET (FP) PO PRN ×2 (14:04)
[2018-10-19] MEDS ORDERED: MENTHOL/PHENOL 1 EACH UD MM PRN (14:04)
[2018-10-19] MEDS ORDERED: MAGNESIUM CITRATE 300 ML BOTTLE PO PRN (14:04)
[2018-10-19] MEDS ORDERED: hydrOXYzine PAMOATE 25 MG CAPSULE (FP) PO PRN (14:04)
[2018-10-19] MEDS ORDERED: MAGNESIUM HYDROX 2400MG/30ML ORAL SUSPENSION 30 ML CUP PO PRN (14:04)
[2018-10-19] MEDS ORDERED: MAG HYDROX/AL HYDROX/SIMETH 30 ML UNIT-DOSE CUP PO PRN (14:04)
[2018-10-19] MEDS ORDERED: MELATONIN 5 MG TABLETS PO PRN (14:04)
[2018-10-19] MEDS ORDERED: IBUPROFEN 400 MG TABLET (FP) PO PRN (14:04)
[2018-10-19] MEDS ORDERED: BISMUTH SUBSALICYLATE 262 MG/15 ML BTL PO PRN (14:04)
[2018-10-19] MEDS ORDERED: cloNIDine HCL 0.1 MG TABLET PO PRN (14:06)
[2018-10-19] MEDS ORDERED: ALBUTEROL SO4 0.083% IH SOL 2.5 MG/3 ML VIAL.NEB. NEB PRN (14:08)
[2018-10-19] MEDS: VITAMINS A AND D TOPICAL OINTMENT 60 GM TUBE TP SCH (17:30)
[2018-10-19] MEDS: THIAMINE HCL 100 MG TABLET (FP) PO SCH (22:02)
[2018-10-19] MEDS ORDERED: METHADONE HCL 10 MG TABLET (FOR DETOX USE ONLY) PO ONE (23:00)
[2018-10-20] MEDS: VITAMINS A AND D TOPICAL OINTMENT 60 GM TUBE TP SCH ×4 (02:43→17:10)
--- NOTE | 2018-10-20 06:40 | PN ---
[facility] Progress Note Note: Patient c/o dry, peeling skin on feet and a skin flap on (L) heel. Dry, peeling skin noted on (R) foot. Areas of peeled skin noted on (L) foot and heel. Thickened flap of skin approx 3 cm, slightly elevated from (L) heel. No bleeding. No edema. Pedal pulses (+). Patient encouraged not to remove skin, as this would create an open wound. Patient verbalized an understanding. Plan: Bacitracin daily to (L) heel skin flap and cover w/ bandaid. Continue lac-hydrin lotion to other parts of the feet. Patient encouraged to f/u w/ podiatry upon discharge.
[2018-10-20] MEDS ORDERED: BACITRACIN 15 GM TUBE TOPICAL OINTMENT TP SCH (10:00)
[2018-10-20] MEDS ORDERED: METHADONE HCL 5 MG TABLET (FOR DETOX USE ONLY) PO ONE (10:00)
[2018-10-20] MEDS: PRENATAL VITAMINS W/ FOLIC ACID TABLET (FP) PO SCH (10:05)
[2018-10-20 12:22] LABS: HEMATOCRIT 39.5 % (35.4-49); HEMOGLOBIN 12.7 GM/dL (11.7-16.9); MCH 24.9 pg (25.7-33.7); MCHC 32.1 g/dl (32.0-35.9); MEAN CELL VOLUME 77.5 fl (80-96); RDW 16.4 % (11.9-15.9); WHITE BLOOD COUNT 10.6 K/mm3 (4.0-10.0)
[2018-10-20 12:27] LABS: PLATELET COUNT 198 K/MM3 (134-434)
[2018-10-20 12:42] LABS: BILIRUBIN,TOTAL 0.3 mg/dL (0.2-1); CALCIUM 7.9 mg/dL (8.5-10.1); CREATININE 0.9 mg/dL (0.55-1.3); POTASSIUM 3.9 mmol/L (3.5-5.1); TOT PROT 6.6 g/dl (6.4-8.2)
--- NOTE | 2018-10-20 12:53 | PN ---
S COWS - Scale Resting Pulse: 0= DE 80 or Below Sweatin= Chills/Flushing Restless Observation: 1= Difficult to Sit Still Pupil Size: 0= Normal to Room Light Bone or Joint Aches: 2= Severe Diffuse Aches Runny Nose/ Eye Tearin= None GI Upset > 30mins: 0= None Tremor Observation of Outstretched Hands: 2= Slight Tremor Visible Yawning Observation: 1= 1-2x During Session Anxiety or Irritability: 4=Extreme Anxiety Goose Flesh Skin: 3=Piloerection COWS Score: 14 S Progress Note (SOAP) Subjective: Body Aches, Anxious, Agitated, Tremors. Objective: PATIENT A & O X 3, OBSERVED AMBULATING ON UNIT WITH ASSISTANCE OF A CANE. IN NO ACUTE DISTRESS. PATIENT AFEBRILE. 10/20/18 12:55 Vital Signs Temperature 98.6 F 10/20/18 09:47 Pulse Rate 78 10/20/18 09:47 Respiratory Rate 20 10/20/18 09:47 Blood Pressure 127/82 10/20/18 09:47 O2 Sat by Pulse Oximetry (%) Laboratory Tests 10/20/18 10/20/18 07:30 07:30 WBC 10.6 H RBC 5.10 Hgb 12.7 Hct 39.5 MCV 77.5 L MCH 24.9 L MCHC 32.1 RDW 16.4 H Plt Count 198 D MPV 10.0 Sodium 138 Potassium 3.9 Chloride 106 Carbon Dioxide 27 Anion Gap 5 L BUN 13.0 Creatinine 0.9 Est GFR (CKD-EPI)AfAm 109.50 Est GFR (CKD-EPI)NonAf 94.48 Random Glucose 204 H Calcium 7.9 L Total Bilirubin 0.3 AST 37 ALT 54 Alkaline Phosphatase 208 H Total Protein 6.6 Albumin 3.0 L LABS NOTED. RPR RESULT PENDING. 10/20/18 12:58 Assessment: 10/20/18 12:57 WITHDRAWAL SYMPTOMS. HYPERGLYCEMIA (PATIENT REPORTS HISTORY OF TYPE II DM). ELEVATED ALKALINE PHOSPHATASE LEVEL. LEUKOCYTOSIS. Plan: CONTINUE DETOX. REPEAT CBC TOMORROW AM FOR ELEVATED WBC LEVEL NOTED ON DETOX ADMISSION. REPEAT ALKALINE PHOSPHATASE LEVEL FOR TOMORROW AM FOR ELEVATED ALKALINE PHOSPHATASE LEVEL NOTED ON DETOX ADMISSION. PATIENT REPORTS THAT HE HAS TYPE II DM AND THAT HE CHECKS HIS BGM TIDAC AT HOME AND ADMINISTERS REGULAR INSULIN ACCORDINGLY. BGM TIDAC WITH ACCOMPANYING INSULIN SLIDING SCALE ORDERED. PATIENT REPORTS ULCERS, 1 ON EACH FOOT. PARTIAL THICKNESS ULCER NOTED HEEL OF LEFT FOOT, NEAR BASE OF ACHILLES TENDON. NO DISCHARGE NOTED AT SITE. SUPERFICIAL ULCER NOTED ON SOLE OF RIGHT FOOT. NO DISCHARGE NOTED AT SITE. WOUND CARE FOR BOTH ULCERS: CLEAN WITH NORMAL SALINE, APPLY SILVADENE CREAM, AND COVER WITH GAUZE BID. BACTRIM DS PO BID ORDERED PROPHYLAXIS FOR INFECTION.
[2018-10-20] MEDS: SILVER SULFADIAZINE 1% TOP CREAM 50 GM JAR TP SCH ×2 (14:06→22:13)
[2018-10-20] MEDS: metFORMIN HCL 500 MG TABLET (FP) PO SCH (15:15)
[2018-10-20] MEDS: SULFAMETHOXAZOLE/TRIMETHOPRIM 800MG/160MG D.S. TABLET PO SCH ×2 (15:15→22:13)
[2018-10-20] MEDS: INSULIN SLIDING SCALE (NOVOLOG) 1 VIAL SQ SCH (17:10)
[2018-10-20] MEDS: THIAMINE HCL 100 MG TABLET (FP) PO SCH (22:13)
[2018-10-21] MEDS: VITAMINS A AND D TOPICAL OINTMENT 60 GM TUBE TP SCH ×4 (04:28→20:09)
[2018-10-21] MEDS: INSULIN SLIDING SCALE (NOVOLOG) 1 VIAL SQ SCH ×3 (06:49→16:52)
[2018-10-21] MEDS: metFORMIN HCL 500 MG TABLET (FP) PO SCH (06:49)
[2018-10-21] MEDS ORDERED: METHADONE HCL 10 MG TABLET (FOR DETOX USE ONLY) PO ONE (10:00)
[2018-10-21 10:21] LABS: BASO % 0.5 % (0-2.0); EOS % 1.4 % (0-4.5); HEMATOCRIT 41.6 % (35.4-49); HEMOGLOBIN 13.1 GM/dL (11.7-16.9); LYMPH % 21.1 % (8-40); MCH 24.5 pg (25.7-33.7); MCHC 31.6 g/dl (32.0-35.9); MEAN CELL VOLUME 77.5 fl (80-96); MEAN PLT VOLUME 10.1 fl (7.5-11.1); MONO % 14.9 % (3.8-10.2); NEUT % 62.1 % (42.8-82.8); RBC 5.37 M/mm3 (4.00-5.60); RDW 16.5 % (11.9-15.9); WHITE BLOOD COUNT 6.1 K/mm3 (4.0-10.0)
[2018-10-21 10:26] LABS: PLATELET COUNT 191 K/MM3 (134-434)
[2018-10-21] MEDS: SULFAMETHOXAZOLE/TRIMETHOPRIM 800MG/160MG D.S. TABLET PO SCH ×2 (10:31→22:47)
[2018-10-21] MEDS: PRENATAL VITAMINS W/ FOLIC ACID TABLET (FP) PO SCH (10:31)
[2018-10-21] MEDS: SILVER SULFADIAZINE 1% TOP CREAM 50 GM JAR TP SCH ×2 (10:33→22:47)
--- NOTE | 2018-10-21 11:48 | EKG ---
Test Reason : Blood Pressure : / mmHG Vent. Rate : 098 BPM Atrial Rate : 098 BPM P-R Int : 142 ms QRS Dur : 082 ms QT Int : 342 ms P-R-T Axes : 070 044 037 degrees QTc Int : 436 ms NORMAL SINUS RHYTHM MODERATE VOLTAGE CRITERIA FOR LVH, MAY BE NORMAL VARIANT BORDERLINE ECG WHEN COMPARED WITH ECG OF 17-OCT-2018 06:14, VENT. RATE HAS INCREASED BY 32 BPM QRS DURATION HAS DECREASED Confirmed by JOAN OTERO MD ([id number]) on 10/21/2018 11:48:27 AM Referred By: Confirmed By:JOAN OTERO MD
--- NOTE | 2018-10-21 14:55 | PN ---
[facility] COWS - Scale Resting Pulse: 1= MA 81-100 Sweatin= Chills/Flushing Restless Observation: 1= Difficult to Sit Still Pupil Size: 0= Normal to Room Light Bone or Joint Aches: 2= Severe Diffuse Aches Runny Nose/ Eye Tearin= None GI Upset > 30mins: 0= None Tremor Observation of Outstretched Hands: 0= None Yawning Observation: 1= 1-2x During Session Anxiety or Irritability: 2=Irritable/Anxious Goose Flesh Skin: 3=Piloerection COWS Score: 11 BHS Progress Note (SOAP) Subjective: Body Aches, Anxious, Irritable, Body Aches. Objective: PATIENT A & O X 3, OBSERVED AMBULATING ON UNIT UNASSISTED. IN NO ACUTE DISTRESS. 10/21/18 14:57 Vital Signs Temperature 97.9 F 10/20/18 21:30 Pulse Rate 87 10/20/18 21:30 Respiratory Rate 18 10/21/18 06:30 Blood Pressure 147/90 10/20/18 21:30 O2 Sat by Pulse Oximetry (%) Laboratory Tests 10/20/18 10/20/18 10/20/18 07:30 07:30 07:30 WBC 10.6 H RBC 5.10 Hgb 12.7 Hct 39.5 MCV 77.5 L MCH 24.9 L MCHC 32.1 RDW 16.4 H Plt Count 198 D MPV 10.0 Absolute Neuts (auto) Neutrophils % Lymphocytes % Monocytes % Eosinophils % Basophils % Nucleated RBC % Sodium 138 Potassium 3.9 Chloride 106 Carbon Dioxide 27 Anion Gap 5 L BUN 13.0 Creatinine 0.9 Est GFR (CKD-EPI)AfAm 109.50 Est GFR (CKD-EPI)NonAf 94.48 Random Glucose 204 H Calcium 7.9 L Total Bilirubin 0.3 AST 37 ALT 54 Alkaline Phosphatase 208 H Total Protein 6.6 Albumin 3.0 L RPR Titer Nonreactive 10/21/18 10/21/18 07:00 07:00 WBC 6.1 RBC 5.37 Hgb 13.1 Hct 41.6 MCV 77.5 L MCH 24.5 L MCHC 31.6 L RDW 16.5 H Plt Count 191 MPV 10.1 Absolute Neuts (auto) 3.8 Neutrophils % 62.1 Lymphocytes % 21.1 D Monocytes % 14.9 H Eosinophils % 1.4 D Basophils % 0.5 Nucleated RBC % 0 Sodium Potassium Chloride Carbon Dioxide Anion Gap BUN Creatinine Est GFR (CKD-EPI)AfAm Est GFR (CKD-EPI)NonAf Random Glucose Calcium Total Bilirubin AST ALT Alkaline Phosphatase 143 H Total Protein Albumin RPR Titer LABS NOTED. RESULTS OF REPEAT CBC NOTED (WBC LEVEL NOW NOTED TO BE WITHIN NORMAL RANGE). RESULT OF REPEAT ALKALINE PHOSPHATASE LEVEL NOTED. SIGNIFICANT REDUCTION NOTED ON REPEAT ASSESSMENT. PATIENT REFUSED TO HAVE BGM CHECKED EARLIER. 10/21/18 15:00 Assessment: 10/21/18 14:59 WITHDRAWAL SYMPTOMS. ELEVATED ALKLALINE PHOSPHATSE LEVEL. HYPERGLYCEMIA. HYPOCALCEMIA. 10/21/18 15:00 Plan: CONTINUE DETOX. OSCAL, 500 MG PO BID FOR LOW ADMISSION CALCIUM LEVEL. CONTINUE WOUND OF WOUNDS ON BILATERAL FEET PREVIOUSLY ORDERED. WILL DETERMINE TOMORROW AM PATIENT'S DEGREE OF READINESS FOR DISCHARGE FROM DETOX UNIT.
[2018-10-21] MEDS ORDERED: CALCIUM 500MG/VIT-D 200 UNITS COMBO TABLET (FP) PO SCH (22:00)
[2018-10-21] MEDS: THIAMINE HCL 100 MG TABLET (FP) PO SCH (22:47)
[2018-10-22] MEDS: VITAMINS A AND D TOPICAL OINTMENT 60 GM TUBE TP SCH ×2 (01:23→06:44)
[2018-10-22] MEDS ORDERED: METHADONE HCL 5 MG TABLET (FOR DETOX USE ONLY) PO ONE (06:00)
[2018-10-22] MEDS: metFORMIN HCL 500 MG TABLET (FP) PO SCH (07:45)
[2018-10-22] MEDS: INSULIN SLIDING SCALE (NOVOLOG) 1 VIAL SQ SCH (07:46)
[2018-10-22 10:02] VITALS: BP 143/92; PULSE 110; TEMP 98.6
--- NOTE | 2018-10-22 17:17 | DS ---
[facility] Detox Discharge Summary Admission Date: 10/19/18 Discharge Date: 10/22/18 - History Present History: Cocaine Dependence, Opioid Dependence Additional Comments: PATIENT REFERRED TO [facility] ([place], [place]) FOR AFTERCARE. PATIENT ADVISED TO FOLLOW-UP WITH FLANGER / WHEEL CLEANER / CHEMICAL PROCESSING TECHNICIAN SOON POSSIBLE AFTER DISCHARGE FROM DETOX UNIT FOR GENERAL MEDICAL ASSESSMENT AND FOR ULCERS OF BILATERAL FEET NOTED WHILE PATIENT WAS ADMITTED FOR DETOX. DISCHARGE PRESCRIPTIONS FOR BACTRIM DS PO AND FOR TOPICAL SILVADENE CREAM (STARTED WHILE PATIENT WAS ADMITTED FOR DETOX FOR TREATMENT OF ULCERS ON BILATERAL FEET) SENT TO [facility] ([place], [place]) FOR PATIENT TO COASTAL/HARBOR DEFENSE OFFICER. PATIENT ADVISED TO COMPLETE FULL COURSE OF BACTRIM DS. FOLLOW-UP WOUND CARE INSTRUCTIONS AND EDUCATION PROVIDED TO PATIENT PRIOR TO HIS DISCHARGE FROM DETOX UNIT. PATIENT VERBALIZED UNDERSTANDING OF ALL RECOMMENDATIONS PRESENTED TO HIM. PATIENT DECLINED OFFER OF MEDICATION PRESCRIPTION FOR METFORMIN AT TIME OF DISCHARGE FROM DETOX, NOTING THAT HE CURRENTLY HAS ADEQUATE SUPPLY OF THAT MEDICATION AT HOME. PATIENT WAS DISCHARGED FORM DETOX UNIT IN STABLE MEDICAL CONDITION. Pertinent Past History: Asthma, Hep C, History Of Bear's Palsy, H.I.V., History Of Fracture Of Left Mandible (With Subsequent Hardware Left In Place for Treatment), History of Arthroscopic Surgery Of Left Knee, C.O.P.D., Leukocytosis, Hyperglycemia, Type II DM, Hep B, HTN, Ulcers Of Bilateral Feet, Elevated Alkaline Phosphatase Level. - Physical Exam Results Vital Signs: Vital Signs Temperature 98.6 F 10/22/18 09:30 Pulse Rate 110 H 10/22/18 09:30 Respiratory Rate 20 10/22/18 09:30 Blood Pressure 143/92 10/22/18 09:30 O2 Sat by Pulse Oximetry (%) Pertinent Admission Physical Exam Findings: WITHDRAWAL SYMPTOMS. Laboratory Tests 10/20/18 10/20/18 10/20/18 07:30 07:30 07:30 WBC 10.6 H RBC 5.10 Hgb 12.7 Hct 39.5 MCV 77.5 L MCH 24.9 L MCHC 32.1 RDW 16.4 H Plt Count 198 D MPV 10.0 Absolute Neuts (auto) Neutrophils % Lymphocytes % Monocytes % Eosinophils % Basophils % Nucleated RBC % Sodium 138 Potassium 3.9 Chloride 106 Carbon Dioxide 27 Anion Gap 5 L BUN 13.0 Creatinine 0.9 Est GFR (CKD-EPI)AfAm 109.50 Est GFR (CKD-EPI)NonAf 94.48 Random Glucose 204 H Calcium 7.9 L Total Bilirubin 0.3 AST 37 ALT 54 Alkaline Phosphatase 208 H Total Protein 6.6 Albumin 3.0 L RPR Titer Nonreactive 10/21/18 10/21/18 07:00 07:00 WBC 6.1 RBC 5.37 Hgb 13.1 Hct 41.6 MCV 77.5 L MCH 24.5 L MCHC 31.6 L RDW 16.5 H Plt Count 191 MPV 10.1 Absolute Neuts (auto) 3.8 Neutrophils % 62.1 Lymphocytes % 21.1 D Monocytes % 14.9 H Eosinophils % 1.4 D Basophils % 0.5 Nucleated RBC % 0 Sodium Potassium Chloride Carbon Dioxide Anion Gap BUN Creatinine Est GFR (CKD-EPI)AfAm Est GFR (CKD-EPI)NonAf Random Glucose Calcium Total Bilirubin AST ALT Alkaline Phosphatase 143 H Total Protein Albumin RPR Titer LABS NOTED. - Treatment Hospital Course: Detox Protocol Followed, Detoxed Safely, Responded well, Discharged Condition Good Patient has Accepted a Rehab Referral to: PATIENT REFERRED TO [facility] ([place], [place]). - Medication Discharge Medications: Ambulatory Orders Metformin HCl [Glucophage] 500 mg PO DAILY 10/20/18 Albuterol Sulfate Inhaler - [Ventolin Hfa Inhaler -] 2 inh PO Q4H PRN #1 inhaler 10/22/18 Silver Sulfadiazine [Silvadene] 25 gm TP BID #1 tube 10/22/18 Sulfamethoxazole/Trimethoprim [Bactrim Ds -] 1 tab PO BID 7 Days #14 tablet - Diagnosis (1) Elevated alkaline phosphatase level Status: Acute (2) Leukocytosis Status: Acute Qualifiers: Leukocytosis type: unspecified Qualified Code(s): D72.829 - Elevated white blood cell count, unspecified (3) Skin ulcers of foot, bilateral Status: Acute (4) Cocaine dependence with withdrawal Status: Chronic (5) Diabetes mellitus Status: Chronic Qualifiers: Diabetes mellitus type: type 2 Diabetes mellitus terminal operations supervisor insulin use: without terminal operations supervisor use Diabetes mellitus complication status: with hyperglycemia Qualified Code(s): E11.65 - Type 2 diabetes mellitus with hyperglycemia (6) Opioid dependence with withdrawal Status: Chronic - AMA Did Patient Leave Against Medical Advice: No
== END 2018-10-22 10:00 | disposition home or self-care (01) | DRG 773 ==
LOC: YASAS 11:21 → Y3N 14:38
PROVIDERS: ADMIT Surgery; ATTEND Surgery
PROC: HZ2ZZZZ Detoxification Services for Substance Abuse Treatment (ICD-10-PCS; principal; 2018-10-19)
DX: F11.23 Opioid dependence with withdrawal (principal); F14.20 Cocaine dependence, uncomplicated; I10 Essential (primary) hypertension; E11.65 Type 2 diabetes mellitus with hyperglycemia; Z79.84 Long term (current) use of oral hypoglycemic drugs; D72.829 Elevated white blood cell count, unspecified; E83.51 Hypocalcemia; J44.9 Chronic obstructive pulmonary disease, unspecified; J45.909 Unspecified asthma, uncomplicated; B19.10 Unspecified viral hepatitis B without hepatic coma; B19.20 Unspecified viral hepatitis C without hepatic coma; R74.8 Abnormal levels of other serum enzymes; L97.519 Non-pressure chronic ulcer of other part of right foot with unspecified severity; L97.529 Non-pressure chronic ulcer of other part of left foot with unspecified severity; Z88.0 Allergy status to penicillin; Z91.018 Allergy to other foods
CPT/HCPCS: 36415; 80053; 84075; 85025; 85027; 86593; 93005; 93010

== ENCOUNTER 2020-04-18 12:48 | Inpatient (IN) | payer OTHER ==
[2020-04-18 17:18] VITALS: BMI 23.8
[2020-04-18] MEDS ORDERED: MAGNESIUM HYDROX 2400MG/30ML ORAL SUSPENSION 30 ML CUP PO PRN (17:34)
[2020-04-18] MEDS ORDERED: LORazepam 1 MG TABLET PO PRN (17:34)
[2020-04-18] MEDS ORDERED: ONDANSETRON *ODT* 4 MG TABLET SL PRN (17:34)
[2020-04-18] MEDS ORDERED: MENTHOL/PHENOL 1 EACH UD MM PRN (17:34)
[2020-04-18] MEDS ORDERED: METHOCARBAMOL 500 MG TABLET PO PRN (17:34)
[2020-04-18] MEDS ORDERED: ACETAMINOPHEN 325 MG TABLET (FP) PO PRN ×2 (17:34)
[2020-04-18] MEDS ORDERED: hydrOXYzine PAMOATE 25 MG CAPSULE (FP) PO PRN (17:34)
[2020-04-18] MEDS ORDERED: IBUPROFEN 400 MG TABLET (FP) PO PRN (17:34)
[2020-04-18] MEDS ORDERED: DICYCLOMINE HCL 10 MG CAPSULE PO PRN (17:34)
[2020-04-18] MEDS ORDERED: guaiFENesin 200 MG/10 ML 10 ML UNIT-DOSE CUPS PO PRN (17:34)
[2020-04-18] MEDS ORDERED: MAG HYDROX/AL HYDROX/SIMETH 30 ML UNIT-DOSE CUP PO PRN (17:34)
[2020-04-18] MEDS ORDERED: P-EPHED 60MG/TRIPROLIDI 2.5MG TABLET PO PRN (17:34)
[2020-04-18] MEDS ORDERED: BISMUTH SUBSALICYLATE 524 MG/30 ML UD PO PRN (17:34)
[2020-04-18] MEDS ORDERED: MAGNESIUM CITRATE 300 ML BOTTLE PO PRN (17:34)
[2020-04-18] MEDS ORDERED: THIAMINE HCL 100 MG TABLET (FP) PO SCH (22:00)
[2020-04-18] MEDS ORDERED: MELATONIN 5 MG TABLETS PO SCH (22:00)
[2020-04-18] MEDS: LORazepam 2 MG TABLET PO SCH (22:25)
[2020-04-19] MEDS ORDERED: MASKS NR ONE (07:00)
[2020-04-19] MEDS: LORazepam 2 MG TABLET PO SCH ×2 (07:38→10:24)
[2020-04-19 09:09] VITALS: BP 122/74; PULSE 109; TEMP 97.5
[2020-04-19] MEDS ORDERED: PRENATAL VITAMINS W/ FOLIC ACID TABLET (FP) PO SCH (10:00)
[2020-04-19 11:37] LABS: HEMATOCRIT 42.5 % (35.4-49); HEMOGLOBIN 13.2 GM/dL (11.7-16.9); MCH 23.5 pg (25.7-33.7); MCHC 31.1 g/dl (32.0-35.9); MEAN CELL VOLUME 75.7 fl (80-96); MEAN PLT VOLUME 10.4 fl (7.5-11.1); PLATELET COUNT 194 K/MM3 (134-434); POTASSIUM 4.4 mmol/L (3.5-5.1); RBC 5.62 M/mm3 (4.00-5.60); RDW 21.2 % (11.9-15.9); WHITE BLOOD COUNT 4.6 K/mm3 (4.0-10.0)
[2020-04-19 11:39] LABS: BLOOD UREA NITROGEN 25.8 mg/dL (7-18); CALCIUM 8.7 mg/dL (8.5-10.1)
[2020-04-19 11:42] LABS: CREATININE 0.9 mg/dL (0.55-1.3)
[2020-04-19 11:44] LABS: BILIRUBIN,TOTAL 0.8 mg/dL (0.2-1); TOT PROT 7.3 g/dl (6.4-8.2)
[2020-04-19 15:06] LABS: PH,URINE 6.5 (5.0-8.0); URINE APPEARANCE CLEAR; URINE BILIRUBIN NEGATIVE (NEGATIVE); URINE COLOR YELLOW; URINE GLUCOSE (UA) NEGATIVE (NEGATIVE); URINE KETONE NEGATIVE (NEGATIVE); URINE LEUK ESTERASE NEGATIVE (NEGATIVE); URINE NITRITE NEGATIVE (NEGATIVE); URINE PROTEIN NEGATIVE (NEGATIVE); URINE UROBILINOGEN 0.2 mg/dL (0.2-1.0)
[2020-04-20] MEDS ORDERED: LORazepam 1 MG TABLET PO SCH (05:00)
[2020-04-21] MEDS ORDERED: LORazepam 0.5 MG TABLET PO PRN
[2020-04-21] MEDS ORDERED: LORazepam 0.5 MG TABLET PO SCH (05:00)
[2020-04-22] MEDS ORDERED: LORazepam 0.5 MG TABLET PO ONE (05:00)
== END 2020-04-19 10:56 | disposition left against medical advice (07) | DRG 770 ==
LOC: YASAS 12:48 → Y3N 17:39
PROVIDERS: ADMIT Allergy & Immunology; ATTEND Allergy & Immunology
PROC: HZ2ZZZZ Detoxification Services for Substance Abuse Treatment (ICD-10-PCS; principal; 2020-04-18)
DX: F10.230 Alcohol dependence with withdrawal, uncomplicated (principal); F14.20 Cocaine dependence, uncomplicated; F17.210 Nicotine dependence, cigarettes, uncomplicated; F43.10 Post-traumatic stress disorder, unspecified; F19.24 Other psychoactive substance dependence with psychoactive substance-induced mood disorder; I10 Essential (primary) hypertension; Z21 Asymptomatic human immunodeficiency virus [HIV] infection status; J45.20 Mild intermittent asthma, uncomplicated; J44.9 Chronic obstructive pulmonary disease, unspecified; B18.2 Chronic viral hepatitis C; R63.8 Other symptoms and signs concerning food and fluid intake; L91.0 Hypertrophic scar; Z91.81 History of falling; R26.2 Difficulty in walking, not elsewhere classified; Z99.89 Dependence on other enabling machines and devices; Z91.14 Patient's other noncompliance with medication regimen; Z96.641 Presence of right artificial hip joint; Z88.0 Allergy status to penicillin; Z91.018 Allergy to other foods
CPT/HCPCS: 36415; 80053; 81003; 85027; 86780; 93005; 93010; C9803; U0003

== ENCOUNTER 2021-03-07 18:04 | Inpatient (IN) | payer OTHER ==
[2021-03-07] MEDS ORDERED: MAGNESIUM HYDROX 2400MG/30ML ORAL SUSPENSION 30 ML CUP PO PRN (22:42)
[2021-03-07] MEDS ORDERED: BISMUTH SUBSALICYLATE 524 MG/30 ML PO PRN (22:42)
[2021-03-07] MEDS ORDERED: ONDANSETRON *ODT* 4 MG TABLET SL PRN (22:42)
[2021-03-07] MEDS ORDERED: IBUPROFEN 400 MG TABLET (FP) PO PRN (22:42)
[2021-03-07] MEDS ORDERED: METHOCARBAMOL 500 MG TABLET PO PRN (22:42)
[2021-03-07] MEDS ORDERED: MENTHOL/PHENOL 1 EACH UD MM PRN (22:42)
[2021-03-07] MEDS ORDERED: NICOTINE POLACRILEX 2 MG GUM BUC PRN (22:42)
[2021-03-07] MEDS ORDERED: MAGNESIUM CITRATE 300 ML BOTTLE PO PRN (22:42)
[2021-03-07] MEDS ORDERED: MAG HYDROX/AL HYDROX/SIMETH 30 ML UNIT-DOSE CUP PO PRN (22:42)
[2021-03-07] MEDS ORDERED: ACETAMINOPHEN 325 MG TABLET (FP) PO PRN ×2 (22:42)
[2021-03-08] MEDS ORDERED: LORazepam 1 MG TABLET PO PRN (09:13)
[2021-03-08] MEDS: LORazepam 2 MG TABLET PO SCH ×3 (10:25→22:49)
[2021-03-08] MEDS: PRENATAL VITAMINS W/ FOLIC ACID TABLET (FP) PO SCH (10:27)
[2021-03-08] MEDS ORDERED: TETRAHYDROZOLINE HCL EYE DROPS OD PRN (11:11)
[2021-03-08 11:29] LABS: HEMATOCRIT 38.5 % (35.4-49); MCHC 33.7 g/dl (32.0-35.9); MEAN CELL VOLUME 74.1 fl (80-96); MEAN PLT VOLUME 9.5 fl (7.5-11.1); PLATELET COUNT 188 10^3/uL (134-434); RBC 5.19 M/mm3 (4.00-5.60); RDW 17.6 % (11.9-15.9); WHITE BLOOD COUNT 5.7 K/mm3 (4.0-10.0)
[2021-03-08 11:31] LABS: CALCIUM 8.3 mg/dL (8.5-10.1)
[2021-03-08 11:33] LABS: ALBUMIN 2.5 g/dl (3.4-5.0); BLOOD UREA NITROGEN 26.6 mg/dL (7-18)
[2021-03-08 11:36] LABS: BILIRUBIN,TOTAL 0.2 mg/dL (0.2-1); TOT PROT 6.5 g/dl (6.4-8.2)
[2021-03-08] MEDS: MELATONIN 5 MG TABLETS PO SCH (22:49)
[2021-03-08] MEDS: THIAMINE HCL 100 MG TABLET (FP) PO SCH (22:49)
[2021-03-09] MEDS: LORazepam 2 MG TABLET PO SCH ×4 (06:32→22:42)
[2021-03-09] MEDS: PRENATAL VITAMINS W/ FOLIC ACID TABLET (FP) PO SCH (11:05)
[2021-03-09] MEDS: MELATONIN 5 MG TABLETS PO SCH (22:43)
[2021-03-09] MEDS: THIAMINE HCL 100 MG TABLET (FP) PO SCH (22:44)
[2021-03-10] MEDS: LORazepam 1 MG TABLET PO SCH ×4 (05:50→22:41)
[2021-03-10] MEDS: PRENATAL VITAMINS W/ FOLIC ACID TABLET (FP) PO SCH (10:55)
[2021-03-10 17:49] VITALS: PULSE 104
[2021-03-10] MEDS: THIAMINE HCL 100 MG TABLET (FP) PO SCH (22:41)
[2021-03-10] MEDS: MELATONIN 5 MG TABLETS PO SCH (22:41)
[2021-03-11] MEDS ORDERED: LORazepam 0.5 MG TABLET PO PRN
[2021-03-11] MEDS: LORazepam 0.5 MG TABLET PO SCH ×2 (06:05→10:23)
[2021-03-11 06:30] VITALS: BP 116/78; TEMP 97.9
[2021-03-11] MEDS: PRENATAL VITAMINS W/ FOLIC ACID TABLET (FP) PO SCH (10:23)
[2021-03-12] MEDS ORDERED: LORazepam 0.5 MG TABLET PO ONE (05:00)
== END 2021-03-11 09:23 | disposition home or self-care (01) | DRG 774 ==
LOC: YASAS 18:04 → Y3N 03-08 01:48 → UNDOADMIN 03-08 01:48
PROVIDERS: ADMIT Allergy & Immunology; ATTEND Allergy & Immunology
PROC: HZ2ZZZZ Detoxification Services for Substance Abuse Treatment (ICD-10-PCS; principal; 2021-03-08)
DX: F10.230 Alcohol dependence with withdrawal, uncomplicated (principal); F14.20 Cocaine dependence, uncomplicated; F43.10 Post-traumatic stress disorder, unspecified; Z21 Asymptomatic human immunodeficiency virus [HIV] infection status; I10 Essential (primary) hypertension; J44.9 Chronic obstructive pulmonary disease, unspecified; J45.20 Mild intermittent asthma, uncomplicated; E86.0 Dehydration; R74.01 Elevation of levels of liver transaminase levels; R74.8 Abnormal levels of other serum enzymes; Z96.641 Presence of right artificial hip joint; Z99.89 Dependence on other enabling machines and devices; Z87.891 Personal history of nicotine dependence; Z86.19 Personal history of other infectious and parasitic diseases; Z88.0 Allergy status to penicillin; Z91.018 Allergy to other foods; Z86.69 Personal history of other diseases of the nervous system and sense organs
CPT/HCPCS: 36415; 80053; 85027; 86780; C9803; U0003; U0005

== ENCOUNTER 2022-01-04 09:59 | Inpatient (IN) | payer OTHER ==
[2022-01-04 14:47] VITALS: BMI 32.8
[2022-01-04] MEDS ORDERED: ACETAMINOPHEN 325 MG TABLET (FP) PO PRN ×2 (16:46)
[2022-01-04] MEDS ORDERED: DICYCLOMINE HCL 10 MG CAPSULE PO PRN (16:46)
[2022-01-04] MEDS ORDERED: NICOTINE 10 MG CARTRIDGE (INHALER) IH PRN (16:46)
[2022-01-04] MEDS ORDERED: BENZOCAINE/MENTHOL (CHLORASEPTIC ) LOZENGE MM PRN (16:46)
[2022-01-04] MEDS ORDERED: NALOXONE HCL (KLOXXADO) 8 MG SPRAY NS PRN (16:46)
[2022-01-04] MEDS ORDERED: diazePAM 5 MG TABLET PO PRN (16:46)
[2022-01-04] MEDS ORDERED: MAGNESIUM CITRATE 300 ML BOTTLE PO PRN (16:46)
[2022-01-04] MEDS ORDERED: BUPRENORPHINE HCL 150 MCG, BUPRENORPHINE HCL 75 MCG BC ONE (16:46)
[2022-01-04] MEDS ORDERED: IBUPROFEN 400 MG TABLET (FP) PO PRN (16:46)
[2022-01-04] MEDS ORDERED: MAG HYDROX/AL HYDROX/SIMETH 30 ML UNIT-DOSE CUP PO PRN (16:46)
[2022-01-04] MEDS ORDERED: MAGNESIUM HYDROX 2400MG/30ML ORAL SUSPENSION 30 ML CUP PO PRN (16:46)
[2022-01-04] MEDS ORDERED: BUPRENORPHINE HCL 150 MCG, BUPRENORPHINE HCL 75 MCG BC PRN (16:46)
[2022-01-04] MEDS ORDERED: LOPERAMIDE HCL 2 MG CAPSULE PO PRN (16:46)
[2022-01-04] MEDS ORDERED: ONDANSETRON *ODT* 4 MG TABLET SL PRN (16:46)
[2022-01-04] MEDS ORDERED: BISMUTH SUBSALICYLATE 524 MG/30 ML PO PRN (16:46)
[2022-01-04] MEDS ORDERED: cloNIDine HCL 0.1 MG TABLET PO ONE (16:46)
[2022-01-04] MEDS ORDERED: ALBUTEROL SO4 HFA INHALER IH PRN (16:54)
[2022-01-04] MEDS: hydrOXYzine PAMOATE 25 MG CAPSULE (FP) PO SCH ×2 (19:13→23:16)
[2022-01-04] MEDS: amLODIPine BESYLATE 10 MG TABLET (FP) PO SCH (19:13)
[2022-01-04] MEDS ORDERED: cloNIDine HCL 0.1 MG TABLET PO PRN (20:46)
[2022-01-04] MEDS: MELATONIN 5 MG TABLETS PO SCH (23:16)
[2022-01-04] MEDS: THIAMINE HCL 100 MG TABLET (FP) PO SCH (23:16)
[2022-01-05] MEDS ORDERED: BUPRENORPHINE HCL 150 MCG, BUPRENORPHINE HCL 75 MCG BC PRN
[2022-01-05] MEDS: BUPRENORPHINE HCL 150 MCG, BUPRENORPHINE HCL 75 MCG BC SCH ×2 (05:19→18:30)
[2022-01-05] MEDS: hydrOXYzine PAMOATE 25 MG CAPSULE (FP) PO SCH ×5 (05:21→23:15)
[2022-01-05] MEDS: amLODIPine BESYLATE 10 MG TABLET (FP) PO SCH (09:56)
[2022-01-05] MEDS: METHOCARBAMOL 500 MG TABLET PO PRN (09:56)
[2022-01-05] MEDS: PRENATAL VITAMINS W/ FOLIC ACID TABLET (FP) PO SCH (09:56)
[2022-01-05] MEDS: IBUPROFEN 600 MG TABLET (FP) PO PRN (09:56)
[2022-01-05] MEDS: THIAMINE HCL 100 MG TABLET (FP) PO SCH (23:15)
[2022-01-05] MEDS: MELATONIN 5 MG TABLETS PO SCH (23:15)
[2022-01-06] MEDS: BUPRENORPHINE HCL 450 MCG FILM BC SCH ×2 (05:30→19:00)
[2022-01-06] MEDS: hydrOXYzine PAMOATE 25 MG CAPSULE (FP) PO SCH ×5 (05:31→22:54)
[2022-01-06] MEDS: PRENATAL VITAMINS W/ FOLIC ACID TABLET (FP) PO SCH (10:36)
[2022-01-06] MEDS: METHOCARBAMOL 500 MG TABLET PO PRN (10:36)
[2022-01-06] MEDS: amLODIPine BESYLATE 10 MG TABLET (FP) PO SCH (10:36)
[2022-01-06 14:15] LABS: HEMATOCRIT 42.1 % (35.4-49); HEMOGLOBIN 12.8 GM/dL (11.7-16.9); MCH 23.3 pg (25.7-33.7); MCHC 30.3 g/dl (32.0-35.9); MEAN CELL VOLUME 76.9 fl (80-96); MEAN PLT VOLUME 9.7 fl (7.5-11.1); PLATELET COUNT 179 10^3/uL (134-434); RBC 5.48 M/mm3 (4.00-5.60); RDW 18.5 % (11.9-15.9); WHITE BLOOD COUNT 7.8 K/mm3 (4.0-10.0)
[2022-01-06 14:22] LABS: CALCIUM 8.6 mg/dL (8.5-10.1)
[2022-01-06 14:24] LABS: ALBUMIN 2.6 g/dl (3.4-5.0); CREATININE 0.9 mg/dL (0.55-1.3)
[2022-01-06 14:26] LABS: BILIRUBIN,TOTAL 0.3 mg/dL (0.2-1); TOT PROT 6.1 g/dl (6.4-8.2)
[2022-01-06] MEDS: MELATONIN 5 MG TABLETS PO SCH (22:54)
[2022-01-06] MEDS: THIAMINE HCL 100 MG TABLET (FP) PO SCH (22:55)
[2022-01-07] MEDS: BUPRENORPHINE/NALOXONE 4 MG/1 MG FILM PACKET SL SCH ×2 (05:12→18:05)
[2022-01-07] MEDS: hydrOXYzine PAMOATE 25 MG CAPSULE (FP) PO SCH ×5 (05:12→22:32)
[2022-01-07] MEDS: METHOCARBAMOL 500 MG TABLET PO PRN ×2 (06:29→22:32)
[2022-01-07] MEDS: IBUPROFEN 600 MG TABLET (FP) PO PRN ×3 (06:29→22:32)
[2022-01-07] MEDS: amLODIPine BESYLATE 10 MG TABLET (FP) PO SCH (10:35)
[2022-01-07] MEDS: PRENATAL VITAMINS W/ FOLIC ACID TABLET (FP) PO SCH (10:37)
[2022-01-07] MEDS: THIAMINE HCL 100 MG TABLET (FP) PO SCH (22:32)
[2022-01-07] MEDS: MELATONIN 5 MG TABLETS PO SCH (22:33)
[2022-01-08] MEDS: hydrOXYzine PAMOATE 25 MG CAPSULE (FP) PO SCH ×6 (05:06→23:23)
[2022-01-08] MEDS ORDERED: BUPRENORPHINE/NALOXONE 8 MG/2 MG FILM PACKET SL ONE ×2 (06:00→09:45)
[2022-01-08] MEDS: IBUPROFEN 600 MG TABLET (FP) PO PRN ×2 (06:06→13:09)
[2022-01-08] MEDS: amLODIPine BESYLATE 10 MG TABLET (FP) PO SCH (09:52)
[2022-01-08] MEDS: PRENATAL VITAMINS W/ FOLIC ACID TABLET (FP) PO SCH (09:55)
[2022-01-08] MEDS: BUPRENORPHINE/NALOXONE 8 MG/2 MG FILM PACKET SL SCH (18:02)
[2022-01-08] MEDS: MELATONIN 5 MG TABLETS PO SCH (23:23)
[2022-01-08] MEDS: THIAMINE HCL 100 MG TABLET (FP) PO SCH (23:24)
[2022-01-09] MEDS: METHOCARBAMOL 500 MG TABLET PO PRN (00:29)
[2022-01-09] MEDS: IBUPROFEN 600 MG TABLET (FP) PO PRN ×2 (00:29→08:51)
[2022-01-09] MEDS: hydrOXYzine PAMOATE 25 MG CAPSULE (FP) PO SCH ×3 (05:10→09:16)
[2022-01-09] MEDS: BUPRENORPHINE/NALOXONE 8 MG/2 MG FILM PACKET SL SCH (05:11)
[2022-01-09 09:15] VITALS: BP 147/76; PULSE 88; RESP 18; TEMP 96.9
[2022-01-09] MEDS: amLODIPine BESYLATE 10 MG TABLET (FP) PO SCH (09:16)
[2022-01-09] MEDS: PRENATAL VITAMINS W/ FOLIC ACID TABLET (FP) PO SCH (09:16)
== END 2022-01-09 09:20 | disposition home or self-care (01) | DRG 773 ==
LOC: YASAS 09:59 → Y6N 15:42
PROVIDERS: ADMIT Allergy & Immunology; ATTEND Surgery
PROC: HZ2ZZZZ Detoxification Services for Substance Abuse Treatment (ICD-10-PCS; principal; 2022-01-04)
DX: F11.23 Opioid dependence with withdrawal (principal); F14.20 Cocaine dependence, uncomplicated; J44.9 Chronic obstructive pulmonary disease, unspecified; Z21 Asymptomatic human immunodeficiency virus [HIV] infection status; B18.2 Chronic viral hepatitis C; R00.0 Tachycardia, unspecified; Z87.891 Personal history of nicotine dependence; Z96.641 Presence of right artificial hip joint; Z91.14 Patient's other noncompliance with medication regimen; Z88.0 Allergy status to penicillin; Z87.438 Personal history of other diseases of male genital organs
CPT/HCPCS: 36415; 71046-TC-FY; 80053; 82962; 85027; 86780; 87811; C9803-CS; U0003; U0005

== ENCOUNTER 2022-03-15 12:57 | Inpatient (IN) | payer OTHER ==
[2022-03-15 16:41] VITALS: BMI 29.0
[2022-03-15] MEDS ORDERED: diazePAM 5 MG TABLET PO PRN (19:32)
[2022-03-15] MEDS ORDERED: BUPRENORPHINE HCL 150 MCG, BUPRENORPHINE HCL 75 MCG BC PRN (19:32)
[2022-03-15] MEDS ORDERED: ALBUTEROL SO4 HFA INHALER IH PRN (19:33)
[2022-03-15] MEDS ORDERED: cloNIDine HCL 0.1 MG TABLET PO ONE (20:00)
[2022-03-15] MEDS ORDERED: BUPRENORPHINE HCL 150 MCG, BUPRENORPHINE HCL 75 MCG BC ONE (20:00)
[2022-03-15] MEDS ORDERED: cloNIDine HCL 0.1 MG TABLET PO PRN (23:32)
[2022-03-16] MEDS ORDERED: BUPRENORPHINE HCL 150 MCG, BUPRENORPHINE HCL 75 MCG BC PRN
[2022-03-16] MEDS: BUPRENORPHINE HCL 150 MCG, BUPRENORPHINE HCL 75 MCG BC SCH ×2 (05:16→17:50)
[2022-03-16] MEDS: amLODIPine BESYLATE 10 MG TABLET (FP) PO SCH (10:37)
[2022-03-17] MEDS: BUPRENORPHINE HCL 450 MCG FILM BC SCH ×2 (05:06→17:42)
[2022-03-17] MEDS ORDERED: METHOCARBAMOL 500 MG TABLET PO PRN (09:22)
[2022-03-17] MEDS ORDERED: ONDANSETRON *ODT* 4 MG TABLET SL PRN (09:22)
[2022-03-17] MEDS ORDERED: BENZOCAINE/MENTHOL (CHLORASEPTIC ) LOZENGE MM PRN (09:22)
[2022-03-17] MEDS ORDERED: hydrOXYzine PAMOATE 25 MG CAPSULE (FP) PO PRN (09:22)
[2022-03-17] MEDS ORDERED: NALOXONE HCL (KLOXXADO) 8 MG SPRAY NS PRN (09:22)
[2022-03-17] MEDS ORDERED: LOPERAMIDE HCL 2 MG CAPSULE PO PRN (09:22)
[2022-03-17] MEDS ORDERED: MAGNESIUM HYDROX 2400MG/30ML ORAL SUSPENSION 30 ML CUP PO PRN (09:22)
[2022-03-17] MEDS ORDERED: IBUPROFEN 600 MG TABLET (FP) PO PRN (09:22)
[2022-03-17] MEDS ORDERED: MAG HYDROX/AL HYDROX/SIMETH 30 ML UNIT-DOSE CUP PO PRN (09:22)
[2022-03-17] MEDS ORDERED: MAGNESIUM CITRATE 300 ML BOTTLE PO PRN (09:22)
[2022-03-17] MEDS ORDERED: BISMUTH SUBSALICYLATE 524 MG/30 ML PO PRN (09:22)
[2022-03-17] MEDS ORDERED: IBUPROFEN 400 MG TABLET (FP) PO PRN (09:22)
[2022-03-17] MEDS ORDERED: ACETAMINOPHEN 325 MG TABLET (FP) PO PRN ×2 (09:22)
[2022-03-17] MEDS ORDERED: DICYCLOMINE HCL 10 MG CAPSULE PO PRN (09:22)
[2022-03-17] MEDS ORDERED: NICOTINE 10 MG CARTRIDGE (INHALER) IH PRN (09:22)
[2022-03-17] MEDS: amLODIPine BESYLATE 10 MG TABLET (FP) PO SCH (10:06)
[2022-03-17] MEDS: PRENATAL VITAMINS W/ FOLIC ACID TABLET (FP) PO SCH (10:07)
[2022-03-17 18:21] VITALS: RESP 18
[2022-03-17] MEDS ORDERED: MELATONIN 5 MG TABLETS PO SCH (22:00)
[2022-03-17] MEDS ORDERED: THIAMINE HCL 100 MG TABLET (FP) PO SCH (22:00)
[2022-03-18] MEDS ORDERED: BUPRENORPHINE/NALOXONE 4 MG/1 MG FILM PACKET SL SCH (06:00)
[2022-03-18 09:17] VITALS: BP 113/72; PULSE 93; TEMP 97.7
[2022-03-18] MEDS: PRENATAL VITAMINS W/ FOLIC ACID TABLET (FP) PO SCH (11:04)
[2022-03-18] MEDS: amLODIPine BESYLATE 10 MG TABLET (FP) PO SCH (11:04)
[2022-03-19] MEDS ORDERED: BUPRENORPHINE/NALOXONE 8 MG/2 MG FILM PACKET SL ONE (06:00)
== END 2022-03-18 11:42 | disposition left against medical advice (07) | DRG 770 ==
LOC: SUATTDRO 12:57 → YASAS 12:57 → Y3N 19:18
PROVIDERS: ADMIT Allergy & Immunology; ATTEND Surgery
PROC: HZ2ZZZZ Detoxification Services for Substance Abuse Treatment (ICD-10-PCS; principal; 2022-03-15)
DX: F11.23 Opioid dependence with withdrawal (principal); F14.20 Cocaine dependence, uncomplicated; Z21 Asymptomatic human immunodeficiency virus [HIV] infection status; I10 Essential (primary) hypertension; J44.9 Chronic obstructive pulmonary disease, unspecified; R76.11 Nonspecific reaction to tuberculin skin test without active tuberculosis; Z96.641 Presence of right artificial hip joint; Z86.19 Personal history of other infectious and parasitic diseases; Z88.0 Allergy status to penicillin
CPT/HCPCS: C9803-CS; U0003; U0005

== ENCOUNTER 2022-04-15 13:55 | Inpatient (IN) | payer OTHER ==
[2022-04-15 15:08] VITALS: BMI 30.4
[2022-04-15] MEDS ORDERED: IBUPROFEN 400 MG TABLET (FP) PO PRN (16:51)
[2022-04-15] MEDS ORDERED: BENZOCAINE/MENTHOL (CHLORASEPTIC ) LOZENGE MM PRN (16:51)
[2022-04-15] MEDS ORDERED: MAG HYDROX/AL HYDROX/SIMETH 30 ML UNIT-DOSE CUP PO PRN (16:51)
[2022-04-15] MEDS ORDERED: ONDANSETRON *ODT* 4 MG TABLET SL ONE (16:51)
[2022-04-15] MEDS ORDERED: MAGNESIUM HYDROX 2400MG/30ML ORAL SUSPENSION 30 ML CUP PO PRN (16:51)
[2022-04-15] MEDS ORDERED: ACETAMINOPHEN 325 MG TABLET (FP) PO PRN ×2 (16:51)
[2022-04-15] MEDS ORDERED: LOPERAMIDE HCL 2 MG CAPSULE PO PRN (16:51)
[2022-04-15] MEDS ORDERED: POLYETHYLENE GLYCOL (HEALTHYLAX) 3350 17 GM PACKET PO PRN (16:51)
[2022-04-15] MEDS ORDERED: BISMUTH SUBSALICYLATE 524 MG/30 ML PO PRN (16:51)
[2022-04-15] MEDS ORDERED: hydrOXYzine PAMOATE 25 MG CAPSULE (FP) PO PRN (16:51)
[2022-04-15] MEDS ORDERED: DICYCLOMINE HCL 10 MG CAPSULE PO PRN (16:51)
[2022-04-15] MEDS ORDERED: NALOXONE HCL (KLOXXADO) 8 MG SPRAY NS PRN (16:51)
[2022-04-15] MEDS: MELATONIN 5 MG TABLETS PO SCH (22:51)
[2022-04-15] MEDS: THIAMINE HCL 100 MG TABLET (FP) PO SCH (22:51)
[2022-04-16] MEDS: METHOCARBAMOL 500 MG TABLET PO PRN ×2 (05:28→16:50)
[2022-04-16] MEDS ORDERED: cloNIDine HCL 0.1 MG TABLET PO PRN (08:40)
[2022-04-16] MEDS ORDERED: methaDONE HCL 10 MG TABLET (FOR DETOX USE ONLY) PO ONE (09:00)
[2022-04-16] MEDS: PRENATAL VITAMINS W/ FOLIC ACID TABLET (FP) PO SCH (09:51)
[2022-04-16] MEDS: IBUPROFEN 600 MG TABLET (FP) PO PRN ×2 (09:52→16:51)
[2022-04-16] MEDS ORDERED: ALBUTEROL SO4 HFA INHALER IH PRN (13:34)
[2022-04-16 14:52] LABS: CALCIUM 8.4 mg/dL (8.5-10.1)
[2022-04-16 14:53] LABS: ALBUMIN 2.9 g/dl (3.4-5.0); BLOOD UREA NITROGEN 16.6 mg/dL (7-18)
[2022-04-16 14:58] LABS: BILIRUBIN,TOTAL 0.6 mg/dL (0.2-1); CREATININE 0.8 mg/dL (0.55-1.3)
[2022-04-16 14:59] LABS: TOT PROT 7.2 g/dl (6.4-8.2)
[2022-04-16 15:09] LABS: HEMATOCRIT 42.5 % (35.4-49); MCH 23.3 pg (25.7-33.7); MCHC 30.6 g/dl (32.0-35.9); MEAN CELL VOLUME 75.9 fl (80-96); PLATELET COUNT 228 10^3/uL (134-434); RDW 18.6 % (11.9-15.9); WHITE BLOOD COUNT 4.7 K/mm3 (4.0-10.0)
[2022-04-16] MEDS: THIAMINE HCL 100 MG TABLET (FP) PO SCH (22:26)
[2022-04-16] MEDS: MELATONIN 5 MG TABLETS PO SCH (22:26)
[2022-04-17] MEDS: METHOCARBAMOL 500 MG TABLET PO PRN (10:18)
[2022-04-17] MEDS: PRENATAL VITAMINS W/ FOLIC ACID TABLET (FP) PO SCH (10:18)
[2022-04-17] MEDS: LIDOCAINE 5% TOPICAL PATCH TP SCH (15:16)
[2022-04-17] MEDS: LIDOCAINE PATCH REMOVAL MC SCH (23:00)
[2022-04-17] MEDS: THIAMINE HCL 100 MG TABLET (FP) PO SCH (23:00)
[2022-04-17] MEDS: MELATONIN 5 MG TABLETS PO SCH (23:00)
[2022-04-18] MEDS: METHOCARBAMOL 500 MG TABLET PO PRN ×2 (01:03→18:00)
[2022-04-18] MEDS: IBUPROFEN 600 MG TABLET (FP) PO PRN ×2 (01:03→18:00)
[2022-04-18] MEDS ORDERED: methaDONE HCL 10 MG TABLET (FOR DETOX USE ONLY) PO ONE (10:00)
[2022-04-18] MEDS: PRENATAL VITAMINS W/ FOLIC ACID TABLET (FP) PO SCH (10:25)
[2022-04-18] MEDS: LIDOCAINE 5% TOPICAL PATCH TP SCH (10:27)
[2022-04-18] MEDS: LIDOCAINE PATCH REMOVAL MC SCH (22:32)
[2022-04-18] MEDS: THIAMINE HCL 100 MG TABLET (FP) PO SCH (22:32)
[2022-04-18] MEDS: MELATONIN 5 MG TABLETS PO SCH (22:32)
[2022-04-19] MEDS: PRENATAL VITAMINS W/ FOLIC ACID TABLET (FP) PO SCH (10:35)
[2022-04-19] MEDS: LIDOCAINE 5% TOPICAL PATCH TP SCH (10:36)
[2022-04-19] MEDS: IBUPROFEN 600 MG TABLET (FP) PO PRN (12:35)
[2022-04-19] MEDS: THIAMINE HCL 100 MG TABLET (FP) PO SCH (23:59)
[2022-04-19] MEDS: LIDOCAINE PATCH REMOVAL MC SCH (23:59)
[2022-04-19] MEDS: MELATONIN 5 MG TABLETS PO SCH (23:59)
[2022-04-20 09:58] VITALS: BP 139/65; PULSE 81; RESP 16; TEMP 98
[2022-04-20] MEDS ORDERED: methaDONE HCL 10 MG TABLET (FOR DETOX USE ONLY) PO ONE (10:00)
== END 2022-04-20 10:17 | disposition home or self-care (01) | DRG 773 ==
LOC: YASAS 13:55 → Y3N 18:38 → UNDOADMIN 18:38
PROVIDERS: ADMIT Allergy & Immunology; ATTEND Surgery
PROC: HZ2ZZZZ Detoxification Services for Substance Abuse Treatment (ICD-10-PCS; principal; 2022-04-15)
DX: F11.23 Opioid dependence with withdrawal (principal); F10.230 Alcohol dependence with withdrawal, uncomplicated; F14.20 Cocaine dependence, uncomplicated; F12.20 Cannabis dependence, uncomplicated; Z21 Asymptomatic human immunodeficiency virus [HIV] infection status; B18.2 Chronic viral hepatitis C; J44.9 Chronic obstructive pulmonary disease, unspecified; I10 Essential (primary) hypertension; M25.562 Pain in left knee; R94.5 Abnormal results of liver function studies; Z96.641 Presence of right artificial hip joint; Z86.19 Personal history of other infectious and parasitic diseases; Z99.89 Dependence on other enabling machines and devices; Z88.0 Allergy status to penicillin
CPT/HCPCS: 36415; 80053; 85027; 86780; 87811; C9803-CS; U0003; U0005

== ENCOUNTER 2022-05-28 13:02 | Inpatient (IN) | payer OTHER ==
[2022-05-28 15:12] VITALS: BMI 29.7
[2022-05-28] MEDS ORDERED: BISMUTH SUBSALICYLATE 524 MG/30 ML PO PRN ×2 (17:20→17:33)
[2022-05-28] MEDS ORDERED: LOPERAMIDE HCL 2 MG CAPSULE PO PRN ×2 (17:20→17:33)
[2022-05-28] MEDS ORDERED: ONDANSETRON *ODT* 4 MG TABLET SL PRN ×2 (17:20→17:33)
[2022-05-28] MEDS ORDERED: IBUPROFEN 400 MG TABLET (FP) PO PRN ×2 (17:20→17:33)
[2022-05-28] MEDS ORDERED: POLYETHYLENE GLYCOL (HEALTHYLAX) 3350 17 GM PACKET PO PRN ×2 (17:20→17:33)
[2022-05-28] MEDS ORDERED: DICYCLOMINE HCL 10 MG CAPSULE PO PRN ×2 (17:20→17:33)
[2022-05-28] MEDS ORDERED: BENZOCAINE/MENTHOL (CHLORASEPTIC ) LOZENGE MM PRN ×2 (17:20→17:33)
[2022-05-28] MEDS ORDERED: IBUPROFEN 600 MG TABLET (FP) PO PRN ×2 (17:20→17:33)
[2022-05-28] MEDS ORDERED: ACETAMINOPHEN 325 MG TABLET (FP) PO PRN ×4 (17:20→17:33)
[2022-05-28] MEDS ORDERED: MAG HYDROX/AL HYDROX/SIMETH 30 ML UNIT-DOSE CUP PO PRN ×2 (17:20→17:33)
[2022-05-28] MEDS ORDERED: METHOCARBAMOL 500 MG TABLET PO PRN ×2 (17:20→17:33)
[2022-05-28] MEDS ORDERED: NALOXONE HCL (KLOXXADO) 8 MG SPRAY NS PRN ×2 (17:20→17:33)
[2022-05-28] MEDS ORDERED: MAGNESIUM HYDROX 2400MG/30ML ORAL SUSPENSION 30 ML CUP PO PRN ×2 (17:20→17:33)
[2022-05-28] MEDS ORDERED: ALBUTEROL SO4 HFA INHALER IH PRN (19:32)
[2022-05-28] MEDS ORDERED: THIAMINE HCL 100 MG TABLET (FP) PO SCH (22:00)
[2022-05-28] MEDS ORDERED: MELATONIN 5 MG TABLETS PO SCH (22:00)
[2022-05-28] MEDS: MELATONIN 5 MG TABLETS PO SCH (22:10)
[2022-05-28] MEDS: THIAMINE HCL 100 MG TABLET (FP) PO SCH (22:10)
[2022-05-29] MEDS: amLODIPine BESYLATE 10 MG TABLET (FP) PO SCH ×2 (12:50→12:54)
[2022-05-29] MEDS: THIAMINE HCL 100 MG TABLET (FP) PO SCH (22:41)
[2022-05-29] MEDS: MELATONIN 5 MG TABLETS PO SCH (22:41)
[2022-05-30 06:51] VITALS: PULSE 100
[2022-05-30 09:12] VITALS: BP 156/100; RESP 20; TEMP 97.3
[2022-05-30] MEDS: amLODIPine BESYLATE 10 MG TABLET (FP) PO SCH (11:01)
== END 2022-05-30 10:02 | disposition home or self-care (01) | DRG 773 ==
LOC: YASAS 13:02 → Y6N 18:49 → UNDOADMIN 18:49 → UNDODISIN 05-30 10:02
PROVIDERS: ADMIT Allergy & Immunology; ATTEND Surgery
PROC: HZ2ZZZZ Detoxification Services for Substance Abuse Treatment (ICD-10-PCS; principal; 2022-05-28)
DX: F10.230 Alcohol dependence with withdrawal, uncomplicated (principal); F11.20 Opioid dependence, uncomplicated; F14.20 Cocaine dependence, uncomplicated; F12.20 Cannabis dependence, uncomplicated; F17.210 Nicotine dependence, cigarettes, uncomplicated; Z21 Asymptomatic human immunodeficiency virus [HIV] infection status; J44.9 Chronic obstructive pulmonary disease, unspecified; J45.20 Mild intermittent asthma, uncomplicated; B18.2 Chronic viral hepatitis C; Z96.641 Presence of right artificial hip joint; R76.11 Nonspecific reaction to tuberculin skin test without active tuberculosis; Z99.89 Dependence on other enabling machines and devices; Z88.8 Allergy status to other drugs, medicaments and biological substances
CPT/HCPCS: C9803-CS; U0003; U0005

== ENCOUNTER 2022-08-30 14:54 | Inpatient (IN) | payer OTHER ==
[2022-08-30 15:20] VITALS: BMI 30.5
[2022-08-30] MEDS ORDERED: IBUPROFEN 600 MG TABLET (FP) PO PRN (17:16)
[2022-08-30] MEDS ORDERED: MAG HYDROX/AL HYDROX/SIMETH 30 ML UNIT-DOSE CUP PO PRN (17:16)
[2022-08-30] MEDS ORDERED: DICYCLOMINE HCL 10 MG CAPSULE PO PRN (17:16)
[2022-08-30] MEDS ORDERED: BENZOCAINE/MENTHOL (CHLORASEPTIC ) LOZENGE MM PRN (17:16)
[2022-08-30] MEDS ORDERED: POLYETHYLENE GLYCOL (HEALTHYLAX) 3350 17 GM PACKET PO PRN (17:16)
[2022-08-30] MEDS ORDERED: MAGNESIUM HYDROX 2400MG/30ML ORAL SUSPENSION 30 ML CUP PO PRN (17:16)
[2022-08-30] MEDS ORDERED: LOPERAMIDE HCL 2 MG CAPSULE PO PRN (17:16)
[2022-08-30] MEDS ORDERED: guaiFENesin 600 MG TABLET.ER (FP) PO PRN (17:16)
[2022-08-30] MEDS ORDERED: LORazepam 1 MG TABLET PO PRN (17:16)
[2022-08-30] MEDS ORDERED: ONDANSETRON *ODT* 4 MG TABLET SL PRN (17:16)
[2022-08-30] MEDS ORDERED: IBUPROFEN 400 MG TABLET (FP) PO PRN (17:16)
[2022-08-30] MEDS ORDERED: NICOTINE 10 MG CARTRIDGE (INHALER) IH PRN (17:16)
[2022-08-30] MEDS ORDERED: ACETAMINOPHEN 325 MG TABLET (FP) PO PRN (17:16)
[2022-08-30] MEDS ORDERED: BISMUTH SUBSALICYLATE 524 MG/30 ML PO PRN (17:16)
[2022-08-30] MEDS ORDERED: BENZONATATE 200 MG CAPSULE PO PRN (17:16)
[2022-08-30] MEDS ORDERED: NALOXONE HCL 0.4 MG/ML VIAL IM PRN (17:16)
[2022-08-30] MEDS ORDERED: NALOXONE HCL (KLOXXADO) 8 MG SPRAY NS PRN (17:16)
[2022-08-30] MEDS ORDERED: LORazepam 2 MG TABLET ONE (17:31)
[2022-08-30] MEDS: LORazepam 2 MG TABLET PO SCH ×2 (17:34→22:57)
[2022-08-30] MEDS ORDERED: ALBUTEROL SO4 HFA INHALER IH PRN (20:24)
[2022-08-30] MEDS: THIAMINE HCL 100 MG TABLET (FP) PO SCH (22:57)
[2022-08-30] MEDS: hydrOXYzine PAMOATE 25 MG CAPSULE (FP) PO PRN (22:57)
[2022-08-30] MEDS: METHOCARBAMOL 500 MG TABLET PO PRN (22:57)
[2022-08-30] MEDS: MELATONIN 5 MG TABLETS PO SCH (22:57)
[2022-08-31] MEDS: LORazepam 2 MG TABLET PO SCH ×4 (06:15→22:49)
[2022-08-31] MEDS: amLODIPine BESYLATE 10 MG TABLET (FP) PO SCH (10:18)
[2022-08-31] MEDS: PRENATAL VITAMINS W/ FOLIC ACID TABLET (FP) PO SCH (10:18)
[2022-08-31] MEDS ORDERED: cloNIDine HCL 0.1 MG TABLET PO PRN (11:06)
[2022-08-31] MEDS ORDERED: methaDONE HCL 10 MG TABLET (FOR DETOX USE ONLY) PO ONE (12:00)
[2022-08-31] MEDS ORDERED: NICOTINE 14 MG/24 HOURS TOPICAL PATCH TD PRN (16:00)
[2022-08-31] MEDS ORDERED: NICOTINE POLACRILEX 2 MG GUM BUC PRN (16:00)
[2022-08-31] MEDS: MELATONIN 5 MG TABLETS PO SCH (22:48)
[2022-08-31] MEDS: THIAMINE HCL 100 MG TABLET (FP) PO SCH (22:48)
[2022-08-31] MEDS: METHOCARBAMOL 500 MG TABLET PO PRN (22:49)
[2022-08-31] MEDS: hydrOXYzine PAMOATE 25 MG CAPSULE (FP) PO PRN (22:49)
[2022-09-01] MEDS: LORazepam 1 MG TABLET PO SCH ×4 (07:01→22:40)
[2022-09-01] MEDS: amLODIPine BESYLATE 10 MG TABLET (FP) PO SCH (10:13)
[2022-09-01] MEDS: PRENATAL VITAMINS W/ FOLIC ACID TABLET (FP) PO SCH (10:13)
[2022-09-01 11:12] LABS: ALBUMIN 2.9 g/dl (3.4-5.0); CALCIUM 8.7 mg/dL (8.5-10.1)
[2022-09-01 11:15] LABS: CREATININE 0.8 mg/dL (0.55-1.3)
[2022-09-01 11:17] LABS: BILIRUBIN,TOTAL 0.4 mg/dL (0.2-1)
[2022-09-01 11:19] LABS: HEMOGLOBIN 12.7 GM/dL (11.7-16.9); MCH 24.4 pg (25.7-33.7); MCHC 32.6 g/dl (32.0-35.9); MEAN CELL VOLUME 74.7 fl (80-96); MEAN PLT VOLUME 9.9 fl (7.5-11.1); PLATELET COUNT 189 10^3/uL (134-434); RBC 5.23 M/mm3 (4.00-5.60); RDW 18.5 % (11.9-15.9); WHITE BLOOD COUNT 3.9 K/mm3 (4.0-10.0)
[2022-09-01] MEDS: MELATONIN 5 MG TABLETS PO SCH (22:40)
[2022-09-01] MEDS: THIAMINE HCL 100 MG TABLET (FP) PO SCH (22:40)
[2022-09-02] MEDS ORDERED: LORazepam 0.5 MG TABLET PO PRN
[2022-09-02] MEDS: LORazepam 0.5 MG TABLET PO SCH ×2 (05:46→10:13)
[2022-09-02 06:28] VITALS: RESP 16
[2022-09-02 09:17] VITALS: PULSE 90; TEMP 97.6
[2022-09-02] MEDS ORDERED: methaDONE HCL 10 MG TABLET (FOR DETOX USE ONLY) PO ONE (10:00)
[2022-09-02] MEDS: amLODIPine BESYLATE 10 MG TABLET (FP) PO SCH (10:14)
[2022-09-02] MEDS: PRENATAL VITAMINS W/ FOLIC ACID TABLET (FP) PO SCH (10:14)
[2022-09-02 13:21] VITALS: BP 160/91
[2022-09-03] MEDS ORDERED: LORazepam 0.5 MG TABLET PO ONE (05:00)
== END 2022-09-02 15:37 | disposition home or self-care (01) | DRG 773 ==
LOC: YASAS 14:54 → Y3N 17:31
PROVIDERS: ADMIT Allergy & Immunology; ATTEND Surgery
DX: F11.23 Opioid dependence with withdrawal (principal); F10.230 Alcohol dependence with withdrawal, uncomplicated; F14.20 Cocaine dependence, uncomplicated; I10 Essential (primary) hypertension; J44.9 Chronic obstructive pulmonary disease, unspecified; J45.20 Mild intermittent asthma, uncomplicated; Z87.891 Personal history of nicotine dependence; Z86.19 Personal history of other infectious and parasitic diseases; Z96.641 Presence of right artificial hip joint; Z88.0 Allergy status to penicillin
CPT/HCPCS: 36415; 71045-TC-FY; 80053; 85027; 86780; C9803-CS; U0003; U0005

== ENCOUNTER 2022-10-30 19:37 | Inpatient (IN) | payer OTHER ==
[2022-10-30 20:32] VITALS: BMI 31.0
[2022-10-31] MEDS ORDERED: MAGNESIUM HYDROX 2400MG/30ML ORAL SUSPENSION 30 ML CUP PO PRN (04:36)
[2022-10-31] MEDS ORDERED: BENZONATATE 200 MG CAPSULE PO PRN (04:36)
[2022-10-31] MEDS ORDERED: IBUPROFEN 600 MG TABLET (FP) PO PRN (04:36)
[2022-10-31] MEDS ORDERED: BENZOCAINE/MENTHOL (CHLORASEPTIC ) LOZENGE MM PRN (04:36)
[2022-10-31] MEDS ORDERED: NALOXONE HCL 0.4 MG/ML VIAL IM PRN (04:36)
[2022-10-31] MEDS ORDERED: POLYETHYLENE GLYCOL (HEALTHYLAX) 3350 17 GM PACKET PO PRN (04:36)
[2022-10-31] MEDS ORDERED: IBUPROFEN 400 MG TABLET (FP) PO PRN (04:36)
[2022-10-31] MEDS ORDERED: LOPERAMIDE HCL 2 MG CAPSULE PO PRN (04:36)
[2022-10-31] MEDS ORDERED: NALOXONE HCL (KLOXXADO) 8 MG SPRAY NS PRN (04:36)
[2022-10-31] MEDS ORDERED: guaiFENesin 600 MG TABLET.ER (FP) PO PRN (04:36)
[2022-10-31] MEDS ORDERED: BISMUTH SUBSALICYLATE 524 MG/30 ML PO PRN (04:36)
[2022-10-31] MEDS ORDERED: MAG HYDROX/AL HYDROX/SIMETH 30 ML UNIT-DOSE CUP PO PRN (04:36)
[2022-10-31] MEDS ORDERED: DICYCLOMINE HCL 10 MG CAPSULE PO PRN (04:36)
[2022-10-31] MEDS ORDERED: ACETAMINOPHEN 325 MG TABLET (FP) PO PRN (04:36)
[2022-10-31] MEDS ORDERED: ONDANSETRON *ODT* 4 MG TABLET SL PRN (04:36)
[2022-10-31] MEDS ORDERED: methaDONE HCL 10 MG TABLET (FOR DETOX USE ONLY) PO ONE (04:53)
[2022-10-31] MEDS ORDERED: cloNIDine HCL 0.1 MG TABLET PO PRN (04:53)
[2022-10-31] MEDS ORDERED: methaDONE HCL 10 MG TABLET (FOR DETOX USE ONLY) ONE (06:13)
[2022-10-31] MEDS: PRENATAL VITAMINS W/ FOLIC ACID TABLET (FP) PO SCH (10:05)
[2022-10-31] MEDS: THIAMINE HCL 100 MG TABLET (FP) PO SCH (22:41)
[2022-10-31] MEDS: MELATONIN 5 MG TABLETS PO SCH (22:41)
[2022-11-01] MEDS: PRENATAL VITAMINS W/ FOLIC ACID TABLET (FP) PO SCH (10:09)
[2022-11-01 10:50] LABS: POTASSIUM 4.2 mmol/L (3.5-5.1)
[2022-11-01 10:58] LABS: ALBUMIN 3.1 g/dl (3.4-5.0); BLOOD UREA NITROGEN 17.6 mg/dL (7-18); HEMATOCRIT 43.8 % (35.4-49); HEMOGLOBIN 13.6 GM/dL (11.7-16.9); MCH 23.3 pg (25.7-33.7); MCHC 31.1 g/dl (32.0-35.9); MEAN CELL VOLUME 74.9 fl (80-96); MEAN PLT VOLUME 10.3 fl (7.5-11.1); PLATELET COUNT 210 10^3/uL (134-434); RBC 5.85 M/mm3 (4.00-5.60); WHITE BLOOD COUNT 4.9 K/mm3 (4.0-10.0)
[2022-11-01 11:03] LABS: BILIRUBIN,TOTAL 1.1 mg/dL (0.2-1); TOT PROT 7.9 g/dl (6.4-8.2)
[2022-11-01] MEDS: MELATONIN 5 MG TABLETS PO SCH (23:11)
[2022-11-01] MEDS: THIAMINE HCL 100 MG TABLET (FP) PO SCH (23:11)
[2022-11-02] MEDS ORDERED: ALBUTEROL SO4 HFA INHALER IH PRN (09:08)
[2022-11-02] MEDS ORDERED: methaDONE HCL 10 MG TABLET (FOR DETOX USE ONLY) PO ONE (10:00)
[2022-11-02] MEDS: PRENATAL VITAMINS W/ FOLIC ACID TABLET (FP) PO SCH (10:01)
[2022-11-02] MEDS: amLODIPine BESYLATE 10 MG TABLET (FP) PO SCH (10:07)
[2022-11-02] MEDS: MELATONIN 5 MG TABLETS PO SCH (23:11)
[2022-11-02] MEDS: THIAMINE HCL 100 MG TABLET (FP) PO SCH (23:11)
[2022-11-03] MEDS: PRENATAL VITAMINS W/ FOLIC ACID TABLET (FP) PO SCH (10:15)
[2022-11-03] MEDS: amLODIPine BESYLATE 10 MG TABLET (FP) PO SCH (10:15)
[2022-11-03] MEDS: METHOCARBAMOL 500 MG TABLET PO PRN (10:16)
[2022-11-03] MEDS: MELATONIN 5 MG TABLETS PO SCH (23:21)
[2022-11-03] MEDS: THIAMINE HCL 100 MG TABLET (FP) PO SCH (23:22)
[2022-11-04] MEDS ORDERED: methaDONE HCL 10 MG TABLET (FOR DETOX USE ONLY) PO ONE (10:00)
[2022-11-04] MEDS: METHOCARBAMOL 500 MG TABLET PO PRN (10:28)
[2022-11-04] MEDS: amLODIPine BESYLATE 10 MG TABLET (FP) PO SCH (10:28)
[2022-11-04] MEDS: PRENATAL VITAMINS W/ FOLIC ACID TABLET (FP) PO SCH (10:29)
[2022-11-04] MEDS: MELATONIN 5 MG TABLETS PO SCH (22:46)
[2022-11-04] MEDS: THIAMINE HCL 100 MG TABLET (FP) PO SCH (22:46)
[2022-11-05 06:07] VITALS: BP 123/74; PULSE 76; RESP 18; TEMP 97.3
== END 2022-11-05 09:50 | disposition home or self-care (01) | DRG 773 ==
LOC: YASAS 19:37 → Y6N 10-31 09:03
PROVIDERS: ADMIT Allergy & Immunology; ATTEND Surgery
PROC: HZ2ZZZZ Detoxification Services for Substance Abuse Treatment (ICD-10-PCS; principal; 2022-10-31)
DX: F11.23 Opioid dependence with withdrawal (principal); F14.20 Cocaine dependence, uncomplicated; Z21 Asymptomatic human immunodeficiency virus [HIV] infection status; J44.9 Chronic obstructive pulmonary disease, unspecified; J45.20 Mild intermittent asthma, uncomplicated; I10 Essential (primary) hypertension; R76.11 Nonspecific reaction to tuberculin skin test without active tuberculosis; Z96.641 Presence of right artificial hip joint; Z99.89 Dependence on other enabling machines and devices; Z86.19 Personal history of other infectious and parasitic diseases; Z87.891 Personal history of nicotine dependence
CPT/HCPCS: 36415; 71046-TC-FY; 80053; 85027; 86780; 87635; 93005; 93010

== ENCOUNTER 2023-01-02 15:11 | Inpatient (IN) | payer OTHER ==
[2023-01-02 17:30] VITALS: BMI 31.3
[2023-01-02] MEDS ORDERED: ALBUTEROL SO4 HFA INHALER IH PRN (19:32)
[2023-01-02] MEDS ORDERED: NALOXONE (NARCAN) HCL 4 MG/0.1 ML SPRAY NS PRN (19:32)
[2023-01-02] MEDS ORDERED: COLLOIDAL OATMEAL 1 BAR EACH TP PRN (19:41)
[2023-01-02] MEDS ORDERED: BISMUTH SUBSALICYLATE 524 MG/30 ML PO PRN (20:06)
[2023-01-02] MEDS ORDERED: ACETAMINOPHEN 325 MG TABLET (FP) PO PRN (20:06)
[2023-01-02] MEDS ORDERED: LOPERAMIDE HCL 2 MG CAPSULE PO PRN (20:06)
[2023-01-02] MEDS ORDERED: BENZONATATE 200 MG CAPSULE PO PRN (20:06)
[2023-01-02] MEDS ORDERED: guaiFENesin 600 MG TABLET.ER (FP) PO PRN (20:06)
[2023-01-02] MEDS ORDERED: POLYETHYLENE GLYCOL (HEALTHYLAX) 3350 17 GM PACKET PO PRN (20:06)
[2023-01-02] MEDS ORDERED: BENZOCAINE/MENTHOL (CHLORASEPTIC ) LOZENGE MM PRN (20:06)
[2023-01-02] MEDS ORDERED: IBUPROFEN 400 MG TABLET (FP) PO PRN (20:06)
[2023-01-02] MEDS ORDERED: MAGNESIUM HYDROX 2400MG/30ML ORAL SUSPENSION 30 ML CUP PO PRN (20:06)
[2023-01-02] MEDS ORDERED: ONDANSETRON *ODT* 4 MG TABLET SL PRN (20:06)
[2023-01-02] MEDS ORDERED: MAG HYDROX/AL HYDROX/SIMETH 30 ML UNIT-DOSE CUP PO PRN (20:06)
[2023-01-02] MEDS ORDERED: amLODIPine BESYLATE 5 MG TABLET (FP) ONE (20:50)
[2023-01-02] MEDS: amLODIPine BESYLATE 10 MG TABLET (FP) PO SCH (20:52)
[2023-01-02] MEDS: MELATONIN 5 MG TABLETS PO SCH (23:57)
[2023-01-02] MEDS: THIAMINE HCL 100 MG TABLET (FP) PO SCH (23:57)
[2023-01-03] MEDS: METHOCARBAMOL 500 MG TABLET PO PRN (03:33)
[2023-01-03] MEDS: hydrOXYzine PAMOATE 25 MG CAPSULE (FP) PO PRN (03:33)
[2023-01-03 10:40] LABS: POTASSIUM 3.4 mmol/L (3.5-5.1)
[2023-01-03 10:43] LABS: CALCIUM 8.3 mg/dL (8.5-10.1)
[2023-01-03 10:44] LABS: ALBUMIN 2.7 g/dl (3.4-5.0); BLOOD UREA NITROGEN 11.6 mg/dL (7-18)
[2023-01-03 10:46] LABS: HEMATOCRIT 40.7 % (35.4-49); HEMOGLOBIN 12.6 GM/dL (11.7-16.9); MCH 23.2 pg (25.7-33.7); MCHC 31.1 g/dl (32.0-35.9); MEAN CELL VOLUME 74.7 fl (80-96); MEAN PLT VOLUME 10.2 fl (7.5-11.1); PLATELET COUNT 189 10^3/uL (134-434); RBC 5.44 M/mm3 (4.00-5.60); RDW 18.2 % (11.9-15.9); WHITE BLOOD COUNT 10.2 K/mm3 (4.0-10.0)
[2023-01-03 10:47] LABS: CREATININE 0.8 mg/dL (0.55-1.3)
[2023-01-03 10:49] LABS: BILIRUBIN,TOTAL 0.4 mg/dL (0.2-1)
[2023-01-03] MEDS: amLODIPine BESYLATE 10 MG TABLET (FP) PO SCH (11:04)
[2023-01-03] MEDS: PRENATAL VITAMINS W/ FOLIC ACID TABLET (FP) PO SCH (11:04)
[2023-01-03] MEDS ORDERED: cloNIDine HCL 0.1 MG TABLET PO PRN (19:46)
[2023-01-03] MEDS ORDERED: methaDONE HCL 10 MG TABLET (FOR DETOX USE ONLY) PO ONE (20:00)
[2023-01-03] MEDS: P-EPHED 60MG/TRIPROLIDI 2.5MG TABLET PO PRN (22:55)
[2023-01-03] MEDS: MELATONIN 5 MG TABLETS PO SCH (22:55)
[2023-01-03] MEDS: THIAMINE HCL 100 MG TABLET (FP) PO SCH (22:55)
[2023-01-04] MEDS: P-EPHED 60MG/TRIPROLIDI 2.5MG TABLET PO PRN ×3 (05:43→22:13)
[2023-01-04] MEDS: POTASSIUM CHLORIDE ORAL LIQUID 20 MEQ/15 ML PO SCH ×2 (10:03→12:59)
[2023-01-04] MEDS: amLODIPine BESYLATE 10 MG TABLET (FP) PO SCH (10:03)
[2023-01-04] MEDS: PRENATAL VITAMINS W/ FOLIC ACID TABLET (FP) PO SCH (10:29)
[2023-01-04] MEDS: IBUPROFEN 600 MG TABLET (FP) PO PRN (18:33)
[2023-01-04] MEDS: THIAMINE HCL 100 MG TABLET (FP) PO SCH (22:11)
[2023-01-04] MEDS: MELATONIN 5 MG TABLETS PO SCH (22:11)
[2023-01-04] MEDS: METHOCARBAMOL 500 MG TABLET PO PRN (22:12)
[2023-01-05] MEDS: METHOCARBAMOL 500 MG TABLET PO PRN ×2 (06:04→12:35)
[2023-01-05] MEDS: IBUPROFEN 600 MG TABLET (FP) PO PRN ×3 (06:04→18:51)
[2023-01-05] MEDS: P-EPHED 60MG/TRIPROLIDI 2.5MG TABLET PO PRN ×2 (06:06→17:25)
[2023-01-05] MEDS: amLODIPine BESYLATE 10 MG TABLET (FP) PO SCH (09:51)
[2023-01-05] MEDS: PRENATAL VITAMINS W/ FOLIC ACID TABLET (FP) PO SCH (09:51)
[2023-01-05] MEDS ORDERED: methaDONE HCL 10 MG TABLET (FOR DETOX USE ONLY) PO ONE (10:00)
[2023-01-05] MEDS: MELATONIN 5 MG TABLETS PO SCH (23:39)
[2023-01-05] MEDS: THIAMINE HCL 100 MG TABLET (FP) PO SCH (23:40)
[2023-01-06] MEDS: PRENATAL VITAMINS W/ FOLIC ACID TABLET (FP) PO SCH (10:04)
[2023-01-06] MEDS: amLODIPine BESYLATE 10 MG TABLET (FP) PO SCH (10:04)
[2023-01-06] MEDS: METHOCARBAMOL 500 MG TABLET PO PRN (12:19)
[2023-01-06] MEDS: P-EPHED 60MG/TRIPROLIDI 2.5MG TABLET PO PRN ×2 (12:20→19:05)
[2023-01-06] MEDS: IBUPROFEN 600 MG TABLET (FP) PO PRN (19:05)
[2023-01-06] MEDS: THIAMINE HCL 100 MG TABLET (FP) PO SCH (23:06)
[2023-01-06] MEDS: MELATONIN 5 MG TABLETS PO SCH (23:06)
[2023-01-07] MEDS: PRENATAL VITAMINS W/ FOLIC ACID TABLET (FP) PO SCH (09:44)
[2023-01-07] MEDS: amLODIPine BESYLATE 10 MG TABLET (FP) PO SCH (09:44)
[2023-01-07] MEDS: METHOCARBAMOL 500 MG TABLET PO PRN ×2 (09:45→18:02)
[2023-01-07] MEDS ORDERED: methaDONE HCL 10 MG TABLET (FOR DETOX USE ONLY) PO ONE (10:00)
[2023-01-07 17:17] VITALS: RESP 17
[2023-01-07] MEDS: hydrOXYzine PAMOATE 25 MG CAPSULE (FP) PO PRN (18:02)
[2023-01-07 20:58] VITALS: TEMP 97.6
[2023-01-07] MEDS: MELATONIN 5 MG TABLETS PO SCH (23:41)
[2023-01-07] MEDS: THIAMINE HCL 100 MG TABLET (FP) PO SCH (23:42)
[2023-01-08 06:01] VITALS: BP 143/71; PULSE 73
[2023-01-08] MEDS: amLODIPine BESYLATE 10 MG TABLET (FP) PO SCH (09:41)
== END 2023-01-08 09:12 | disposition home or self-care (01) | DRG 773 ==
LOC: YASAS 15:11 → Y6N 19:55
PROVIDERS: ADMIT Allergy & Immunology; ATTEND Surgery
PROC: HZ2ZZZZ Detoxification Services for Substance Abuse Treatment (ICD-10-PCS; principal; 2023-01-02)
DX: F11.23 Opioid dependence with withdrawal (principal); F14.20 Cocaine dependence, uncomplicated; F12.20 Cannabis dependence, uncomplicated; E87.6 Hypokalemia; R73.9 Hyperglycemia, unspecified; Z86.19 Personal history of other infectious and parasitic diseases; Z99.89 Dependence on other enabling machines and devices; Z88.0 Allergy status to penicillin
CPT/HCPCS: 36415; 80053; 83036; 84132; 85027; 86780; 87635

== ENCOUNTER 2023-02-24 18:28 | Inpatient (IN) | payer OTHER ==
[2023-02-24 23:27] VITALS: BMI 31.3
[2023-02-25] MEDS ORDERED: IBUPROFEN 400 MG TABLET (FP) PO PRN (00:31)
[2023-02-25] MEDS ORDERED: ACETAMINOPHEN 325 MG TABLET (FP) PO PRN (00:31)
[2023-02-25] MEDS ORDERED: POLYETHYLENE GLYCOL (HEALTHYLAX) 3350 17 GM PACKET PO PRN (00:31)
[2023-02-25] MEDS ORDERED: MAGNESIUM HYDROX 2400MG/30ML ORAL SUSPENSION 30 ML CUP PO PRN (00:31)
[2023-02-25] MEDS ORDERED: BENZOCAINE/MENTHOL (CHLORASEPTIC ) LOZENGE MM PRN (00:31)
[2023-02-25] MEDS ORDERED: guaiFENesin 600 MG TABLET.ER (FP) PO PRN (00:31)
[2023-02-25] MEDS ORDERED: DICYCLOMINE HCL 10 MG CAPSULE PO PRN (00:31)
[2023-02-25] MEDS ORDERED: BENZONATATE 200 MG CAPSULE PO PRN (00:31)
[2023-02-25] MEDS ORDERED: ONDANSETRON *ODT* 4 MG TABLET SL PRN (00:31)
[2023-02-25] MEDS ORDERED: BISMUTH SUBSALICYLATE 524 MG/30 ML PO PRN (00:31)
[2023-02-25] MEDS ORDERED: LOPERAMIDE HCL 2 MG CAPSULE PO PRN (00:31)
[2023-02-25] MEDS ORDERED: NALOXONE HCL (KLOXXADO) 8 MG SPRAY NS PRN (00:31)
[2023-02-25] MEDS ORDERED: MAG HYDROX/AL HYDROX/SIMETH 30 ML UNIT-DOSE CUP PO PRN (00:31)
[2023-02-25] MEDS ORDERED: NALOXONE HCL 0.4 MG/ML VIAL IM PRN (00:31)
[2023-02-25] MEDS ORDERED: cloNIDine HCL 0.1 MG TABLET PO PRN (00:45)
[2023-02-25] MEDS ORDERED: methaDONE HCL 10 MG TABLET (FOR DETOX USE ONLY) PO ONE (00:45)
[2023-02-25] MEDS ORDERED: methaDONE HCL 10 MG TABLET (FOR DETOX USE ONLY) ONE (01:01)
[2023-02-25] MEDS ORDERED: ALBUTEROL SO4 HFA INHALER IH PRN (02:10)
[2023-02-25] MEDS: amLODIPine BESYLATE 10 MG TABLET (FP) PO SCH (10:03)
[2023-02-25] MEDS: PRENATAL VITAMINS W/ FOLIC ACID TABLET (FP) PO SCH (10:03)
[2023-02-25] MEDS: IBUPROFEN 600 MG TABLET (FP) PO PRN (14:10)
[2023-02-25] MEDS: THIAMINE HCL 100 MG TABLET (FP) PO SCH (22:28)
[2023-02-25] MEDS: MELATONIN 5 MG TABLETS PO SCH (22:28)
[2023-02-26] MEDS ORDERED: TRIMETHOBENZAMIDE HCL 200MG/2ML INJ IM PRN (09:17)
[2023-02-26] MEDS: amLODIPine BESYLATE 10 MG TABLET (FP) PO SCH ×2 (10:25→12:14)
[2023-02-26] MEDS: PRENATAL VITAMINS W/ FOLIC ACID TABLET (FP) PO SCH ×2 (10:25→12:14)
[2023-02-26 12:00] LABS: POTASSIUM 4.3 mmol/L (3.5-5.1)
[2023-02-26 12:01] LABS: ALBUMIN 3.1 g/dl (3.4-5.0)
[2023-02-26 12:02] LABS: BLOOD UREA NITROGEN 20.3 mg/dL (7-18); CALCIUM 8.7 mg/dL (8.5-10.1)
[2023-02-26 12:05] LABS: CREATININE 1.2 mg/dL (0.55-1.3)
[2023-02-26 12:07] LABS: BILIRUBIN,TOTAL 0.4 mg/dL (0.2-1); TOT PROT 7.6 g/dl (6.4-8.2)
[2023-02-26 12:09] LABS: HEMATOCRIT 39.8 % (35.4-49); HEMOGLOBIN 12.9 GM/dL (11.7-16.9); MCH 24.2 pg (25.7-33.7); MCHC 32.3 g/dl (32.0-35.9); MEAN PLT VOLUME 9.9 fl (7.5-11.1); PLATELET COUNT 245 10^3/uL (134-434); RBC 5.31 M/mm3 (4.00-5.60); RDW 18.6 % (11.9-15.9); WHITE BLOOD COUNT 6.2 K/mm3 (4.0-10.0)
[2023-02-26] MEDS: IBUPROFEN 600 MG TABLET (FP) PO PRN (17:59)
[2023-02-26] MEDS: THIAMINE HCL 100 MG TABLET (FP) PO SCH (22:20)
[2023-02-26] MEDS: MELATONIN 5 MG TABLETS PO SCH (22:20)
[2023-02-27] MEDS: IBUPROFEN 600 MG TABLET (FP) PO PRN ×3 (05:24→22:14)
[2023-02-27] MEDS ORDERED: methaDONE HCL 10 MG TABLET (FOR DETOX USE ONLY) PO ONE (10:00)
[2023-02-27] MEDS: amLODIPine BESYLATE 10 MG TABLET (FP) PO SCH (10:03)
[2023-02-27] MEDS: PRENATAL VITAMINS W/ FOLIC ACID TABLET (FP) PO SCH (10:03)
[2023-02-27 12:10] LABS: HEMATOCRIT 38.8 % (35.4-49); HEMOGLOBIN 11.9 GM/dL (11.7-16.9); MCH 23.5 pg (25.7-33.7); MCHC 30.6 g/dl (32.0-35.9); MEAN CELL VOLUME 76.8 fl (80-96); MEAN PLT VOLUME 9.4 fl (7.5-11.1); PLATELET COUNT 225 10^3/uL (134-434); RBC 5.05 M/mm3 (4.00-5.60); RDW 18.8 % (11.9-15.9)
[2023-02-27 12:18] LABS: POTASSIUM 4.2 mmol/L (3.5-5.1)
[2023-02-27 12:31] LABS: CALCIUM 8.5 mg/dL (8.5-10.1)
[2023-02-27 12:32] LABS: ALBUMIN 2.9 g/dl (3.4-5.0)
[2023-02-27 12:35] LABS: CREATININE 0.8 mg/dL (0.55-1.3)
[2023-02-27 12:36] LABS: BILIRUBIN,TOTAL 0.3 mg/dL (0.2-1); TOT PROT 6.9 g/dl (6.4-8.2)
[2023-02-27] MEDS: METHOCARBAMOL 500 MG TABLET PO PRN (19:23)
[2023-02-27] MEDS: THIAMINE HCL 100 MG TABLET (FP) PO SCH (22:15)
[2023-02-27] MEDS: MELATONIN 5 MG TABLETS PO SCH (22:15)
[2023-02-28] MEDS: amLODIPine BESYLATE 10 MG TABLET (FP) PO SCH (09:41)
[2023-02-28] MEDS: PRENATAL VITAMINS W/ FOLIC ACID TABLET (FP) PO SCH (09:41)
[2023-02-28] MEDS: IBUPROFEN 600 MG TABLET (FP) PO PRN ×2 (09:43→20:44)
[2023-02-28] MEDS: MELATONIN 5 MG TABLETS PO SCH (22:43)
[2023-02-28] MEDS: THIAMINE HCL 100 MG TABLET (FP) PO SCH (22:44)
[2023-03-01] MEDS: IBUPROFEN 600 MG TABLET (FP) PO PRN ×2 (09:52→15:32)
[2023-03-01] MEDS: PRENATAL VITAMINS W/ FOLIC ACID TABLET (FP) PO SCH (09:53)
[2023-03-01] MEDS: amLODIPine BESYLATE 10 MG TABLET (FP) PO SCH (09:53)
[2023-03-01] MEDS: METHOCARBAMOL 500 MG TABLET PO PRN (09:53)
[2023-03-01] MEDS ORDERED: methaDONE HCL 10 MG TABLET (FOR DETOX USE ONLY) PO ONE (10:00)
[2023-03-01] MEDS: MELATONIN 5 MG TABLETS PO SCH (22:53)
[2023-03-01] MEDS: THIAMINE HCL 100 MG TABLET (FP) PO SCH (22:53)
[2023-03-02 09:21] VITALS: BP 143/87; PULSE 94; RESP 17; TEMP 98
[2023-03-02] MEDS: amLODIPine BESYLATE 10 MG TABLET (FP) PO SCH (10:21)
[2023-03-02] MEDS: PRENATAL VITAMINS W/ FOLIC ACID TABLET (FP) PO SCH (10:21)
== END 2023-03-02 11:30 | disposition other institution (70) | DRG 773 ==
LOC: YASAS 18:28 → Y3N 02-25 01:42
PROVIDERS: ADMIT Allergy & Immunology; ATTEND Surgery
PROC: HZ2ZZZZ Detoxification Services for Substance Abuse Treatment (ICD-10-PCS; principal; 2023-02-25)
DX: F11.23 Opioid dependence with withdrawal (principal); F14.20 Cocaine dependence, uncomplicated; Z21 Asymptomatic human immunodeficiency virus [HIV] infection status; I10 Essential (primary) hypertension; J45.20 Mild intermittent asthma, uncomplicated; Z96.641 Presence of right artificial hip joint; Z99.89 Dependence on other enabling machines and devices; Z86.19 Personal history of other infectious and parasitic diseases; Z86.11 Personal history of tuberculosis; Z86.39 Personal history of other endocrine, nutritional and metabolic disease; Z88.0 Allergy status to penicillin
CPT/HCPCS: 36415; 80053; 80307; 82962; 85027; 86780; 87635; 87811

== ENCOUNTER 2023-04-03 09:29 | Inpatient (IN) | payer OTHER ==
[2023-04-03 10:13] VITALS: BMI 31.3
[2023-04-03] MEDS ORDERED: IBUPROFEN 400 MG TABLET (FP) PO PRN (10:42)
[2023-04-03] MEDS ORDERED: MAGNESIUM HYDROX 2400MG/30ML ORAL SUSPENSION 30 ML CUP PO PRN (10:42)
[2023-04-03] MEDS ORDERED: MAG HYDROX/AL HYDROX/SIMETH 30 ML UNIT-DOSE CUP PO PRN (10:42)
[2023-04-03] MEDS ORDERED: NALOXONE HCL (KLOXXADO) 8 MG SPRAY NS PRN (10:42)
[2023-04-03] MEDS ORDERED: LOPERAMIDE HCL 2 MG CAPSULE PO PRN (10:42)
[2023-04-03] MEDS ORDERED: NALOXONE HCL 0.4 MG/ML VIAL IM PRN (10:42)
[2023-04-03] MEDS ORDERED: ACETAMINOPHEN 325 MG TABLET (FP) PO PRN (10:42)
[2023-04-03] MEDS ORDERED: COLLOIDAL OATMEAL 1 BAR EACH TP PRN (10:42)
[2023-04-03] MEDS ORDERED: POLYETHYLENE GLYCOL (HEALTHYLAX) 3350 17 GM PACKET PO PRN (10:42)
[2023-04-03] MEDS ORDERED: BENZONATATE 200 MG CAPSULE PO PRN (10:42)
[2023-04-03] MEDS ORDERED: guaiFENesin 600 MG TABLET.ER (FP) PO PRN (10:42)
[2023-04-03] MEDS ORDERED: BENZOCAINE/MENTHOL (CHLORASEPTIC ) LOZENGE MM PRN (10:42)
[2023-04-03] MEDS ORDERED: IBUPROFEN 600 MG TABLET (FP) PO PRN (10:42)
[2023-04-03] MEDS ORDERED: ALBUTEROL SO4 HFA INHALER IH PRN (13:25)
[2023-04-03] MEDS ORDERED: MELATONIN 5 MG TABLETS PO SCH (22:00)
[2023-04-03] MEDS ORDERED: THIAMINE HCL 100 MG TABLET (FP) PO SCH (22:00)
[2023-04-04 07:15] VITALS: BP 163/91; PULSE 100; RESP 17; TEMP 97.3
[2023-04-04] MEDS ORDERED: amLODIPine BESYLATE 10 MG TABLET (FP) PO SCH (10:00)
[2023-04-04] MEDS ORDERED: PRENATAL VITAMINS W/ FOLIC ACID TABLET (FP) PO SCH (10:00)
[2023-04-04 12:06] LABS: POTASSIUM 4.6 mmol/L (3.5-5.1)
[2023-04-04 12:08] LABS: CALCIUM 8.6 mg/dL (8.5-10.1)
[2023-04-04 12:09] LABS: ALBUMIN 3.1 g/dl (3.4-5.0); BLOOD UREA NITROGEN 12.6 mg/dL (7-18)
[2023-04-04 12:13] LABS: CREATININE 0.8 mg/dL (0.55-1.3)
[2023-04-04 12:14] LABS: BILIRUBIN,TOTAL 0.2 mg/dL (0.2-1); TOT PROT 7.4 g/dl (6.4-8.2)
[2023-04-04 12:22] LABS: URINE APPEARANCE CLEAR; URINE BILIRUBIN NEGATIVE (NEGATIVE); URINE COLOR YELLOW; URINE GLUCOSE (UA) NEGATIVE (NEGATIVE); URINE KETONE NEGATIVE (NEGATIVE); URINE LEUK ESTERASE NEGATIVE (NEGATIVE); URINE NITRITE NEGATIVE (NEGATIVE); URINE PROTEIN NEGATIVE (NEGATIVE)
[2023-04-04 12:43] LABS: HEMATOCRIT 42.4 % (35.4-49); HEMOGLOBIN 13.5 GM/dL (11.7-16.9); MCH 23.8 pg (25.7-33.7); MCHC 31.8 g/dl (32.0-35.9); MEAN PLT VOLUME 9.3 fl (7.5-11.1); PLATELET COUNT 160 10^3/uL (134-434); RBC 5.65 M/mm3 (4.00-5.60); RDW 18.5 % (11.9-15.9); WHITE BLOOD COUNT 6.3 K/mm3 (4.0-10.0)
== END 2023-04-04 08:33 | disposition left against medical advice (07) | DRG 770 ==
LOC: YASAS 09:29 → Y3W 13:23
PROVIDERS: ADMIT Allergy & Immunology; ATTEND Psychiatry & Neurology Pain Medicine
PROC: HZ42ZZZ Group Counseling for Substance Abuse Treatment, Cognitive-Behavioral (ICD-10-PCS; principal; 2023-04-03)
DX: F11.20 Opioid dependence, uncomplicated (principal); Z21 Asymptomatic human immunodeficiency virus [HIV] infection status; I10 Essential (primary) hypertension; J44.9 Chronic obstructive pulmonary disease, unspecified; J45.20 Mild intermittent asthma, uncomplicated; R76.11 Nonspecific reaction to tuberculin skin test without active tuberculosis; Z96.641 Presence of right artificial hip joint; Z86.19 Personal history of other infectious and parasitic diseases; Z88.0 Allergy status to penicillin
CPT/HCPCS: 36415; 71046-TC-FY; 80053; 80307; 81003; 85027; 86780; 87635

== ENCOUNTER 2023-06-05 16:10 | Inpatient (IN) | payer OTHER ==
[2023-06-05 17:01] VITALS: BMI 31.1
[2023-06-05] MEDS ORDERED: hydrOXYzine PAMOATE 25 MG CAPSULE (FP) PO PRN (18:02)
[2023-06-05] MEDS ORDERED: ACETAMINOPHEN 325 MG TABLET (FP) PO PRN (18:02)
[2023-06-05] MEDS ORDERED: NALOXONE HCL (KLOXXADO) 8 MG SPRAY NS PRN (18:02)
[2023-06-05] MEDS ORDERED: IBUPROFEN 600 MG TABLET (FP) PO PRN (18:02)
[2023-06-05] MEDS ORDERED: P-EPHED 60MG/TRIPROLIDI 2.5MG TABLET PO PRN (18:02)
[2023-06-05] MEDS ORDERED: POLYETHYLENE GLYCOL (HEALTHYLAX) 3350 17 GM PACKET PO PRN (18:02)
[2023-06-05] MEDS ORDERED: MAG HYDROX/AL HYDROX/SIMETH 30 ML UNIT-DOSE CUP PO PRN (18:02)
[2023-06-05] MEDS ORDERED: BENZOCAINE/MENTHOL (CHLORASEPTIC ) LOZENGE MM PRN (18:02)
[2023-06-05] MEDS ORDERED: guaiFENesin 600 MG TABLET.ER (FP) PO PRN (18:02)
[2023-06-05] MEDS ORDERED: NALOXONE HCL 0.4 MG/ML VIAL IM PRN (18:02)
[2023-06-05] MEDS ORDERED: BENZONATATE 200 MG CAPSULE PO PRN (18:02)
[2023-06-05] MEDS ORDERED: MAGNESIUM HYDROX 2400MG/30ML ORAL SUSPENSION 30 ML CUP PO PRN (18:02)
[2023-06-05] MEDS ORDERED: IBUPROFEN 400 MG TABLET (FP) PO PRN (18:02)
[2023-06-05] MEDS ORDERED: DICYCLOMINE HCL 10 MG CAPSULE PO PRN (18:02)
[2023-06-05] MEDS ORDERED: ALBUTEROL SO4 HFA INHALER IH PRN (18:04)
[2023-06-05] MEDS: MELATONIN 5 MG TABLETS PO SCH (22:40)
[2023-06-05] MEDS: THIAMINE HCL 100 MG TABLET (FP) PO SCH (22:40)
[2023-06-06] MEDS ORDERED: methaDONE HCL 10 MG TABLET (FOR DETOX USE ONLY) PO ONE ×2 (08:33→10:30)
[2023-06-06] MEDS ORDERED: cloNIDine HCL 0.1 MG TABLET PO PRN (08:33)
[2023-06-06] MEDS: amLODIPine BESYLATE 5 MG TABLET (FP) PO SCH (10:58)
[2023-06-06] MEDS: METHOCARBAMOL 500 MG TABLET PO PRN (10:58)
[2023-06-06] MEDS: PRENATAL VITAMINS W/ FOLIC ACID TABLET (FP) PO SCH (10:58)
[2023-06-06 11:15] LABS: HEMATOCRIT 38.3 % (35.4-49); HEMOGLOBIN 12.2 GM/dL (11.7-16.9); MCH 24.3 pg (25.7-33.7); MCHC 31.9 g/dl (32.0-35.9); MEAN CELL VOLUME 76.2 fl (80-96); MEAN PLT VOLUME 9.5 fl (7.5-11.1); PLATELET COUNT 199 10^3/uL (134-434); RBC 5.02 M/mm3 (4.00-5.60); RDW 17.8 % (11.9-15.9); WHITE BLOOD COUNT 4.9 K/mm3 (4.0-10.0)
[2023-06-06 11:44] LABS: CALCIUM 8.6 mg/dL (8.5-10.1)
[2023-06-06 11:45] LABS: ALBUMIN 2.6 g/dl (3.4-5.0); BLOOD UREA NITROGEN 18.9 mg/dL (7-18)
[2023-06-06 11:48] LABS: CREATININE 0.8 mg/dL (0.55-1.3)
[2023-06-06 11:49] LABS: BILIRUBIN,TOTAL 0.2 mg/dL (0.2-1)
[2023-06-06 11:50] LABS: TOT PROT 6.7 g/dl (6.4-8.2)
[2023-06-06] MEDS: THIAMINE HCL 100 MG TABLET (FP) PO SCH (22:16)
[2023-06-06] MEDS: MELATONIN 5 MG TABLETS PO SCH (22:16)
[2023-06-07] MEDS: PRENATAL VITAMINS W/ FOLIC ACID TABLET (FP) PO SCH (09:52)
[2023-06-07] MEDS: amLODIPine BESYLATE 5 MG TABLET (FP) PO SCH (09:52)
[2023-06-07] MEDS ORDERED: amLODIPine BESYLATE 5 MG TABLET (FP) PO ONE (13:30)
[2023-06-07] MEDS: METHOCARBAMOL 500 MG TABLET PO PRN (19:45)
[2023-06-07] MEDS: MELATONIN 5 MG TABLETS PO SCH (21:10)
[2023-06-07] MEDS: THIAMINE HCL 100 MG TABLET (FP) PO SCH (21:10)
[2023-06-08] MEDS: LOPERAMIDE HCL 2 MG CAPSULE PO PRN ×2 (02:55→10:35)
[2023-06-08] MEDS: BISMUTH SUBSALICYLATE 524 MG/30 ML PO PRN ×2 (06:49→11:39)
[2023-06-08] MEDS ORDERED: methaDONE HCL 10 MG TABLET (FOR DETOX USE ONLY) PO ONE (10:00)
[2023-06-08] MEDS: PRENATAL VITAMINS W/ FOLIC ACID TABLET (FP) PO SCH (10:34)
[2023-06-08] MEDS: amLODIPine BESYLATE 10 MG TABLET (FP) PO SCH (10:35)
[2023-06-08] MEDS: ONDANSETRON *ODT* 4 MG TABLET SL PRN (15:57)
[2023-06-08] MEDS: MELATONIN 5 MG TABLETS PO SCH (22:34)
[2023-06-08] MEDS: THIAMINE HCL 100 MG TABLET (FP) PO SCH (22:34)
[2023-06-09] MEDS: ONDANSETRON *ODT* 4 MG TABLET SL PRN (08:58)
[2023-06-09] MEDS: amLODIPine BESYLATE 10 MG TABLET (FP) PO SCH (10:21)
[2023-06-09] MEDS: LOPERAMIDE HCL 2 MG CAPSULE PO PRN (10:21)
[2023-06-09] MEDS: PRENATAL VITAMINS W/ FOLIC ACID TABLET (FP) PO SCH (10:23)
[2023-06-09] MEDS: BISMUTH SUBSALICYLATE 524 MG/30 ML PO PRN (20:19)
[2023-06-09] MEDS ORDERED: DIPHENOXYLATE 2.5/ATROPINE.025 1 COMBO TABLET PO ONE (20:36)
[2023-06-09] MEDS: MELATONIN 5 MG TABLETS PO SCH (23:48)
[2023-06-09] MEDS: THIAMINE HCL 100 MG TABLET (FP) PO SCH (23:48)
[2023-06-10 07:08] LABS: POTASSIUM 4.1 mmol/L (3.5-5.1)
[2023-06-10 07:12] LABS: CALCIUM 8.4 mg/dL (8.5-10.1)
[2023-06-10 07:13] LABS: BLOOD UREA NITROGEN 15.1 mg/dL (7-18)
[2023-06-10 07:16] LABS: CREATININE 0.9 mg/dL (0.55-1.3)
[2023-06-10 07:34] LABS: HEMATOCRIT 40.4 % (35.4-49); HEMOGLOBIN 12.5 GM/dL (11.7-16.9); MCH 23.6 pg (25.7-33.7); MCHC 30.8 g/dl (32.0-35.9); MEAN CELL VOLUME 76.6 fl (80-96); MEAN PLT VOLUME 9.8 fl (7.5-11.1); PLATELET COUNT 223 10^3/uL (134-434); RBC 5.28 M/mm3 (4.00-5.60); RDW 18.5 % (11.9-15.9); WHITE BLOOD COUNT 5.5 K/mm3 (4.0-10.0)
[2023-06-10] MEDS ORDERED: methaDONE HCL 10 MG TABLET (FOR DETOX USE ONLY) PO ONE (10:00)
[2023-06-10] MEDS: LOPERAMIDE HCL 2 MG CAPSULE PO PRN ×2 (10:32→17:26)
[2023-06-10] MEDS: ONDANSETRON *ODT* 4 MG TABLET SL PRN (10:32)
[2023-06-10] MEDS: PRENATAL VITAMINS W/ FOLIC ACID TABLET (FP) PO SCH (10:32)
[2023-06-10] MEDS: amLODIPine BESYLATE 10 MG TABLET (FP) PO SCH (10:33)
[2023-06-10 11:01] LABS: ANISOCYTOSIS 0; HELMET CELLS 0; HOWELL-JOLLY BODIES 0; MACROCYTOSIS 0; OVALOCYTE 0; ROULEAU 0; SICKELED CELLS 0; TARGET CELLS 0; TEAR DROP CELLS 0; TOXIC GRANULATION 0
[2023-06-10] MEDS: THIAMINE HCL 100 MG TABLET (FP) PO SCH (22:37)
[2023-06-10] MEDS: MELATONIN 5 MG TABLETS PO SCH (22:37)
[2023-06-11 06:03] VITALS: BP 123/62; PULSE 71; RESP 18; TEMP 98.3
== END 2023-06-11 09:01 | disposition home or self-care (01) | DRG 773 ==
LOC: YASAS 16:10 → Y3N 19:00
PROVIDERS: ADMIT Allergy & Immunology; ATTEND Allergy & Immunology
PROC: HZ2ZZZZ Detoxification Services for Substance Abuse Treatment (ICD-10-PCS; principal; 2023-06-05)
DX: F11.23 Opioid dependence with withdrawal (principal); F14.20 Cocaine dependence, uncomplicated; Z21 Asymptomatic human immunodeficiency virus [HIV] infection status; I10 Essential (primary) hypertension; J45.909 Unspecified asthma, uncomplicated; R19.7 Diarrhea, unspecified; R74.01 Elevation of levels of liver transaminase levels; Z96.641 Presence of right artificial hip joint; Z86.39 Personal history of other endocrine, nutritional and metabolic disease; Z88.0 Allergy status to penicillin; Z87.09 Personal history of other diseases of the respiratory system
CPT/HCPCS: 36415; 80048; 80053; 85025; 85027; 86780; 87045; 87046; 87635; 87811; Q0162